=== PATIENT | male | born 1950 | race Caucasian/White ===

== ENCOUNTER 2018-11-25 11:53 | Inpatient (IN) | payer OTHER ==
--- NOTE | 2018-11-26 13:34 | R.PREADM ---
SCREENING DATE AND TIME 11/25/2018 12:03 (CDT) ANTICIPATED REHAB ADMISSION DATE 11/27/2018 REFERRING FACILITY [facility] REFERRAL DATE AND TIME 11/25/2018 12:23 (CDT) ACUTE ADMIT DATE 11/04/2018 Previous Rehabilitation(s): No. REFERRING PHYSICIAN Mark Farias REHAB FACILITY [facility] CLINICAL LIAISON Michael Sheehan PHYSICIAN REVIEWER Dr. Dash Hernandez M.D. MR# [id number] NAME YUMIKO NAVARRO ADDRESS [id number] [place] [address] [address]IP [address] DATE OF 1950 AGE 68 SSN# [id number] GENDER male MARITAL STATUS RACE white ADMIT FROM 02 - [facility] PRE-HOSPITAL LIVING SETTING 01 - Home (private home/apt. board/care, assisted living, long term, transitional living) HOME TYPE AND DETAILS Type of home: single family house # of levels in the residence: 1 # of steps to enter the residence: 3 # of steps within the residence: 0 PRE-HOSPITAL LIVING WITH Family/Relatives FAMILY SUPPORT Yes PRIMARY FAMILY CONTACT NAME Rosetta Amanda PRIMARY FAMILY CONTACT PHONE PHONE PRIMARY FAMILY CONTACT ON ADM.? no IS PRIMARY FAMILY CONTACT AUTH. REP.? no 1ST EMERGENCY CONTACT Rosetta Amanda 1ST CONTACT PHONE PHONE 1ST CONTACT ON ADM. no IS 1ST CONTACT AUTH. REP.? no PHONE 2ND CONTACT ON ADM.? no PATIENT EMPLOYMENT STATUS Retired (for age) PATIENT EMPLOYER No Employer PAYOR INFORMATION: 1ST PAYOR NAME MEDICARE 1ST PAYOR PHONE [phone] 1ST PAYOR INJURY/ILLNESS DUE TO ACCIDENT? No ANOTHER LIBERTARIAN RESPONSIBLE? No PRIMARY REHAB/ACUTE DIAGNOSIS: SEVERE PERIPHERAL ARTERY DISEASE ONSET DATE 11/04/2018 REHAB IMPAIRMENT CATEGORY (TESS): 11 Amputation, other (Amp/NLE) MEETS 60% rule AFFECTED EXTREMITIES: RLE PRIMARY DIAGNOSIS-RELATED SURGERIES: RIGHT TOE AMPUTATION on 11/06/2018 FOOT DEBRIDEMENT on 11/19/2018 FOOT DEBRIDEMENT on 11/13/2018 FEMORAL TIBIAL BYPASS GRAFT on 11/19/2018 ARTERIOGRAM on 11/13/2018 ARTERIOGRAM on 11/06/2018 FOOT DEBRIDEMENT on 11/23/2018 RIGHT TRANSMETATARSAL AMPUTATION on 11/23/2018 WOUND CLOSURE on 11/23/2018 COMORBID REHAB/ACUTE DIAGNOSES: - Non-Tiered Type 2 diabetes mellitus with other specified complication (E11.69) Tobacco abuse - N/A HLD HTN peripheral vascular disease (PVD) SUMMARY OF ACUTE HOSPITALIZATION: Pt. is a 68 yo Right-handed white male. On 11/04/2018 he was admitted to [facility] with diagnosis SEVERE PERIPHERAL ARTERY DISEASE. His impairment category is Amputation of Limb 05 - Other Amputation (05.9). Pre-morbidly, Pt. was independent/mod-I in Self-Care, Sphincter Control, Transfers Control, Locomotio n, Communication, and Social Cognition; and he had good Sphincter Control. Currently, he has deficits of Transfers Control, Locomotion, Endurance, Balance, Safety Awareness, an d Self-Care. Pt. is now referred to [facility] for acute in-patient rehabilitation in order to maximize patient's functional independence in activities of daily living, strength, ROM, and mobi lity. Patient has realistic goal of being discharged at assistance level 6-Rian to reside at Home with Fam jenn/Relatives. CONSULT: Consult Certified Prosthetic for prosthesis construction PAST MEDICAL HISTORY HLD HTN Tobacco abuse Type 2 diabetes mellitus with other specified complication (E11.69) peripheral vascular disease (PVD) MEDICATION ALLERGIES: No Known Drug Allergies (NKDA) ENVIRONMENTAL ALLERGIES: None Known - Substance Allergies None Known - Other Allergies None Known CODE STATUS: Full code WEIGHT/HEIGHT/BMI: WEIGHT 186 lbs HEIGHT 6' 0" BMI 25.2 DIET: - Diet Type ADA 1800 - Diet - Solid Texture Regular - Diet - Liquid Texture Regular - Tube Feed N/A SKIN DIAGRAM: Incision on Right foot; extent - average; stage - NS(Not Stageable). Treatment - Per Physician's Orde rs. REVIEW OF SYSTEMS: - Gen Alert and awake Lying in bed No apparent distress Oriented to: person, time, and place - Vital Signs Temperature: 98.6 F SBP/DBP: 149/57 Pulse: 98 Resp: 18 Vital signs stable, afebrile - CVS RRR VITAL SIGNS Temperature: 98.6 F SBP/DBP: 149/57 Pulse: 98 Resp: 18 Vital signs stable, afebrile CURRENT SPHINCTER CONTROL: Pre-hospital bladder status: continent # of bladder accidents in the last 7 days prior to screenin Pre-hospital bowel status: continent # of bowel accidents in the last 7 days prior to screenin Last Bowel Movement Date: DETAILED CURRENT FUNCTIONAL STATUS: - Bladder accident frequency: Ind - No accidents in the past 7 days - Bowel accident frequency: Ind - No accidents in the past 7 days - Walking score based on distance walked: 1(<=50ft) - Wheelchair score based on distance traveled: 0(N/A) FUNCTIONAL STATUS: - Self-Care A. Eating Ind Ind B. Grooming Ind sup C. Bathing Ind sup D. Dressing - Upper Ind sup E. Dressing - Lower Ind sup F. Toileting Ind sup - Sphincter Control G: Bladder control Ind Ind H: Bowel control Ind Ind - Transfers Control I. Bed/Chair/Wheelchair Ind Brigid J. Toilet Ind Brigid K. Tub/Shower Ind ADNO - Locomotion L. Walk/Wheelchair (C) Ind Brigid L. Walk/Wheelchair (W) Ind Brigid M. Stairs Ind ADNO - Communication N. Comprehension (B) Ind Ind O. Expression (B) Ind Ind - Social Cognition P. Social Interaction Ind Ind Q. Problem Solving Ind Ind R. Memory Ind Ind - Endurance Fair - Balance Fair - Safety Awareness Fair CURRENT FUNC. DEFICITS: Transfers Control, Locomotion, Endurance, Balance, Safety Awareness, and Self-Care THERAPY NOTES FROM ACUTE CARE: Attached. SPECIAL NEEDS: - Safety Concerns Skin breakdown precautions needed due to skin breakdown risk PRECAUTIONS: - Weight Bearing Precaution NWB right LE PATIENT NEEDS ACTIVE AND ONGOING THERAPEUTIC INTERVENTION OF MULTIPLE THERAPY DISCIPLINES, INCLUDING: - Orthotics/Prosthetics Prosthetic Evaluation. - Occupational Therapy Evaluate and Treat. - Physical Therapy Evaluate and Treat. PATIENT NEEDS CLOSE MEDICAL SUPERVISION BY A REHABILITATION PHYSICIAN FOR: Bowel and Bladder Management Coordination of Treatment Team Diabetes Management Medical and Co-Morbidity Management Wound Care Pain Management DVT Management PATIENT REQUIRES 24X7 REHAB NURSING FOR MEDICAL AND FUNCTIONAL MGT. OF THE FOLLOWING DEFICITS: ADL's Ambulation Bowel and Bladder Management Communication Disease Management Medication Management Patient/Family Education Providing Safe Environment Skin Integrity Transfers Pain Management PATIENT REQUIRES INTENSIVE, COORDINATED INTERDISCIPLINARY APPROACH TO REHAB: Arranging Home Equipment/Services Discharge Planning Family Intervention/Training Physics Department Chair/Case Management PATIENT REHAB POTENTIAL: Expected level of measurable improvement will be of a practical value to patient's functional capacit y or adaptations to impairments Has a viable Discharge Plan Medically appropriate; condition is sufficiently stable to participate in intensive rehab program Patient is able and expected to receive 3 hours of individualized therapy daily on at least 5 of ever y 7 days Patient's prognosis for significant practical improvement within a reasonable period of time appears Good DISCHARGE PLAN: - Estimated Length of Stay (days) 13. - Consensus on plan Discharge plan has been discussed with primary caregiver. Patient/Family is in agreement with the devika n. Primary caregiver is in agreement with the plan. - Patient/Family Goals Return home with assistance. - Planned Living Setting Upon Discharge Home, to live with Family/Relatives. RECOMMENDED CARE LEVEL: IRF RECOMMENDATION DETAILS: Recommended Admission to Comprehensive Rehabilitation Program to Increase Functional [place] SCREENER'S COMPLETENESS CONFIRMATION: - Screening Confirmation The patient data collection on this preadmission screening form is finished PHYSICIANS REVIEW AND ADMISSION DETERMINATION Admit - Based on my review of the Pre-Admission Screening results, in my medical judgment and experie nce, I concur with the findings and recommend admission to [facility], as this patient requires an IRF level of care. SIGNATURE PANEL: Clinical Liaison - [electronically] signed by Michael Sheehan on 11/25/2018 at 13:21 (CDT) Physician Reviewer - [electronically] signed by Dr. Dash Hernandez M.D. on 11/26/2018 at 13:33 (CDT )
--- OUTSIDE RECORDS SUMMARY | 2018-11-26 19:05 | XMS REPORT ---
:1950 [facility] Address [address] [place] [address] Dr. Zamora [address] [place] [id number] Care Team Providers Name Role Phone Unavailable Unavailable Unavailable Problems This patient has no known problems. Allergies, Adverse Reactions, Alerts This patient has no known allergies or adverse reactions. Medications This patient has no known medications.
[2018-11-26] MEDS ORDERED: D50W 25 GM/50 ML SYRINGE IV PRN (19:15)
[2018-11-26] MEDS ORDERED: GLUCAGON 1 MG/VIAL IM PRN (19:15)
[2018-11-26 20:18] LABS: Urine Appearance CLEAR; Urine Bilirubin NEGATIVE (NEG); Urine Blood NEGATIVE (NEG); Urine Color DK YELLOW; Urine Glucose NEGATIVE (NEG); Urine Protein TRACE (NEG)
[2018-11-26] MEDS: INSULIN -REGULAR HUMAN 50 UNIT/0.5 ML ML SQ SCH (20:25)
[2018-11-26 20:36] LABS: Urine Bacteria <20 /HPF (NONE SEEN); Urine RBC <5 /HPF (NONE SEEN)
[2018-11-26] MEDS: ATORVASTATIN 80 MG TAB PO SCH (20:36)
[2018-11-26 20:37] LABS: Urine Culture Reflex Order NOT NEEDED
[2018-11-27 06:42] LABS: Absolute Lymphocytes (CBC) 2.5 K/uL (0.7-4.9); Absolute Monocytes 0.9 K/uL (0.1-1.3); Absolute Neutrophil 6.1 K/uL (1.8-8.0); Basophils % 1.1 % (0-1.3); Lymphocytes % 24.6 % (15.3-44.8); MPV 6.7 fL (7.6-11.3); Monocytes % 9.3 % (3.3-12.3); RBC Red Blood Cell Count 2.89 M/uL (4.33-5.43)
[2018-11-27 07:01] LABS: BUN Blood Urea Nitrogen 16 mg/dL (7-18); Bicarbonate 29 mmol/L (21-32); Glucose Level 121 mg/dL (74-106); Magnesium 2.3 mg/dL (1.8-2.4); Potassium 4.3 mmol/L (3.5-5.1); Prealbumin 9.1 mg/dL (20-40); Sodium Level 139 mmol/L (136-145)
[2018-11-27] MEDS: CLOPIDOGREL 75 MG TABLET PO SCH (07:16)
[2018-11-27] MEDS: INSULIN -REGULAR HUMAN 50 UNIT/0.5 ML ML SQ SCH ×4 (07:30→21:39)
[2018-11-27] MEDS: METFORMIN HCL 500 MG TAB PO SCH (07:40)
[2018-11-27] MEDS: HYDROCODONE/APAP 5/325 MG TAB PO PRN ×2 (07:40→12:54)
[2018-11-27] MEDS: INSULIN GLARGINE 100 UNITS/ML SQ SCH (09:19)
[2018-11-27] MEDS: INSULIN LISPRO 100 UNIT/1 ML SQ SCH ×3 (09:20→17:38)
--- NOTE | 2018-11-27 10:04 | P.RH.PN ---
Estimated Length of Stay: 14 Expected Discharge Date: 12/09/18 Discharge Disposition Plan: Home Family Support: Yes Residential Goal: Mobility, Transfers, Self Care Vital Signs: Last Vital Signs Temp 97.8 F 11/27/18 07:10 Pulse 75 11/27/18 07:10 Resp 18 11/27/18 07:10 BP 100/52 L 11/27/18 07:10 Pulse Ox 91 11/27/18 07:10 Laboratory: Laboratory Last Values WBC 10.1 K/uL (4.3-10.9) 11/27/18 06:25 RBC 2.89 M/uL (4.33-5.43) L 11/27/18 06:25 Hgb 8.7 g/dL (13.6-17.9) L 11/27/18 06:25 Hct 25.0 % (39.6-49.0) L 11/27/18 06:25 MCV 86.5 fL (80-100) 11/27/18 06:25 MCH 29.9 pg (27.0-35.0) 11/27/18 06:25 MCHC 34.6 g/dL (32.0-36.0) 11/27/18 06:25 RDW 14.0 % (12.1-15.2) 11/27/18 06:25 Plt Count 490 K/uL (152-406) H 11/27/18 06:25 MPV 6.7 fL (7.6-11.3) L 11/27/18 06:25 Neutrophils % 61.0 % (41.7-73.7) 11/27/18 06:25 Lymphocytes % 24.6 % (15.3-44.8) 11/27/18 06:25 Monocytes % 9.3 % (3.3-12.3) 11/27/18 06:25 Eosinophils % 4.0 % (0-4.4) 11/27/18 06:25 Basophils % 1.1 % (0-1.3) 11/27/18 06:25 Absolute Neutrophils 6.1 K/uL (1.8-8.0) 11/27/18 06:25 Absolute Lymphocytes 2.5 K/uL (0.7-4.9) 11/27/18 06:25 Absolute Monocytes 0.9 K/uL (0.1-1.3) 11/27/18 06:25 Absolute Eosinophils 0.4 K/uL (0-0.5) 11/27/18 06:25 Absolute Basophils 0.1 K/uL (0-0.5) 11/27/18 06:25 Sodium 139 mmol/L (136-145) 11/27/18 06:25 Potassium 4.3 mmol/L (3.5-5.1) 11/27/18 06:25 Chloride 105 mmol/L (98-107) 11/27/18 06:25 Carbon Dioxide 29 mmol/L (21-32) 11/27/18 06:25 BUN 16 mg/dL (7-18) 11/27/18 06:25 Creatinine 0.61 mg/dL (0.55-1.3) 11/27/18 06:25 Estimated GFR > 90 mL/min (=/>90) 11/27/18 06:25 Glucose 121 mg/dL (74-106) H 11/27/18 06:25 POC Glucose 139 mg/dl (65-120) H 11/27/18 07:09 Calcium 8.4 mg/dL (8.5-10.1) L 11/27/18 06:25 Magnesium 2.3 mg/dL (1.8-2.4) 11/27/18 06:25 Albumin 2.0 g/dL (3.4-5.0) L 11/27/18 06:25 Prealbumin 9.1 mg/dL (20-40) L 11/27/18 06:25 Urine Color Dk yellow 11/26/18 19:30 Urine Appearance Clear 11/26/18 19:30 Urine pH 6.0 (5.0-7.0) 11/26/18 19:30 Ur Specific [place] 1.020 (1.005-1.030) 11/26/18 19:30 Urine Ketones Negative (NEG) 11/26/18 19:30 Urine Blood Negative (NEG) 11/26/18 19:30 Urine Nitrite Negative (NEG) 11/26/18 19:30 Urine Bilirubin Negative (NEG) 11/26/18 19:30 Urine Urobilinogen 4.0 mg/dL (0.2-1.0) H 11/26/18 19:30 Ur Leukocyte Esterase 1+ (NEG) H 11/26/18 19:30 Urine RBC <5 /HPF (NONE SEEN) 11/26/18 19:30 Urine WBC 10-20 /HPF (<5) H 11/26/18 19:30 Ur Squamous Epith Cells <5 /HPF (NONE SEEN) 11/26/18 19:30 Urine Bacteria <20 /HPF (NONE SEEN) 11/26/18 19:30 Urine Culture Reflexed Not needed 11/26/18 19:30 Urine Glucose Negative (NEG) 11/26/18 19:30 Urine Total Protein Trace (NEG) 11/26/18 19:30 Weight: 186 lb Wound Present: Yes Closed Surgical Incision Present: Yes Negative Pressure Wound Therapy Present: No Physician Update: Left foot diabetic foot ulcer and he refuses to stop smoking and use nicotine patch. He is being evaluated by physical and occupational therapy. Summary: Patient's care plan and correction goals have been reviewed and revised as necessary. Please see the Rehabilitation Signature page for all necessary signatures.
[2018-11-27] MEDS: FERROUS SULFATE 325 MG TAB PO SCH (11:52)
[2018-11-27] MEDS: FE SULF/FA/VIT B COMP & C TAB PO SCH (11:52)
[2018-11-27] MEDS ORDERED: LACTULOSE 20 GM/30 ML UCUP PO PRN (13:15)
[2018-11-27] MEDS ORDERED: MELATONIN 3 MG TABLET PO PRN (13:15)
--- NOTE | 2018-11-27 13:36 | R.HP ---
FACILITY: [facility] ENCOUNTER DATE AND TIME: 11/27/2018 13:28 (CDT) MR#: [id number] NAME YUMIKO NAVARRO ADDRESS: [address] [place] [address] [address] [facility] [place]IP [address] PHONE: DATE OF : 1950 AGE: 68 SSN# [id number] GENDER: Male DEXTERITY Right-handed MARITAL STATUS RACE White PRE-HOSPITAL LIVING SETTING 01 - Home (private home/apt. board/care, assisted living, snf, transitional living) PRE-HOSPITAL LIVING WITH Family/Relatives ENCOUNTER PHYSICIAN: Dr. Dash Hernandez M.D. REFERRING DOCTOR: joan Farias DATE OF ADMISSION: 11/27/2018 13:29 (Central Daylight Time) REFERRING FACILITY [facility] HOME TYPE AND DETAILS: Type of home: single family house # of levels in the residence: 1 # of steps to enter the residence: 3 # of steps within the residence: 0 ADMISSION DIAGNOSIS: SEVERE PERIPHERAL ARTERY DISEASE ONSET DATE: 11/04/2018 PRIMARY DIAGNOSIS-RELATED SURGERIES: RIGHT TOE AMPUTATION on 11/06/2018 FOOT DEBRIDEMENT on 11/19/2018 FOOT DEBRIDEMENT on 11/13/2018 FEMORAL TIBIAL BYPASS GRAFT on 11/19/2018 ARTERIOGRAM on 11/13/2018 ARTERIOGRAM on 11/06/2018 FOOT DEBRIDEMENT on 11/23/2018 RIGHT TRANSMETATARSAL AMPUTATION on 11/23/2018 WOUND CLOSURE on 11/23/2018 SECONDARY/COMORBID DIAGNOSES (TIERED): - Tier 3 Type 2 diabetes mellitus with other specified complication (E11.69) - Non-Tiered Tobacco abuse - N/A HLD HTN peripheral vascular disease (PVD) HISTORY OF PRESENT ILLNESS (HPI): Pt. is a 68 yo Right-handed white male. On 11/04/2018 he was admitted to [facility] with diagnosis SEVERE PERIPHERAL ARTERY DISEASE. His impairment category is Amputation of Limb 05 - Other Amputation (05.9). Pre-morbidly, Pt. was independent/mod-I in Self-Care, Sphincter Control, Transfers Control, Locomotio n, Communication, and Social Cognition; and he had good Sphincter Control. Currently, he has deficits of Transfers Control, Locomotion, Endurance, Balance, Safety Awareness, an d Self-Care. Pt. is now referred to [facility] for acute in-patient rehabilitation in order to maximize patient's functional independence in activities of daily living, strength, ROM, and mobi lity. Patient has realistic goal of being discharged at assistance level 6-Rian to reside at Home with Fam jenn/Relatives. MEDICATION ALLERGIES: No Known Drug Allergies (NKDA) ENVIRONMENTAL ALLERGIES: None Known - Substance Allergies None Known - Other Allergies None Known PAST MEDICAL HISTORY: HLD HTN Tobacco abuse Type 2 diabetes mellitus with other specified complication (E11.69) peripheral vascular disease (PVD) FAMILY HISTORY: Family history is not contributory. SOCIAL HISTORY: - Home Living Family/Relatives REVIEW OF SYSTEMS: - Gen No Chills Fatigue No Fever - Eyes No Double Vision No itchiness - ENMT No Difficulty Swallowing - CVS No Chest Discomfort No Chest Pain Fatigue No Weight Gain - Resp No Cough Shortness of Breath - GI Continent No Abdominal Pain No Constipation No Diarrhea - Continent No Kidney Pain No Painful Urination No Urinary Urgency - MSK No Joint Pain Muscle Cramps Stiffness - Skin No Itching No Rash No Suspicious Lesions - Neuro Coordination Difficulty No Difficulty with Concentration No Memory Loss No Seizures No Weakness - Psych No Anxiety No Depression No HIV Exposure No Persistent Infections No Seasonal Allergies - Endo No Cold/Heat Intolerance No Excessive Hunger No Excessive Thirst No Excessive Urination PHYSICAL EXAM - Gen Alert and awake Lying in bed No apparent distress Oriented to: person, time, and place - Skin Right foot bandage in place with good hemostasis. No abnormalities - Eyes No abnormalities - ENMT No abnormalities - Neck No abnormalities - CVS RRR - Chest No abnormalities - Abd + bowel sounds - GI nondistended Deferred - No abnormalities - Ext No significant edema - MSK 4+/5 weakness in both lower extremities. - Neuro No focal deficits - Psych No abnormalities VITAL SIGNS Temperature: 97.8 F SBP/DBP: 100/52 Pulse: 75 Resp: 16 NURSING: - Shower allowing shower - Lab Results blood Sugar Check ACHS PRECAUTIONS: - Weight Bearing Precaution NWB right LE ACTIVITIES OOB only with supervision FUNCTIONAL STATUS: - Self-Care A. Eating Ind Ind B. Grooming Ind sup C. Bathing Ind sup D. Dressing - Upper Ind sup E. Dressing - Lower Ind sup F. Toileting Ind sup - Sphincter Control G: Bladder control Ind Ind H: Bowel control Ind Ind - Transfers Control I. Bed/Chair/Wheelchair Ind Brigid J. Toilet Ind Brigid K. Tub/Shower Ind ADNO - Locomotion L. Walk/Wheelchair (C) Ind Brigid L. Walk/Wheelchair (W) Ind Brigid M. Stairs Ind ADNO - Communication N. Comprehension (B) Ind Ind O. Expression (B) Ind Ind - Social Cognition P. Social Interaction Ind Ind Q. Problem Solving Ind Ind R. Memory Ind Ind - Endurance Fair - Balance Fair - Safety Awareness Fair CURRENT FUNC. DEFICITS: Transfers Control, Locomotion, Endurance, Balance, Safety Awareness, and Self-Care ASSESSMENT: Pt. is a 68 yo Right-handed white male.On 11/04/2018 he was admitted to [facility] with diagnosis SEVERE PE RIPHERAL ARTERY DISEASE.His impairment category is Amputation of Limb 05 - Other Amputation (05.9).P re-morbidly, Pt. was independent/mod-I in Self-Care, Sphincter Control, Transfers Control, Locomotion , Communication, and Social Cognition; and he had good Sphincter Control.Currently, he has deficits o f Transfers Control, Locomotion, Endurance, Balance, Safety Awareness, and Self-Care.Pt. is now refer red to [facility] for acute in-patient rehabilitation in order to maximize pat ient's functional independence in activities of daily living, strength, ROM, and mobility.- Rehab Goa l Patient has realistic goal of being discharged at assistance level 6-Rian to reside at Home with Fam jenn/Relatives. REHAB PLAN: - Physical Therapy Gait dysfunction - to improve, our physical therapists will perform initial evaluation of pt's status upon admission and devise an individualized program for Gait Training, and Wheel Chair mobility Inability to transfer - to improve, our physical therapists will perform initial evaluation of pt's s tatus upon admission and devise an individualized program for Bed mobility Need for home safety evaluation - to improve, our physical therapists will perform initial evaluation of pt's status upon admission and devise an individualized program for Home Evaluation Need in caregiver upon discharge - to improve, our physical therapists will perform initial evaluatio n of pt's status upon admission and devise an individualized program for Caregiver Training New precaution - to improve, our physical therapists will perform initial evaluation of pt's status u landy admission and devise an individualized program for Patient precaution education Edema - to improve, our physical therapists will perform initial evaluation of pt's status upon admi ssion and devise an individualized program for Elevation Training, and Lymphedema Therapy Poor balance - to improve, our physical therapists will perform initial evaluation of pt's status upo n admission and devise an individualized program for Balance Training Poor endurance - to improve, our physical therapists will perform initial evaluation of pt's status u landy admission and devise an individualized program for Endurance Training Weakness - to improve, our physical therapists will perform initial evaluation of pt's status upon ad mission and devise an individualized program for Aquatic Therapy, Neuromuscular Reeducation, and Stre ngthening Achieving independence - to improve, our physical therapists will perform initial evaluation of pt's status upon admission and devise an individualized program for Community Reintegration Activities - Occupational Therapy ADL deficits - to improve, our occupation therapists will perform initial evaluation of pt's status u landy admission and devise an individualized program for Bathing, Bed mobility, Community Reintegration , Cooking, Dressing, Eating, Fine Motor Skills, Grooming, Homemaking, Kitchen Mobility, Laundry, Pretty ent Education, Safety Awareness, Splinting - Positioning, Transfers(Toilet, Tub, Shower), and Wheel C hair Management Need for health care recruiter - to improve, our occupation therapists will perform initial evaluation of pt's s tatus upon admission and devise an individualized program for Caregiver Training Weakness - to improve, our occupation therapists will perform initial evaluation of pt's status upon admission and devise an individualized program for Aquatic Therapy, Balance, Endurance, UE ROM, and U E strengthening MEDICAL PLAN: - Diet Type Start ADA 1800 - Diet - Liquid Texture Start Regular - Tube Feed Start N/A - Lab Results blood Sugar Check ACHS - Weight Bearing Precaution NWB right LE - N/A Perform Consult Certified Prosthetic for prosthesis construction - Diet - Solid Texture Regular - Shower shower DISCHARGE PLAN: - Estimated Length of Stay (days) 13. - Consensus on plan Discharge plan has been discussed with primary caregiver. Patient/Family is in agreement with the devika n. Primary caregiver is in agreement with the plan. - Patient/Family Goals Return home with assistance. - Planned Living Setting Upon Discharge Home, to live with Family/Relatives. SIGNATURE PANEL: (CDT)
--- NOTE | 2018-11-27 13:38 | PAPE ---
PATIENT: [facility] MR# [id number] REFERRING DOCTOR joan Farias EVALUATION DATE AND TIME 11/27/2018 13:36 (CDT) YUMIKO MULLINS DATE OF 1950 AGE 68 PHONE N# [id number] GENDER male EVALUATING PHYSICIAN Dr. Dash Hernandez M.D. ADMISSION DIAGNOSIS: SEVERE PERIPHERAL ARTERY DISEASE ONSET DATE 11/04/2018 SECONDARY/COMORBID DIAGNOSES TIERED: - Non-Tiered Type 2 diabetes mellitus with other specified complication (E11.69) Tobacco abuse - N/A HLD HTN peripheral vascular disease (PVD) POST-ADMISSION FUNCTIONAL/MEDICAL STATUS: - Bladder Same accident frequency: Ind - No accidents in the past 7 days - Bowel Same accident frequency: Ind - No accidents in the past 7 days - Walking Same score based on distance walked: 1(<=50ft) - Wheelchair Same score based on distance traveled: 0(N/A) STATUS CHANGE EVALUATION: No change in Functional or Medical Status is identified compared with Pre-Admission screening. PATIENT NEEDS CLOSE MEDICAL SUPERVISION BY A REHABILITATION PHYSICIAN FOR: Bowel and Bladder Management Coordination of Treatment Team Diabetes Management Medical and Co-Morbidity Management Wound Care Pain Management DVT Management PATIENT REQUIRES 24X7 REHAB NURSING FOR MEDICAL AND FUNCTIONAL MGT. OF THE FOLLOWING DEFICITS: ADL's Ambulation Bowel and Bladder Management Communication Disease Management Medication Management Patient/Family Education Providing Safe Environment Skin Integrity Transfers Pain Management PATIENT REQUIRES INTENSIVE, COORDINATED INTERDISCIPLINARY APPROACH TO REHAB: Arranging Home Equipment/Services Discharge Planning Family Intervention/Training Pizza Driver/Case Management LIST OF IDENTIFIED AND POTENTIAL PROBLEMS: Alteration in leisure activities Bladder, Incontinence Bowel, Incontinence Diabetes, Hyperglycemia/hypoglycemia Issues Infection, Actual or Potential Mobility Impaired Pain, Alteration in Comfort Self Care Deficit Skin Integrity, Actual or Potential Urinary Tract Infection (UTI), Actual or Potential PATIENT COULD BE AT RISK FOR COMPLICATIONS FROM ADVERSE MEDICAL CONDITIONS DUE TO HIS/HER COMORBIDITI ES AND THE RIGORS OF THE INTENSIVE REHABILLITATION PROGRAM. METHODS OR INTERVENTIONS TO AVOID COMPLIC ATIONS INCLUDE: - Deep Vein Thrombosis (DVT) Prophylaxis therapy for prevention . Sequential Compression Device (SCD). TE D Hose. - Bleeding Assess lab values and manage abnormalities. Nursing to teach precautions for anti-coagulation therapy . Wound to be assessed every shift. - Infection Clinical staff to assess and manage the signs and symptoms of infection including fever, redness, war mth, etc. - Urinary Tract Infection - Falls Patient will be evaluated for Fall Precautions and will be placed on Fall Precautions as indicated pe r protocol. - Skin Breakdown Nursing will assess skin daily using assessment tool and will place on Skin Breakdown Precautions as indicated per protocol. - Pain Clinical staff may employ non-medication methods such as massage, distraction, decrease stimulus, etc . as needed. Clinical staff will assess patient's pain level every shift per protocol to assess and e nsure pain management effectiveness. Medications will be given and the pain level re-assessed. PRELIMINARY PLAN OF CARE: - Physical Therapy Patient needs Physical Therapy for a daily minimum of 1.5 hours at least 5 out of 7 days, to improve: Mobility, Strengthening, Transfers, Stretching, ROM, Endurance, Ability to manage stairs, Gait, and Balance. - Speech Therapy Patient needs Speech Therapy for a daily minimum of 0.5 hours at least 5 out of 7 days, to improve: S wallowing, Cognition, Language Skills, and Compensatory Strategies. - Rehabilitation Nursing Patient requires 24x7 Rehabilitation Nursing for: Pain Issues, Identifying and preventing risk factor s, Monitoring and reporting current medical conditions, Assisting with ambulation and transfer, Star ting with all ADL-s, Teaching patients about disease process and medications, Family teaching, Provid ing safe environment, Bowel and Bladder Issues, Skin Integrity, and Medication Management. Patient needs Pizza Driver and/or Case Management for: Discharge Planning, Arranging Home Equipmen t or Services, and Family Interventions. - Dietary and Nutrition Services Patient needs Dietary and Nutrition Services for: Adequate Nutrition, Nutritional Supplements, and Nu tritional Education. - Occupational Therapy Patient needs Occupational Therapy for a daily minimum of 1.5 hours at least 5 out of 7 days, to impr ove Activities of Daily Living, including: Eating, Grooming, Bathing, Dressing, Toileting, Toilet Tra nsfers, Community Reintegration, Higher functional activities, Adaptive Equipment, Splinting, Househo ld Tasks, and Other activities as determined. POTENTIAL FUNCTIONAL GOALS FOR PATIENT TO ACHIEVE BY DISCHARGE: - Safety Precaution Patient will remain free from falls or injury at time of discharge. - Bed Mobility Patient will perform bed mobility at 4-Brigid level of assistance. - Transfers Patient will complete transfers from bed to chair at 4-Brigid level of assistance. - Mobility Patient will ambulate 150 ft with 4-Brigid level of assistance with RW. PATIENT REHAB POTENTIAL Expected level of measurable improvement will be of a practical value to patient's functional capacit y or adaptations to impairments Has a viable Discharge Plan Medically appropriate; condition is sufficiently stable to participate in intensive rehab program Patient is able and expected to receive 3 hours of individualized therapy daily on at least 5 of ever y 7 days Patient's prognosis for significant practical improvement within a reasonable period of time appears Good DISCHARGE PLAN: - Estimated Length of Stay (days) 13. - Consensus on plan Discharge plan has been discussed with primary caregiver. Patient/Family is in agreement with the devika n. Primary caregiver is in agreement with the plan. - Patient/Family Goals Return home with assistance. - Planned Living Setting Upon Discharge Home, to live with Family/Relatives. CONCLUSION ON REHABILITATION NECESSITY: I have evaluated patient's pre-admission functional status and, comparing it to the patient's post-ad mission functional status now, I conclude that the pre-admission assessment was accurate. Patient's c ondition on admission supports the medical necessity of admission to IRF. It is safe to proceed with patient's therapy program. SIGNATURE PANEL: (CDT)
--- NOTE | 2018-11-27 16:24 | FAST ---
ENCOUNTER DATE AND TIME: 11/27/2018 08:00 (CDT) NAME YUMIKO NAVARRO DATE OF : 1950 DATE OF ADMISSION: 11/27/2018 13:29 (CDT) PHONE: AGE: 68 N# [id number] GENDER: Male ENCOUNTER PHYSICIAN: Dr. Dash Hernandez M.D. 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 EATING: Activity did not occur on this shift EATING - SCORE: 0-UNK GROOMING: Activity did not occur on this shift GROOMING - SCORE: 0-UNK BATHING: Activity did not occur on this shift BATHING - SCORE: 0-UNK DRESSING - UPPER BODY: Activity did not occur on this shift Patient is not dressing in public clothing ARTICLES SCORE Total number of steps: 0 DRESSING - UPPER BODY - SCORE: 0-UNK DRESSING - LOWER BODY: Activity did not occur on this shift Patient is not dressing in public clothing ARTICLES SCORE Total number of steps: 0 DRESSING - LOWER BODY - SCORE: 0-UNK TOILETING: Activity did not occur on this shift TOILETING - SCORE: 0-UNK BLADDER MANAGEMENT: Activity did not occur on this shift BLADDER MANAGEMENT - SCORE: 7-IND BOWEL MANAGEMENT: Activity did not occur on this shift BOWEL MANAGEMENT - SCORE: 7-IND TRANSFERS: BED, CHAIR, WHEELCHAIR: TRANSFERS: BED, CHAIR, WHEELCHAIR - STEP 1: Does the patient require assistance of a person or device, or need extra time with bed, chair, or whe elchair transfers? Yes. TRANSFERS: BED, CHAIR, WHEELCHAIR - STEP 2: Does the patient require the assistance of a helper? Yes. TRANSFERS: BED, CHAIR, WHEELCHAIR - STEP 3: How much assistance does the patient require from the helper? Steadying/guiding assistance TRANSFERS: BED, CHAIR, WHEELCHAIR - SCORE: 4-MIN TRANSFERS: TOILET: TRANSFERS: TOILET - STEP 1: Does the patient require the assistance of a person or device, or need extra time with toilet transfe rs? Yes. TRANSFERS: TOILET - STEP 2: Does the patient require the assistance of a helper? Yes. TRANSFERS: TOILET - STEP 3: How much assistance does the patient require from the helper? Only supervision, cuing, coaxing, OR he lp to set out transfer equipment or to lock brakes and/or lift foot rests TRANSFERS: TOILET - SCORE: 5-SUP TRANSFERS: SHOWER: Activity did not occur on this shift TRANSFERS: SHOWER - SCORE: 0-UNK TRANSFERS: TUB: Activity did not occur on this shift TRANSFERS: TUB - SCORE: 0-UNK LOCOMOTION: WALK: Patient walks less than 50 feet LOCOMOTION: WALK - SCORE: 1-DEP LOCOMOTION: WHEELCHAIR: LOCOMOTION: WHEELCHAIR - STEP 1: Does the patient need help to go 150 feet in a wheelchair? No. LOCOMOTION: WHEELCHAIR - SCORE: 6-ANIYA LOCOMOTION: STAIRS: Activity did not occur on this shift LOCOMOTION: STAIRS - SCORE: 0-UNK COMPREHENSION: COMPREHENSION - SCORE: 0-UNK EXPRESSION EXPRESSION - SCORE: 0-UNK SOCIAL INTERACTION: SOCIAL INTERACTION - SCORE: 0-UNK PROBLEM SOLVING: PROBLEM SOLVING - SCORE: 0-UNK MEMORY: MEMORY - SCORE: 0-UNK SIGNATURE PANEL: The following modified sections: Transfers: Bed, Chair, Wheelchair - Score, Transfers: Toilet - Score , Locomotion: Walk - Score, Locomotion: Wheelchair - Score, Locomotion: Stairs - Score were [electron ically] signed by Ronal Malloy PT on FriNov 27 2018 16:23:45 T-0500 (Central Daylight Time)
--- NOTE | 2018-11-27 16:39 | FAST ---
SHIFT START DATE/TIME: 11/27/2018 07:00 (CDT) SHIFT END DATE/TIME: 11/27/2018 19:00 (CDT) NAME YUMIKO NAVARRO DATE OF : 1950 DATE OF ADMISSION: 11/27/2018 13:29 (CDT) PHONE: AGE: 68 N# [id number] GENDER: Male ENCOUNTER PHYSICIAN: Dr. Dash Hernandez M.D. 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 EATING: EATING - STEP 1: Does the patient require the assistance of a person or device, or need extra time when eating? No. EATING - SCORE: 7-IND GROOMING: Activity did not occur on this shift GROOMING - SCORE: 0-UNK BATHING: Activity did not occur on this shift BATHING - SCORE: 0-UNK DRESSING - UPPER BODY: Activity did not occur on this shift ARTICLES SCORE Total number of steps: 0 DRESSING - UPPER BODY - SCORE: 0-UNK DRESSING - LOWER BODY: Activity did not occur on this shift ARTICLES SCORE Total number of steps: 0 DRESSING - LOWER BODY - SCORE: 0-UNK TOILETING: TOILETING - STEP 1: Does the patient require the assistance of a person or device, or need extra time with toileting? No. TOILETING - SCORE: 7-IND BLADDER MANAGEMENT: BLADDER MANAGEMENT - STEP 1: Does the patient control the bladder completely and intentionally without equipment or devices or med ications, and is always continent? Yes. BLADDER MANAGEMENT - SCORE: 7-IND BLADDER MANAGEMENT - FREQUENCY OF ACCIDENTS: BLADDER MANAGEMENT(FA) - STEP 1: How many accidents has the patient had during the current shift? 0 BOWEL MANAGEMENT: BOWEL MANAGEMENT - STEP 1: Does the patient control bowels completely and intentionally without equipment devices or medications AND is always continent? Yes. BOWEL MANAGEMENT - SCORE: 7-IND BOWEL MANAGEMENT - FREQUENCY OF ACCIDENTS: BOWEL MANAGEMENT(FA) - STEP 1: How many accidents has the patient had during the current shift? 0 TRANSFERS: BED, CHAIR, WHEELCHAIR: TRANSFERS: BED, CHAIR, WHEELCHAIR - STEP 1: Does the patient require assistance of a person or device, or need extra time with bed, chair, or whe elchair transfers? Yes. TRANSFERS: BED, CHAIR, WHEELCHAIR - STEP 2: Does the patient require the assistance of a helper? Yes. TRANSFERS: BED, CHAIR, WHEELCHAIR - STEP 3: How much assistance does the patient require from the helper? Steadying/guiding assistance TRANSFERS: BED, CHAIR, WHEELCHAIR - SCORE: 4-MIN TRANSFERS: TOILET: TRANSFERS: TOILET - STEP 1: Does the patient require the assistance of a person or device, or need extra time with toilet transfe rs? Yes. TRANSFERS: TOILET - STEP 2: Does the patient require the assistance of a helper? Yes. TRANSFERS: TOILET - STEP 3: How much assistance does the patient require from the helper? Patient performs half or more of the tr ansferring tasks TRANSFERS: TOILET - STEP 4: Does the patient need only incidental help such as contact guard or steadying during toilet transfer? Yes. TRANSFERS: TOILET - SCORE: 4-MIN TRANSFERS: SHOWER: Activity did not occur on this shift TRANSFERS: SHOWER - SCORE: 0-UNK TRANSFERS: TUB: Activity did not occur on this shift TRANSFERS: TUB - SCORE: 0-UNK LOCOMOTION: WALK: Activity did not occur on this shift LOCOMOTION: WALK - SCORE: 0-UNK LOCOMOTION: WHEELCHAIR: Activity did not occur on this shift LOCOMOTION: WHEELCHAIR - SCORE: 0-UNK COMPREHENSION: COMPREHENSION - SCORE: 0-UNK EXPRESSION EXPRESSION - SCORE: 0-UNK SOCIAL INTERACTION: SOCIAL INTERACTION - SCORE: 0-UNK PROBLEM SOLVING: PROBLEM SOLVING - SCORE: 0-UNK MEMORY: MEMORY - SCORE: 0-UNK SIGNATURE PANEL: The following modified sections: Eating - Score, Grooming - Score, Bathing - Score, Dressing - Upper Body - Score, Dressing - Lower Body - Score, Toileting - Score, Bladder Management - Score, Bowel Man agement - Score, Transfers: Bed, Chair, Wheelchair - Score, Transfers: Toilet - Score, Transfers: Cammie wer - Score, Transfers: Tub - Score, Locomotion: Walk - Score, Locomotion: Wheelchair - Score, Compre hension - Score, Expression - Score, Social Interaction - Score, Problem Solving - Score, Memory - Sc ore were [electronically] signed by Cielo Falcon CNA on FriNov 27 2018 16:38:04 [facility]-0500 (Centra l Daylight Time)
[2018-11-27] MEDS: ATORVASTATIN 80 MG TAB PO SCH (21:34)
[2018-11-27] MEDS: APIXABAN 2.5 MG TABLET PO SCH (21:35)
[2018-11-27] MEDS: CRANBERRY FRUIT EXTRACT 200 MG CAP PO SCH (21:35)
[2018-11-27] MEDS: PROMOD 30 ML DOSE PO SCH (21:35)
[2018-11-28] MEDS: HYDROCODONE/APAP 5/325 MG TAB PO PRN ×2 (01:15→21:23)
--- NOTE | 2018-11-28 02:25 | FAST ---
SHIFT START DATE/TIME: 11/27/2018 19:00 (CDT) SHIFT END DATE/TIME: 11/28/2018 07:00 (CDT) NAME YUMIKO NAVARRO DATE OF : 1950 DATE OF ADMISSION: 11/27/2018 13:29 (CDT) PHONE: AGE: 68 N# [id number] GENDER: Male ENCOUNTER PHYSICIAN: Dr. Dash Hernandez M.D. 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 EATING: Activity did not occur on this shift EATING - SCORE: 0-UNK GROOMING: Activity did not occur on this shift GROOMING - SCORE: 0-UNK BATHING: Activity did not occur on this shift BATHING - SCORE: 0-UNK DRESSING - UPPER BODY: Patient is not dressing in public clothing ARTICLES SCORE Total number of steps: 0 DRESSING - UPPER BODY - SCORE: 0-UNK DRESSING - LOWER BODY: Patient is not dressing in public clothing ARTICLES SCORE Total number of steps: 0 DRESSING - LOWER BODY - SCORE: 0-UNK TOILETING: TOILETING - STEP 1: Does the patient require the assistance of a person or device, or need extra time with toileting? Yes . TOILETING - STEP 2: Does the patient require the assistance of a helper? Yes. TOILETING - STEP 3: How much assistance does the patient require from the helper? Hands-on assistance from the helper TOILETING - STEP 4: Of the 3 tasks: 1) Adjusting clothing prior to use, 2) Cleansing of perineal area, 3) Adjusting clot alla after use; How many tasks does the patient perform WITHOUT assistance of the helper? Three tasks with steadying assistance from the helper TOILETING - SCORE: 4-MIN BLADDER MANAGEMENT: BLADDER MANAGEMENT - STEP 1: Does the patient control the bladder completely and intentionally without equipment or devices or med ications, and is always continent? No. BLADDER MANAGEMENT - STEP 2: Does the patient require the assistance of a helper? Yes. BLADDER MANAGEMENT - STEP 3: How much assistance does the patient require from the helper? Only set-up of equipment - such as plac ing it within reach of the patient or emptying a device - to maintain either satisfactory voiding pat tern or managing an external device, such as an absorbent pad, ileal device, or catheter BLADDER MANAGEMENT - SCORE: 5-SUP BOWEL MANAGEMENT: Activity did not occur on this shift BOWEL MANAGEMENT - SCORE: 7-IND TRANSFERS: BED, CHAIR, WHEELCHAIR: TRANSFERS: BED, CHAIR, WHEELCHAIR - STEP 1: Does the patient require assistance of a person or device, or need extra time with bed, chair, or whe elchair transfers? Yes. TRANSFERS: BED, CHAIR, WHEELCHAIR - STEP 2: Does the patient require the assistance of a helper? Yes. TRANSFERS: BED, CHAIR, WHEELCHAIR - STEP 3: How much assistance does the patient require from the helper? Steadying/guiding assistance TRANSFERS: BED, CHAIR, WHEELCHAIR - SCORE: 4-MIN TRANSFERS: TOILET: TRANSFERS: TOILET - STEP 1: Does the patient require the assistance of a person or device, or need extra time with toilet transfe rs? Yes. TRANSFERS: TOILET - STEP 2: Does the patient require the assistance of a helper? Yes. TRANSFERS: TOILET - STEP 3: How much assistance does the patient require from the helper? Only supervision, cuing, coaxing, OR he lp to set out transfer equipment or to lock brakes and/or lift foot rests TRANSFERS: TOILET - SCORE: 5-SUP TRANSFERS: SHOWER: Activity did not occur on this shift TRANSFERS: SHOWER - SCORE: 0-UNK TRANSFERS: TUB: Activity did not occur on this shift TRANSFERS: TUB - SCORE: 0-UNK LOCOMOTION: WALK: Activity did not occur on this shift LOCOMOTION: WALK - SCORE: 0-UNK LOCOMOTION: WHEELCHAIR: Activity did not occur on this shift LOCOMOTION: WHEELCHAIR - SCORE: 0-UNK COMPREHENSION: COMPREHENSION: TYPE: Both COMPREHENSION - STEP 1: Does the patient require help from a person or device, or need extra time to understand complex and a bstract ideas (such as current events, finances, discharge planning, medical issues, relationships, e tc)? No. COMPREHENSION - STEP 2: Does the patient need extra time, require an assistive device (such as glasses for visual comprehensi on or a hearing aid for auditory comprehension) or does s/he have mild difficulty understanding compl ex and abstract information? Yes. COMPREHENSION - SCORE: 6-ANIYA EXPRESSION EXPRESSION: TYPE: Both EXPRESSION - STEP 1: Does the patient require help from a person or device, or need extra time expressing complex and abst ract ideas (such as current events, finances, discharge planning, medical issues, relationships, etc) ? No. EXPRESSION - STEP 2: Does the patient need extra time, require an assistive device (such as augmentive communication syste m or a communication board), OR does s/he have mild difficulty expressing complex and abstract ideas (including mild dysarthria or mild word-find problems)? Yes. EXPRESSION - SCORE: 6-ANIYA SOCIAL INTERACTION: SOCIAL INTERACTION - STEP 1: Does the patient require a helper to interact with others in social and therapeutic situations? No. SOCIAL INTERACTION - STEP 2: Does the patient need extra time in social situations, OR does s/he interact with staff, other patien ts, and family members ONLY in structured environments, OR does s/he require medication for social in teraction? Yes, patient needs extra time SOCIAL INTERACTION - SCORE: 6-ANIYA PROBLEM SOLVING: PROBLEM SOLVING - STEP 1: Does the patient need help from a person or device, or need extra time to solve complex problems such as managing a checking account or confronting interpersonal problems? No. PROBLEM SOLVING - STEP 2: Does the patient require extra time to make decisions or solve problems, OR does s/he have slight dif ficulty reading, initiating, or self-correcting in unfamiliar situations? Yes, patient needs extra ti me. PROBLEM SOLVING - SCORE: 6-ANIYA MEMORY: MEMORY - STEP 1: Does the patient need help from a person or device, or need extra time to remember frequently encount ered people, daily routines, and executing requests? No. MEMORY - STEP 2: Does the patient have slight difficulty recognizing frequently encountered people, daily routines, or executing requests without the need for repetition or using self-initiated or environmental cues to remember? Yes. MEMORY - SCORE: 6-ANIYA
[2018-11-28] MEDS: INSULIN -REGULAR HUMAN 50 UNIT/0.5 ML ML SQ SCH ×4 (07:30→21:00)
[2018-11-28] MEDS: CRANBERRY FRUIT EXTRACT 200 MG CAP PO SCH ×2 (08:30→21:13)
[2018-11-28] MEDS: FE SULF/FA/VIT B COMP & C TAB PO SCH (08:30)
[2018-11-28] MEDS: FERROUS SULFATE 325 MG TAB PO SCH (08:31)
[2018-11-28] MEDS: APIXABAN 2.5 MG TABLET PO SCH ×2 (08:31→21:13)
[2018-11-28] MEDS: METFORMIN HCL 500 MG TAB PO SCH (08:31)
[2018-11-28] MEDS: CLOPIDOGREL 75 MG TABLET PO SCH (08:31)
[2018-11-28] MEDS: INSULIN GLARGINE 100 UNITS/ML SQ SCH (08:32)
[2018-11-28] MEDS: PROMOD 30 ML DOSE PO SCH ×2 (08:34→21:14)
[2018-11-28] MEDS: INSULIN LISPRO 100 UNIT/1 ML SQ SCH ×3 (08:58→17:16)
--- NOTE | 2018-11-28 15:38 | FAST ---
SHIFT START DATE/TIME: 11/28/2018 07:00 (CDT) SHIFT END DATE/TIME: 11/28/2018 19:00 (CDT) NAME YUMIKO NAVARRO DATE OF : 1950 DATE OF ADMISSION: 11/27/2018 13:29 (CDT) PHONE: AGE: 68 N# [id number] GENDER: Male ENCOUNTER PHYSICIAN: Dr. Dash Hernandez M.D. 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 EATING: EATING - STEP 1: Does the patient require the assistance of a person or device, or need extra time when eating? Yes. EATING - STEP 2: Does the patient require the assistance of a helper? Yes. EATING - STEP 3: Does the patient perform half or more of the eating tasks? Yes. EATING - STEP 4: Does the patient need only supervision, cuing, coaxing OR help to apply an orthosis OR help to cut fo od, open containers, pour liquids, or butter bread? Yes. EATING - SCORE: 5-SUP GROOMING: Comb/brush hair Oral care Wash, rinse, and dry face Wash, rinse, and dry hands GROOMING - STEP 1: Does the patient require the assistance of a person or device, or need extra time when grooming? Yes. GROOMING - STEP 2: Does the patient require the assistance of a helper? Yes. GROOMING - STEP 3: How much assistance does the patient require from the helper? Only prior equipment preparation/set up from the helper GROOMING - SCORE: 5-SUP BATHING: Activity did not occur on this shift BATHING - SCORE: 0-UNK DRESSING - UPPER BODY: T-shirt/pullover shirt (four steps) ARTICLES SCORE Total number of steps: 4 DRESSING - UPPER BODY - STEP 1: Does the patient require help from a person or device, or need extra time when dressing above the tera st? Yes. DRESSING - UPPER BODY - STEP 2: Does the patient require the assistance of a helper? Yes. DRESSING - UPPER BODY - STEP 3: Does the helper touch the patient while dressing? Yes. DRESSING - UPPER BODY - STEP 4: How many of the total steps does the patient complete on his/her own? 3 DRESSING - UPPER BODY - SCORE: 4-MIN DRESSING - LOWER BODY: Slip-on shoe - Left foot (one step) Slip-on shoe - Right foot (one step) Sock - Left foot (one step) Sock - Right foot (one step) Zippered pants (four steps) ARTICLES SCORE Total number of steps: 8 DRESSING - LOWER BODY - STEP 1: Does the patient require help from a person or device, or need extra time when dressing below the tera st? Yes. DRESSING - LOWER BODY - STEP 2: Does the patient require the assistance of a helper? Yes. DRESSING - LOWER BODY - STEP 3: Does the helper touch the patient while dressing? Yes. DRESSING - LOWER BODY - STEP 4: How many of the total steps does the patient complete on his/her own? 0 DRESSING - LOWER BODY - STEP 5: Does patient require total assistance for dressing below the waist such as the helper holding clothin g and performing basically all the activities? No. DRESSING - LOWER BODY - SCORE: 2-MAX TOILETING: TOILETING - STEP 1: Does the patient require the assistance of a person or device, or need extra time with toileting? Yes . TOILETING - STEP 2: Does the patient require the assistance of a helper? Yes. TOILETING - STEP 3: How much assistance does the patient require from the helper? Hands-on assistance from the helper TOILETING - STEP 4: Of the 3 tasks: 1) Adjusting clothing prior to use, 2) Cleansing of perineal area, 3) Adjusting clot alla after use; How many tasks does the patient perform WITHOUT assistance of the helper? Two tasks TOILETING - SCORE: 3-MOD BLADDER MANAGEMENT: BLADDER MANAGEMENT - STEP 1: Does the patient control the bladder completely and intentionally without equipment or devices or med ications, and is always continent? Yes. BLADDER MANAGEMENT - SCORE: 7-IND BLADDER MANAGEMENT - FREQUENCY OF ACCIDENTS: BLADDER MANAGEMENT(FA) - STEP 1: How many accidents has the patient had during the current shift? 0 BOWEL MANAGEMENT: Activity did not occur on this shift BOWEL MANAGEMENT - SCORE: 7-IND BOWEL MANAGEMENT - FREQUENCY OF ACCIDENTS: BOWEL MANAGEMENT(FA) - STEP 1: How many accidents has the patient had during the current shift? 0 TRANSFERS: BED, CHAIR, WHEELCHAIR: TRANSFERS: BED, CHAIR, WHEELCHAIR - STEP 1: Does the patient require assistance of a person or device, or need extra time with bed, chair, or whe elchair transfers? Yes. TRANSFERS: BED, CHAIR, WHEELCHAIR - STEP 2: Does the patient require the assistance of a helper? Yes. TRANSFERS: BED, CHAIR, WHEELCHAIR - STEP 3: How much assistance does the patient require from the helper? Steadying/guiding assistance TRANSFERS: BED, CHAIR, WHEELCHAIR - SCORE: 4-MIN TRANSFERS: TOILET: TRANSFERS: TOILET - STEP 1: Does the patient require the assistance of a person or device, or need extra time with toilet transfe rs? Yes. TRANSFERS: TOILET - STEP 2: Does the patient require the assistance of a helper? Yes. TRANSFERS: TOILET - STEP 3: How much assistance does the patient require from the helper? Patient performs half or more of the tr ansferring tasks TRANSFERS: TOILET - STEP 4: Does the patient need only incidental help such as contact guard or steadying during toilet transfer? Yes. TRANSFERS: TOILET - SCORE: 4-MIN TRANSFERS: SHOWER: Activity did not occur on this shift TRANSFERS: SHOWER - SCORE: 0-UNK TRANSFERS: TUB: Activity did not occur on this shift TRANSFERS: TUB - SCORE: 0-UNK LOCOMOTION: WALK: Activity did not occur on this shift LOCOMOTION: WALK - SCORE: 0-UNK LOCOMOTION: WHEELCHAIR: LOCOMOTION: WHEELCHAIR - STEP 1: Does the patient need help to go 150 feet in a wheelchair? Yes. LOCOMOTION: WHEELCHAIR - STEP 2: How much assistance does the patient need from the helper? More than incidental help LOCOMOTION: WHEELCHAIR - SCORE: 3-MOD COMPREHENSION: COMPREHENSION: TYPE: Both COMPREHENSION - STEP 1: Does the patient require help from a person or device, or need extra time to understand complex and a bstract ideas (such as current events, finances, discharge planning, medical issues, relationships, e tc)? Yes. COMPREHENSION - STEP 2: Does the patient require help to understand questions or statements about basic needs or ideas (such as hunger, thirst, sleep, safety, daily schedule, room location, or discomfort) half or more of the t krishan? No. COMPREHENSION - STEP 3: How often does the patient need help to understand directions and conversation about basic needs? 10% - 24% of the time COMPREHENSION - SCORE: 4-MIN EXPRESSION EXPRESSION: TYPE: Both EXPRESSION - STEP 1: Does the patient require help from a person or device, or need extra time expressing complex and abst ract ideas (such as current events, finances, discharge planning, medical issues, relationships, etc) ? Yes. EXPRESSION - STEP 2: Does the patient require help to express basic necessities or ideas (such as hunger, thirst, sleep, s afety, daily schedule, room location, or discomfort) half or more of the time? No. EXPRESSION - STEP 3: How often does the patient need help to express directions and conversation about basic needs? Less t salazar 10% of the time EXPRESSION - SCORE: 5-SUP SOCIAL INTERACTION: SOCIAL INTERACTION - STEP 1: Does the patient require a helper to interact with others in social and therapeutic situations? Yes. SOCIAL INTERACTION - STEP 2: Does the patient interact appropriately half or more of the time? Yes. SOCIAL INTERACTION - STEP 3: How often does the patient need help to interact appropriately? Less than 10% of the time SOCIAL INTERACTION - SCORE: 5-SUP PROBLEM SOLVING: PROBLEM SOLVING - STEP 1: Does the patient need help from a person or device, or need extra time to solve complex problems such as managing a checking account or confronting interpersonal problems? Yes. PROBLEM SOLVING - STEP 2: Does the patient solve basic routine problems half or more of the time? Yes. PROBLEM SOLVING - STEP 3: How often does the patient need help to solve basic routine problems? Less than 10% of the time PROBLEM SOLVING - SCORE: 5-SUP MEMORY: MEMORY - STEP 1: Does the patient need help from a person or device, or need extra time to remember frequently encount ered people, daily routines, and executing requests? Yes. MEMORY - STEP 2: How often does the patient need help to remember frequently encountered people, daily routines, and e xecuting requests? Less than 10% of the time MEMORY - SCORE: 5-SUP SIGNATURE PANEL: The following modified sections: Eating - Score, Grooming - Score, Bathing - Score, Dressing - Upper Body - Score, Dressing - Lower Body - Score, Toileting - Score, Bladder Management - Score, Bowel Man agement - Score, Transfers: Bed, Chair, Wheelchair - Score, Transfers: Toilet - Score, Transfers: Cammie wer - Score, Transfers: Tub - Score, Locomotion: Walk - Score, Locomotion: Wheelchair - Score, Compre hension - Score, Expression - Score, Social Interaction - Score, Problem Solving - Score, Memory - Sc ore were [electronically] signed by Cecilia Hernandez RN on Sat Nov 28 2018 15:37:34 GMT-0500 ([facility] Day[facility] Time)
[2018-11-28] MEDS: ATORVASTATIN 80 MG TAB PO SCH (21:13)
--- NOTE | 2018-11-29 01:18 | FAST ---
SHIFT START DATE/TIME: 11/28/2018 19:00 (CDT) SHIFT END DATE/TIME: 11/29/2018 07:00 (CDT) NAME YUMIKO NAVARRO DATE OF : 1950 DATE OF ADMISSION: 11/27/2018 13:29 (CDT) PHONE: AGE: 68 N# [id number] GENDER: Male ENCOUNTER PHYSICIAN: Dr. Dash Hernandez M.D. 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 EATING: Activity did not occur on this shift EATING - SCORE: 0-UNK GROOMING: Activity did not occur on this shift GROOMING - SCORE: 0-UNK BATHING: Activity did not occur on this shift BATHING - SCORE: 0-UNK DRESSING - UPPER BODY: Patient is not dressing in public clothing ARTICLES SCORE Total number of steps: 0 DRESSING - UPPER BODY - SCORE: 0-UNK DRESSING - LOWER BODY: Patient is not dressing in public clothing ARTICLES SCORE Total number of steps: 0 DRESSING - LOWER BODY - SCORE: 0-UNK TOILETING: TOILETING - STEP 1: Does the patient require the assistance of a person or device, or need extra time with toileting? Yes . TOILETING - STEP 2: Does the patient require the assistance of a helper? Yes. TOILETING - STEP 3: How much assistance does the patient require from the helper? Only supervision TOILETING - SCORE: 5-SUP BLADDER MANAGEMENT: BLADDER MANAGEMENT - STEP 1: Does the patient control the bladder completely and intentionally without equipment or devices or med ications, and is always continent? No. BLADDER MANAGEMENT - STEP 2: Does the patient require the assistance of a helper? No, patient requires and independently uses an a ssistive device, such as a urinal, bedpan, bedside commode, catheter, absorbent pad, or collecting de vice BLADDER MANAGEMENT - SCORE: 6-ANIYA BOWEL MANAGEMENT: Activity did not occur on this shift BOWEL MANAGEMENT - SCORE: 7-IND TRANSFERS: BED, CHAIR, WHEELCHAIR: TRANSFERS: BED, CHAIR, WHEELCHAIR - STEP 1: Does the patient require assistance of a person or device, or need extra time with bed, chair, or whe elchair transfers? Yes. TRANSFERS: BED, CHAIR, WHEELCHAIR - STEP 2: Does the patient require the assistance of a helper? Yes. TRANSFERS: BED, CHAIR, WHEELCHAIR - STEP 3: How much assistance does the patient require from the helper? Steadying/guiding assistance TRANSFERS: BED, CHAIR, WHEELCHAIR - SCORE: 4-MIN TRANSFERS: TOILET: Activity did not occur on this shift TRANSFERS: TOILET - SCORE: 0-UNK TRANSFERS: SHOWER: Activity did not occur on this shift TRANSFERS: SHOWER - SCORE: 0-UNK TRANSFERS: TUB: Activity did not occur on this shift TRANSFERS: TUB - SCORE: 0-UNK LOCOMOTION: WALK: Activity did not occur on this shift LOCOMOTION: WALK - SCORE: 0-UNK LOCOMOTION: WHEELCHAIR: Activity did not occur on this shift LOCOMOTION: WHEELCHAIR - SCORE: 0-UNK COMPREHENSION: COMPREHENSION: TYPE: Both COMPREHENSION - STEP 1: Does the patient require help from a person or device, or need extra time to understand complex and a bstract ideas (such as current events, finances, discharge planning, medical issues, relationships, e tc)? No. COMPREHENSION - STEP 2: Does the patient need extra time, require an assistive device (such as glasses for visual comprehensi on or a hearing aid for auditory comprehension) or does s/he have mild difficulty understanding compl ex and abstract information? Yes. COMPREHENSION - SCORE: 6-ANIYA EXPRESSION EXPRESSION: TYPE: Both EXPRESSION - STEP 1: Does the patient require help from a person or device, or need extra time expressing complex and abst ract ideas (such as current events, finances, discharge planning, medical issues, relationships, etc) ? No. EXPRESSION - STEP 2: Does the patient need extra time, require an assistive device (such as augmentive communication syste m or a communication board), OR does s/he have mild difficulty expressing complex and abstract ideas (including mild dysarthria or mild word-find problems)? No. EXPRESSION - SCORE: 7-IND SOCIAL INTERACTION: SOCIAL INTERACTION - STEP 1: Does the patient require a helper to interact with others in social and therapeutic situations? No. SOCIAL INTERACTION - STEP 2: Does the patient need extra time in social situations, OR does s/he interact with staff, other patien ts, and family members ONLY in structured environments, OR does s/he require medication for social in teraction? Yes, patient needs extra time SOCIAL INTERACTION - SCORE: 6-ANIYA PROBLEM SOLVING: PROBLEM SOLVING - STEP 1: Does the patient need help from a person or device, or need extra time to solve complex problems such as managing a checking account or confronting interpersonal problems? Yes. PROBLEM SOLVING - STEP 2: Does the patient solve basic routine problems half or more of the time? Yes. PROBLEM SOLVING - STEP 3: How often does the patient need help to solve basic routine problems? Less than 10% of the time PROBLEM SOLVING - SCORE: 5-SUP MEMORY: MEMORY - STEP 1: Does the patient need help from a person or device, or need extra time to remember frequently encount ered people, daily routines, and executing requests? No. MEMORY - STEP 2: Does the patient have slight difficulty recognizing frequently encountered people, daily routines, or executing requests without the need for repetition or using self-initiated or environmental cues to remember? Yes. MEMORY - SCORE: 6-ANIYA SIGNATURE PANEL: The following modified sections: Eating - Score, Grooming - Score, Dressing - Upper Body - Score, Florentin ssing - Lower Body - Score, Toileting - Score, Bladder Management - Score, Bowel Management - Score, Transfers: Bed, Chair, Wheelchair - Score, Transfers: Toilet - Score, Transfers: Shower - Score, Gamble sfers: Tub - Score, Locomotion: Walk - Score, Locomotion: Wheelchair - Score, Comprehension - Score, Expression - Score, Social Interaction - Score, Problem Solving - Score, Memory - Score were [electro nically] signed by Edilma Shah CNA on FriNov 29 2018 01:16:53 T-0500 ([facility] Day[facility] Time)
[2018-11-29] MEDS: INSULIN -REGULAR HUMAN 50 UNIT/0.5 ML ML SQ SCH ×4 (07:03→21:00)
[2018-11-29] MEDS: FE SULF/FA/VIT B COMP & C TAB PO SCH (08:19)
[2018-11-29] MEDS: METFORMIN HCL 500 MG TAB PO SCH (08:19)
[2018-11-29] MEDS: CLOPIDOGREL 75 MG TABLET PO SCH (08:19)
[2018-11-29] MEDS: INSULIN LISPRO 100 UNIT/1 ML SQ SCH ×3 (08:20→17:03)
[2018-11-29] MEDS: APIXABAN 2.5 MG TABLET PO SCH ×2 (08:20→21:07)
[2018-11-29] MEDS: FERROUS SULFATE 325 MG TAB PO SCH (08:20)
[2018-11-29] MEDS: INSULIN GLARGINE 100 UNITS/ML SQ SCH (08:20)
[2018-11-29] MEDS: PROMOD 30 ML DOSE PO SCH ×2 (08:21→21:07)
[2018-11-29] MEDS: CRANBERRY FRUIT EXTRACT 200 MG CAP PO SCH ×2 (12:20→21:07)
--- NOTE | 2018-11-29 15:37 | FAST ---
SHIFT START DATE/TIME: 11/29/2018 07:00 (CDT) SHIFT END DATE/TIME: 11/29/2018 19:00 (CDT) NAME YUMIKO NAVARRO DATE OF : 1950 DATE OF ADMISSION: 11/27/2018 13:29 (CDT) PHONE: AGE: 68 N# [id number] GENDER: Male ENCOUNTER PHYSICIAN: Dr. Dash Hernandez M.D. 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 EATING: EATING - STEP 1: Does the patient require the assistance of a person or device, or need extra time when eating? Yes. EATING - STEP 2: Does the patient require the assistance of a helper? Yes. EATING - STEP 3: Does the patient perform half or more of the eating tasks? Yes. EATING - STEP 4: Does the patient need only supervision, cuing, coaxing OR help to apply an orthosis OR help to cut fo od, open containers, pour liquids, or butter bread? Yes. EATING - SCORE: 5-SUP GROOMING: Oral care Wash, rinse, and dry face GROOMING - STEP 1: Does the patient require the assistance of a person or device, or need extra time when grooming? Yes. GROOMING - STEP 2: Does the patient require the assistance of a helper? Yes. GROOMING - STEP 3: How much assistance does the patient require from the helper? Only prior equipment preparation/set up from the helper GROOMING - SCORE: 5-SUP BATHING: Activity did not occur on this shift BATHING - SCORE: 0-UNK DRESSING - UPPER BODY: Activity did not occur on this shift ARTICLES SCORE Total number of steps: 0 DRESSING - UPPER BODY - SCORE: 0-UNK DRESSING - LOWER BODY: Activity did not occur on this shift ARTICLES SCORE Total number of steps: 0 DRESSING - LOWER BODY - SCORE: 0-UNK TOILETING: TOILETING - STEP 1: Does the patient require the assistance of a person or device, or need extra time with toileting? Yes . TOILETING - STEP 2: Does the patient require the assistance of a helper? Yes. TOILETING - STEP 3: How much assistance does the patient require from the helper? Hands-on assistance from the helper TOILETING - STEP 4: Of the 3 tasks: 1) Adjusting clothing prior to use, 2) Cleansing of perineal area, 3) Adjusting clot alla after use; How many tasks does the patient perform WITHOUT assistance of the helper? Three tasks with steadying assistance from the helper TOILETING - SCORE: 4-MIN BLADDER MANAGEMENT: BLADDER MANAGEMENT - STEP 1: Does the patient control the bladder completely and intentionally without equipment or devices or med ications, and is always continent? No. BLADDER MANAGEMENT - STEP 2: Does the patient require the assistance of a helper? No, patient requires and independently uses an a ssistive device, such as a urinal, bedpan, bedside commode, catheter, absorbent pad, or collecting de vice BLADDER MANAGEMENT - SCORE: 6-ANIYA BLADDER MANAGEMENT - FREQUENCY OF ACCIDENTS: BLADDER MANAGEMENT(FA) - STEP 1: How many accidents has the patient had during the current shift? 0 BOWEL MANAGEMENT: BOWEL MANAGEMENT - STEP 1: Does the patient control bowels completely and intentionally without equipment devices or medications AND is always continent? No. BOWEL MANAGEMENT - STEP 2: Does the patient require the assistance of a helper? No, patient requires medication for control such as stool softeners, suppositories, laxatives, enemas, or OTC medications BOWEL MANAGEMENT - SCORE: 6-ANIYA BOWEL MANAGEMENT - FREQUENCY OF ACCIDENTS: BOWEL MANAGEMENT(FA) - STEP 1: How many accidents has the patient had during the current shift? 0 TRANSFERS: BED, CHAIR, WHEELCHAIR: TRANSFERS: BED, CHAIR, WHEELCHAIR - STEP 1: Does the patient require assistance of a person or device, or need extra time with bed, chair, or whe elchair transfers? Yes. TRANSFERS: BED, CHAIR, WHEELCHAIR - STEP 2: Does the patient require the assistance of a helper? No. Patient only requires an assistive device fo r bed, chair, wheelchair transfers such as a sliding board, grab bar, or brace, OR s/he takes more th an reasonable time, OR there is a safety concern when s/he performs the transfers TRANSFERS: BED, CHAIR, WHEELCHAIR - SCORE: 6-ANIYA TRANSFERS: TOILET: TRANSFERS: TOILET - STEP 1: Does the patient require the assistance of a person or device, or need extra time with toilet transfe rs? Yes. TRANSFERS: TOILET - STEP 2: Does the patient require the assistance of a helper? No. Patient only requires an assistive device winslow ch as a grab bar or special seat, OR s/he takes more than reasonable time to perform toilet transfers , OR there is a safety concern when s/he performs toilet transfers. TRANSFERS: TOILET - SCORE: 6-ANIYA TRANSFERS: SHOWER: Activity did not occur on this shift TRANSFERS: SHOWER - SCORE: 0-UNK TRANSFERS: TUB: Activity did not occur on this shift TRANSFERS: TUB - SCORE: 0-UNK LOCOMOTION: WALK: Activity did not occur on this shift LOCOMOTION: WALK - SCORE: 0-UNK LOCOMOTION: WHEELCHAIR: LOCOMOTION: WHEELCHAIR - STEP 1: Does the patient need help to go 150 feet in a wheelchair? Yes. LOCOMOTION: WHEELCHAIR - STEP 2: How much assistance does the patient need from the helper? Only supervision, cuing, or coaxing LOCOMOTION: WHEELCHAIR - SCORE: 5-SUP COMPREHENSION: COMPREHENSION: TYPE: Both COMPREHENSION - STEP 1: Does the patient require help from a person or device, or need extra time to understand complex and a bstract ideas (such as current events, finances, discharge planning, medical issues, relationships, e tc)? No. COMPREHENSION - STEP 2: Does the patient need extra time, require an assistive device (such as glasses for visual comprehensi on or a hearing aid for auditory comprehension) or does s/he have mild difficulty understanding compl ex and abstract information? No. COMPREHENSION - SCORE: 7-IND EXPRESSION EXPRESSION: TYPE: Both EXPRESSION - STEP 1: Does the patient require help from a person or device, or need extra time expressing complex and abst ract ideas (such as current events, finances, discharge planning, medical issues, relationships, etc) ? No. EXPRESSION - STEP 2: Does the patient need extra time, require an assistive device (such as augmentive communication syste m or a communication board), OR does s/he have mild difficulty expressing complex and abstract ideas (including mild dysarthria or mild word-find problems)? No. EXPRESSION - SCORE: 7-IND SOCIAL INTERACTION: SOCIAL INTERACTION - STEP 1: Does the patient require a helper to interact with others in social and therapeutic situations? No. SOCIAL INTERACTION - STEP 2: Does the patient need extra time in social situations, OR does s/he interact with staff, other patien ts, and family members ONLY in structured environments, OR does s/he require medication for social in teraction? No. SOCIAL INTERACTION - SCORE: 7-IND PROBLEM SOLVING: PROBLEM SOLVING - STEP 1: Does the patient need help from a person or device, or need extra time to solve complex problems such as managing a checking account or confronting interpersonal problems? No. PROBLEM SOLVING - STEP 2: Does the patient require extra time to make decisions or solve problems, OR does s/he have slight dif ficulty reading, initiating, or self-correcting in unfamiliar situations? No. PROBLEM SOLVING - SCORE: 7-IND MEMORY: MEMORY - STEP 1: Does the patient need help from a person or device, or need extra time to remember frequently encount ered people, daily routines, and executing requests? No. MEMORY - STEP 2: Does the patient have slight difficulty recognizing frequently encountered people, daily routines, or executing requests without the need for repetition or using self-initiated or environmental cues to remember? No. MEMORY - SCORE: 7-IND SIGNATURE PANEL: The following modified sections: Eating - Score, Grooming - Score, Bathing - Score, Dressing - Upper Body - Score, Dressing - Lower Body - Score, Toileting - Score, Bladder Management - Score, Bowel Man agement - Score, Transfers: Bed, Chair, Wheelchair - Score, Transfers: Toilet - Score, Transfers: Cammie wer - Score, Transfers: Tub - Score, Locomotion: Walk - Score, Locomotion: Wheelchair - Score, Compre hension - Score, Expression - Score, Social Interaction - Score, Problem Solving - Score, Memory - Sc ore were [electronically] signed by Cecilia Hernandez RN on FriNov 29 2018 15:36:34 T[facility]0500 [facility]
[2018-11-29] MEDS: HYDROCODONE/APAP 5/325 MG TAB PO PRN (21:06)
[2018-11-29] MEDS: ATORVASTATIN 80 MG TAB PO SCH (21:06)
[2018-11-29] MEDS: DOCUSATE NA/SENNA CONC 1 TAB PO PRN (21:07)
[2018-11-30] MEDS: INSULIN -REGULAR HUMAN 50 UNIT/0.5 ML ML SQ SCH ×4 (07:30→20:09)
[2018-11-30] MEDS: PROMOD 30 ML DOSE PO SCH ×2 (08:00→19:54)
[2018-11-30] MEDS: INSULIN LISPRO 100 UNIT/1 ML SQ SCH ×3 (08:03→17:00)
[2018-11-30] MEDS: FE SULF/FA/VIT B COMP & C TAB PO SCH (08:04)
[2018-11-30] MEDS: METFORMIN HCL 500 MG TAB PO SCH (08:04)
[2018-11-30] MEDS: CRANBERRY FRUIT EXTRACT 200 MG CAP PO SCH ×2 (08:04→19:55)
[2018-11-30] MEDS: CLOPIDOGREL 75 MG TABLET PO SCH (08:04)
[2018-11-30] MEDS: FERROUS SULFATE 325 MG TAB PO SCH (08:04)
[2018-11-30] MEDS: INSULIN GLARGINE 100 UNITS/ML SQ SCH (08:04)
[2018-11-30] MEDS: HYDROCODONE/APAP 5/325 MG TAB PO PRN (08:05)
[2018-11-30] MEDS: APIXABAN 2.5 MG TABLET PO SCH ×2 (08:05→19:55)
--- NOTE | 2018-11-30 11:19 | FAST ---
SHIFT START DATE/TIME: 11/30/2018 07:00 (CDT) SHIFT END DATE/TIME: 11/30/2018 19:00 (CDT) NAME YUMIKO NAVARRO DATE OF : 1950 DATE OF ADMISSION: 11/27/2018 13:29 (CDT) PHONE: AGE: 68 N# [id number] GENDER: Male ENCOUNTER PHYSICIAN: Dr. Dash Hernandez M.D. 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 EATING: EATING - STEP 1: Does the patient require the assistance of a person or device, or need extra time when eating? Yes. EATING - STEP 2: Does the patient require the assistance of a helper? Yes. EATING - STEP 3: Does the patient perform half or more of the eating tasks? Yes. EATING - STEP 4: Does the patient need only supervision, cuing, coaxing OR help to apply an orthosis OR help to cut fo od, open containers, pour liquids, or butter bread? Yes. EATING - SCORE: 5-SUP GROOMING: Comb/brush hair Oral care Wash, rinse, and dry face Wash, rinse, and dry hands GROOMING - STEP 1: Does the patient require the assistance of a person or device, or need extra time when grooming? Yes. GROOMING - STEP 2: Does the patient require the assistance of a helper? Yes. GROOMING - STEP 3: How much assistance does the patient require from the helper? Only prior equipment preparation/set up from the helper GROOMING - SCORE: 5-SUP BATHING: Activity did not occur on this shift BATHING - SCORE: 0-UNK DRESSING - UPPER BODY: Activity did not occur on this shift ARTICLES SCORE Total number of steps: 0 DRESSING - UPPER BODY - SCORE: 0-UNK DRESSING - LOWER BODY: Activity did not occur on this shift ARTICLES SCORE Total number of steps: 0 DRESSING - LOWER BODY - SCORE: 0-UNK TOILETING: TOILETING - STEP 1: Does the patient require the assistance of a person or device, or need extra time with toileting? Yes . TOILETING - STEP 2: Does the patient require the assistance of a helper? Yes. TOILETING - STEP 3: How much assistance does the patient require from the helper? Hands-on assistance from the helper TOILETING - STEP 4: Of the 3 tasks: 1) Adjusting clothing prior to use, 2) Cleansing of perineal area, 3) Adjusting clot alla after use; How many tasks does the patient perform WITHOUT assistance of the helper? Three tasks with steadying assistance from the helper TOILETING - SCORE: 4-MIN BLADDER MANAGEMENT: BLADDER MANAGEMENT - STEP 1: Does the patient control the bladder completely and intentionally without equipment or devices or med ications, and is always continent? No. BLADDER MANAGEMENT - STEP 2: Does the patient require the assistance of a helper? No, patient requires and independently uses an a ssistive device, such as a urinal, bedpan, bedside commode, catheter, absorbent pad, or collecting de vice BLADDER MANAGEMENT - SCORE: 6-ANIYA BOWEL MANAGEMENT: BOWEL MANAGEMENT - STEP 1: Does the patient control bowels completely and intentionally without equipment devices or medications AND is always continent? Yes. BOWEL MANAGEMENT - SCORE: 7-IND TRANSFERS: BED, CHAIR, WHEELCHAIR: TRANSFERS: BED, CHAIR, WHEELCHAIR - STEP 1: Does the patient require assistance of a person or device, or need extra time with bed, chair, or whe elchair transfers? Yes. TRANSFERS: BED, CHAIR, WHEELCHAIR - STEP 2: Does the patient require the assistance of a helper? Yes. TRANSFERS: BED, CHAIR, WHEELCHAIR - STEP 3: How much assistance does the patient require from the helper? Steadying/guiding assistance TRANSFERS: BED, CHAIR, WHEELCHAIR - SCORE: 4-MIN TRANSFERS: TOILET: TRANSFERS: TOILET - STEP 1: Does the patient require the assistance of a person or device, or need extra time with toilet transfe rs? Yes. TRANSFERS: TOILET - STEP 2: Does the patient require the assistance of a helper? Yes. TRANSFERS: TOILET - STEP 3: How much assistance does the patient require from the helper? Patient performs half or more of the tr ansferring tasks TRANSFERS: TOILET - STEP 4: Does the patient need only incidental help such as contact guard or steadying during toilet transfer? Yes. TRANSFERS: TOILET - SCORE: 4-MIN TRANSFERS: SHOWER: Activity did not occur on this shift TRANSFERS: SHOWER - SCORE: 0-UNK TRANSFERS: TUB: Activity did not occur on this shift TRANSFERS: TUB - SCORE: 0-UNK LOCOMOTION: WALK: Activity did not occur on this shift LOCOMOTION: WALK - SCORE: 0-UNK LOCOMOTION: WHEELCHAIR: Activity did not occur on this shift LOCOMOTION: WHEELCHAIR - SCORE: 0-UNK COMPREHENSION: COMPREHENSION: TYPE: Both COMPREHENSION - STEP 1: Does the patient require help from a person or device, or need extra time to understand complex and a bstract ideas (such as current events, finances, discharge planning, medical issues, relationships, e tc)? No. COMPREHENSION - STEP 2: Does the patient need extra time, require an assistive device (such as glasses for visual comprehensi on or a hearing aid for auditory comprehension) or does s/he have mild difficulty understanding compl ex and abstract information? No. COMPREHENSION - SCORE: 7-IND EXPRESSION EXPRESSION: TYPE: Both EXPRESSION - STEP 1: Does the patient require help from a person or device, or need extra time expressing complex and abst ract ideas (such as current events, finances, discharge planning, medical issues, relationships, etc) ? No. EXPRESSION - STEP 2: Does the patient need extra time, require an assistive device (such as augmentive communication syste m or a communication board), OR does s/he have mild difficulty expressing complex and abstract ideas (including mild dysarthria or mild word-find problems)? Yes. EXPRESSION - SCORE: 6-ANIYA SOCIAL INTERACTION: SOCIAL INTERACTION - STEP 1: Does the patient require a helper to interact with others in social and therapeutic situations? No. SOCIAL INTERACTION - STEP 2: Does the patient need extra time in social situations, OR does s/he interact with staff, other patien ts, and family members ONLY in structured environments, OR does s/he require medication for social in teraction? Yes, patient needs extra time SOCIAL INTERACTION - SCORE: 6-ANIYA PROBLEM SOLVING: PROBLEM SOLVING - STEP 1: Does the patient need help from a person or device, or need extra time to solve complex problems such as managing a checking account or confronting interpersonal problems? No. PROBLEM SOLVING - STEP 2: Does the patient require extra time to make decisions or solve problems, OR does s/he have slight dif ficulty reading, initiating, or self-correcting in unfamiliar situations? Yes, patient needs extra ti me. PROBLEM SOLVING - SCORE: 6-ANIYA MEMORY: MEMORY - STEP 1: Does the patient need help from a person or device, or need extra time to remember frequently encount ered people, daily routines, and executing requests? No. MEMORY - STEP 2: Does the patient have slight difficulty recognizing frequently encountered people, daily routines, or executing requests without the need for repetition or using self-initiated or environmental cues to remember? Yes. MEMORY - SCORE: 6-ANIYA SIGNATURE PANEL: The following modified sections: Eating - Score, Grooming - Score, Bathing - Score, Dressing - Upper Body - Score, Dressing - Lower Body - Score, Toileting - Score, Bladder Management - Score, Bowel Man agement - Score, Transfers: Bed, Chair, Wheelchair - Score, Transfers: Toilet - Score, Transfers: Cammie wer - Score, Transfers: Tub - Score, Locomotion: Walk - Score, Locomotion: Wheelchair - Score, Compre hension - Score, Expression - Score, Social Interaction - Score, Problem Solving - Score, Memory - Sc ore were [electronically] signed by Vance Pacheco on FriNov 30 2018 11:18:30 GMT-0500 (Central Daylight Time)
--- NOTE | 2018-11-30 17:43 | P.HP ---
Certification for Inpatient Patient admitted to: Inpatient With expected LOS: >2 Midnights Practitioner: I am a practitioner with admitting privileges, knowledge of patient current condition, hospital course, and medical plan of care. Services: Services provided to patient in accordance with Admission requirements found in Title 42 Section 412.3 of the Code of Federal Regulations Patient History Date of Service: 11/30/18 Reason for admission: RIGHT FOOT AMPUTATION. History of Present Illness: MR. NAVARRO HAS DIABETES AND IS A HEAVY SMOKER ALSO. HE HAD UNHEALED R FOOT ULCER AND HAS BEEN TO [facility] WHERE DISTAL FOOT AMPUTATION IS DONE. HE ALSO HAD VASCULAR SURGERY FOR R LEG THERE. HE IS NOW HERE FOR REHAB. Allergies No Known Allergies Allergy (Unverified 11/26/18 19:12) Home Medications: Atorvastatin Calcium [Lipitor] 80 mg PO BEDTIME 11/26/18 Clopidogrel Bisulfate [Plavix] 75 mg PO DAILY 11/26/18 Insulin Aspart [Novolog] 4 unit SQ TIDWM 11/26/18 Insulin Glargine,Hum.rec.anlog [Lantus] 20 unit SQ DAILY 11/26/18 Metformin HCl 500 mg PO BIDWM 11/26/18 - Past Medical/Surgical History Has patient received pneumonia vaccine in the past: No Diabetic: Yes -: DM -: HTN -: Hyperlipidemia -: COPD -: aortic stenosis -: Smoker -: bypass -: foot amputation -: L hand carpal tunnel surgery - Family History Father -: Heart disease, Hypertension Mother -: Hypertension, Diabetes Brother -: Hypertension, Diabetes Sister -: Hypertension, Diabetes - Social History Smoking Status: Current every day smoker Alcohol use: No CD- Drugs: No Caffeine use: Yes Place of Residence: Home Review of Systems 10-point ROS is otherwise unremarkable Physical Examination - Vital Signs Temperature: 97.7 F Blood Pressure: 131/54 Pulse: 61 Respirations: 16 Pulse Ox (%): 98 - Physical Exam General: Alert, In no apparent distress HEENT: Atraumatic, PERRLA, Mucous membr. moist/pink, EOMI, Sclerae nonicteric Neck: Supple, 2+ carotid pulse no bruit, No LAD, Without JVD or thyroid abnormality Respiratory: Clear to auscultation bilaterally, Normal air movement Cardiovascular: Regular rate/rhythm, Normal S1 S2 Gastrointestinal: Normal bowel sounds, No tenderness Musculoskeletal: No tenderness, Other (R FOOT DISTAL AMPUTATION.) Integumentary: No rashes Neurological: Normal gait, Normal speech, Normal strength at 5/5 x4 extr, Normal tone, Normal affect Lymphatics: No axilla or inguinal lymphadenopathy Assessment and Plan - Problems (Diagnosis) (1) PVD (peripheral vascular disease) Current Visit: Yes Status: Acute Plan: SP FOREFOOT AMPUTATION. STABLE. PT NOW. (2) Nontraumatic amputation of right foot Current Visit: Yes Status: Acute Plan: ABOVE. HP. (3) Diabetes Current Visit: Yes Status: Chronic Plan: DIABETES- STABLE BUT WITH SMOKING HE WILL GET COMPLICATIONS. HE WAS AWARE OF RISKS BEFORE. RESUME MEDS CHECK A1C AND LDL. Qualifiers: Diabetes mellitus type: type 2 Diabetes mellitus complication status: with circulatory complication Diabetes mellitus complication detail: with peripheral angiopathy with gangrene - Advance Directives Does patient have a Living Will: No Does patient have a Durable POA for Healthcare: No
[2018-11-30] MEDS: ATORVASTATIN 80 MG TAB PO SCH (19:59)
[2018-11-30 21:35] LABS: UR MICROALBUMIN 2.1 mg/dL (< 1.9)
--- NOTE | 2018-12-01 02:11 | FAST ---
SHIFT START DATE/TIME: 11/30/2018 19:00 (CDT) SHIFT END DATE/TIME: 12/01/2018 07:00 (CDT) NAME YUMIKO NAVARRO DATE OF : 1950 DATE OF ADMISSION: 11/27/2018 13:29 (CDT) PHONE: AGE: 68 N# [id number] GENDER: Male ENCOUNTER PHYSICIAN: Dr. Dash Hernandez M.D. 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 EATING: Activity did not occur on this shift EATING - SCORE: 0-UNK GROOMING: Activity did not occur on this shift GROOMING - SCORE: 0-UNK BATHING: Activity did not occur on this shift BATHING - SCORE: 0-UNK DRESSING - UPPER BODY: Activity did not occur on this shift ARTICLES SCORE Total number of steps: 0 DRESSING - UPPER BODY - SCORE: 0-UNK DRESSING - LOWER BODY: Activity did not occur on this shift ARTICLES SCORE Total number of steps: 0 DRESSING - LOWER BODY - SCORE: 0-UNK TOILETING: TOILETING - STEP 1: Does the patient require the assistance of a person or device, or need extra time with toileting? Yes . TOILETING - STEP 2: Does the patient require the assistance of a helper? Yes. TOILETING - STEP 3: How much assistance does the patient require from the helper? Hands-on assistance from the helper TOILETING - STEP 4: Of the 3 tasks: 1) Adjusting clothing prior to use, 2) Cleansing of perineal area, 3) Adjusting clot alla after use; How many tasks does the patient perform WITHOUT assistance of the helper? Three tasks with steadying assistance from the helper TOILETING - SCORE: 4-MIN BLADDER MANAGEMENT: BLADDER MANAGEMENT - STEP 1: Does the patient control the bladder completely and intentionally without equipment or devices or med ications, and is always continent? Yes. BLADDER MANAGEMENT - SCORE: 7-IND BOWEL MANAGEMENT: Activity did not occur on this shift BOWEL MANAGEMENT - SCORE: 7-IND TRANSFERS: BED, CHAIR, WHEELCHAIR: TRANSFERS: BED, CHAIR, WHEELCHAIR - STEP 1: Does the patient require assistance of a person or device, or need extra time with bed, chair, or whe elchair transfers? Yes. TRANSFERS: BED, CHAIR, WHEELCHAIR - STEP 2: Does the patient require the assistance of a helper? Yes. TRANSFERS: BED, CHAIR, WHEELCHAIR - STEP 3: How much assistance does the patient require from the helper? Steadying/guiding assistance TRANSFERS: BED, CHAIR, WHEELCHAIR - SCORE: 4-MIN TRANSFERS: TOILET: TRANSFERS: TOILET - STEP 1: Does the patient require the assistance of a person or device, or need extra time with toilet transfe rs? Yes. TRANSFERS: TOILET - STEP 2: Does the patient require the assistance of a helper? Yes. TRANSFERS: TOILET - STEP 3: How much assistance does the patient require from the helper? Only supervision, cuing, coaxing, OR he lp to set out transfer equipment or to lock brakes and/or lift foot rests TRANSFERS: TOILET - SCORE: 5-SUP TRANSFERS: SHOWER: Activity did not occur on this shift TRANSFERS: SHOWER - SCORE: 0-UNK TRANSFERS: TUB: Activity did not occur on this shift TRANSFERS: TUB - SCORE: 0-UNK LOCOMOTION: WALK: Activity did not occur on this shift LOCOMOTION: WALK - SCORE: 0-UNK LOCOMOTION: WHEELCHAIR: Activity did not occur on this shift LOCOMOTION: WHEELCHAIR - SCORE: 0-UNK COMPREHENSION: COMPREHENSION: TYPE: Both COMPREHENSION - STEP 1: Does the patient require help from a person or device, or need extra time to understand complex and a bstract ideas (such as current events, finances, discharge planning, medical issues, relationships, e tc)? No. COMPREHENSION - STEP 2: Does the patient need extra time, require an assistive device (such as glasses for visual comprehensi on or a hearing aid for auditory comprehension) or does s/he have mild difficulty understanding compl ex and abstract information? Yes. COMPREHENSION - SCORE: 6-ANIYA EXPRESSION EXPRESSION: TYPE: Both EXPRESSION - STEP 1: Does the patient require help from a person or device, or need extra time expressing complex and abst ract ideas (such as current events, finances, discharge planning, medical issues, relationships, etc) ? No. EXPRESSION - STEP 2: Does the patient need extra time, require an assistive device (such as augmentive communication syste m or a communication board), OR does s/he have mild difficulty expressing complex and abstract ideas (including mild dysarthria or mild word-find problems)? No. EXPRESSION - SCORE: 7-IND SOCIAL INTERACTION: SOCIAL INTERACTION - STEP 1: Does the patient require a helper to interact with others in social and therapeutic situations? No. SOCIAL INTERACTION - STEP 2: Does the patient need extra time in social situations, OR does s/he interact with staff, other patien ts, and family members ONLY in structured environments, OR does s/he require medication for social in teraction? No. SOCIAL INTERACTION - SCORE: 7-IND PROBLEM SOLVING: PROBLEM SOLVING - STEP 1: Does the patient need help from a person or device, or need extra time to solve complex problems such as managing a checking account or confronting interpersonal problems? No. PROBLEM SOLVING - STEP 2: Does the patient require extra time to make decisions or solve problems, OR does s/he have slight dif ficulty reading, initiating, or self-correcting in unfamiliar situations? No. PROBLEM SOLVING - SCORE: 7-IND MEMORY: MEMORY - STEP 1: Does the patient need help from a person or device, or need extra time to remember frequently encount ered people, daily routines, and executing requests? No. MEMORY - STEP 2: Does the patient have slight difficulty recognizing frequently encountered people, daily routines, or executing requests without the need for repetition or using self-initiated or environmental cues to remember? No. MEMORY - SCORE: 7-IND SIGNATURE PANEL: The following modified sections: Eating - Score, Grooming - Score, Bathing - Score, Dressing - Upper Body - Score, Dressing - Lower Body - Score, Toileting - Score, Bladder Management - Score, Bowel Man agement - Score, Transfers: Bed, Chair, Wheelchair - Score, Transfers: Toilet - Score, Transfers: Cammie wer - Score, Transfers: Tub - Score, Locomotion: Walk - Score, Locomotion: Wheelchair - Score, Compre hension - Score, Expression - Score, Social Interaction - Score, Problem Solving - Score, Memory - Sc ore were [electronically] signed by Susan Valdez CNA on FriDec 01 2018 02:09:19 T-0500 ([place] Da ylight Time)
[2018-12-01 06:06] LABS: Absolute Lymphocytes (CBC) 2.7 K/uL (0.7-4.9); Absolute Monocytes 0.9 K/uL (0.1-1.3); Absolute Neutrophil 6.8 K/uL (1.8-8.0); Basophils % 1.2 % (0-1.3); Eosinophils % 4.1 % (0-4.4); Hematocrit 26.4 % (39.6-49.0); Lymphocytes % 24.8 % (15.3-44.8); MPV 6.8 fL (7.6-11.3); Monocytes % 8.4 % (3.3-12.3); RBC Red Blood Cell Count 3.08 M/uL (4.33-5.43)
[2018-12-01 06:11] LABS: BUN Blood Urea Nitrogen 13 mg/dL (7-18); Bicarbonate 30 mmol/L (21-32); Glucose Level 118 mg/dL (74-106); Potassium 4.1 mmol/L (3.5-5.1); Sodium Level 138 mmol/L (136-145)
[2018-12-01] MEDS: INSULIN -REGULAR HUMAN 50 UNIT/0.5 ML ML SQ SCH ×4 (07:25→20:10)
[2018-12-01] MEDS: INSULIN GLARGINE 100 UNITS/ML SQ SCH (07:40)
[2018-12-01] MEDS: INSULIN LISPRO 100 UNIT/1 ML SQ SCH ×3 (07:40→17:01)
[2018-12-01] MEDS ORDERED: MEDIHONEY 44 ML TOPICAL TUBE TOP SCH (08:00)
[2018-12-01] MEDS: HYDROCODONE/APAP 5/325 MG TAB PO PRN ×2 (08:01→12:15)
[2018-12-01] MEDS: CRANBERRY FRUIT EXTRACT 200 MG CAP PO SCH ×2 (08:01→19:57)
[2018-12-01] MEDS: PROMOD 30 ML DOSE PO SCH ×2 (08:02→19:57)
[2018-12-01] MEDS: FE SULF/FA/VIT B COMP & C TAB PO SCH (08:02)
[2018-12-01] MEDS: APIXABAN 2.5 MG TABLET PO SCH ×2 (08:02→19:57)
[2018-12-01] MEDS: FERROUS SULFATE 325 MG TAB PO SCH (08:02)
[2018-12-01] MEDS: CLOPIDOGREL 75 MG TABLET PO SCH (08:02)
[2018-12-01] MEDS: METFORMIN HCL 500 MG TAB PO SCH (08:02)
--- NOTE | 2018-12-01 15:42 | FAST ---
ENCOUNTER DATE AND TIME: 11/30/2018 08:00 (CDT) NAME YUMIKO NAVARRO DATE OF : 1950 DATE OF ADMISSION: 11/26/2018 19:02 (CDT) PHONE: AGE: 68 N# [id number] GENDER: Male ENCOUNTER PHYSICIAN: Dr. Dash Hernandez M.D. 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 EATING: Activity did not occur on this shift EATING - SCORE: 0-UNK GROOMING: Activity did not occur on this shift GROOMING - SCORE: 0-UNK BATHING: Activity did not occur on this shift BATHING - SCORE: 0-UNK DRESSING - UPPER BODY: Activity did not occur on this shift Patient is not dressing in public clothing ARTICLES SCORE Total number of steps: 0 DRESSING - UPPER BODY - SCORE: 0-UNK DRESSING - LOWER BODY: Activity did not occur on this shift Patient is not dressing in public clothing ARTICLES SCORE Total number of steps: 0 DRESSING - LOWER BODY - SCORE: 0-UNK TOILETING: Activity did not occur on this shift TOILETING - SCORE: 0-UNK BLADDER MANAGEMENT: Activity did not occur on this shift BLADDER MANAGEMENT - SCORE: 7-IND BOWEL MANAGEMENT: Activity did not occur on this shift BOWEL MANAGEMENT - SCORE: 7-IND TRANSFERS: BED, CHAIR, WHEELCHAIR: TRANSFERS: BED, CHAIR, WHEELCHAIR - STEP 1: Does the patient require assistance of a person or device, or need extra time with bed, chair, or whe elchair transfers? Yes. TRANSFERS: BED, CHAIR, WHEELCHAIR - STEP 2: Does the patient require the assistance of a helper? Yes. TRANSFERS: BED, CHAIR, WHEELCHAIR - STEP 3: How much assistance does the patient require from the helper? Only supervision TRANSFERS: BED, CHAIR, WHEELCHAIR - SCORE: 5-SUP TRANSFERS: TOILET: Activity did not occur on this shift TRANSFERS: TOILET - SCORE: 0-UNK TRANSFERS: SHOWER: Activity did not occur on this shift TRANSFERS: SHOWER - SCORE: 0-UNK TRANSFERS: TUB: Activity did not occur on this shift TRANSFERS: TUB - SCORE: 0-UNK LOCOMOTION: WALK: LOCOMOTION: WALK - STEP 1: Does the patient need help from a person or device, or need extra time to walk 150 feet? Yes. LOCOMOTION: WALK - STEP 2: How much assistance does the patient require to walk a minimum of 150 feet? Patient walks less than 1 50 feet - but more than 50 feet - with the assistance of only one helper LOCOMOTION: WALK - SCORE: 2-MAX LOCOMOTION: WHEELCHAIR: LOCOMOTION: WHEELCHAIR - STEP 1: Does the patient need help to go 150 feet in a wheelchair? Yes. LOCOMOTION: WHEELCHAIR - STEP 2: How much assistance does the patient need from the helper? Only supervision, cuing, or coaxing LOCOMOTION: WHEELCHAIR - SCORE: 5-SUP LOCOMOTION: STAIRS: Activity did not occur on this shift LOCOMOTION: STAIRS - SCORE: 0-UNK COMPREHENSION: COMPREHENSION - SCORE: 0-UNK EXPRESSION EXPRESSION - SCORE: 0-UNK SOCIAL INTERACTION: SOCIAL INTERACTION - SCORE: 0-UNK PROBLEM SOLVING: PROBLEM SOLVING - SCORE: 0-UNK MEMORY: MEMORY - SCORE: 0-UNK SIGNATURE PANEL: The following modified sections: Transfers: Bed, Chair, Wheelchair - Score, Transfers: Toilet - Score , Locomotion: Walk - Score, Locomotion: Wheelchair - Score, Locomotion: Stairs - Score were [electron adalberto] signed by Jesús Cabrera PTA on FriDec 01 2018 15:41:38 GMT-0500 (Central Daylight Time)
--- NOTE | 2018-12-01 15:51 | FAST ---
ENCOUNTER DATE AND TIME: 12/01/2018 08:00 (CDT) NAME YUMIKO NAVARRO DATE OF : 1950 DATE OF ADMISSION: 11/26/2018 19:02 (CDT) PHONE: AGE: 68 N# [id number] GENDER: Male ENCOUNTER PHYSICIAN: Dr. Dash Hernandez M.D. 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 EATING: Activity did not occur on this shift EATING - SCORE: 0-UNK GROOMING: Activity did not occur on this shift GROOMING - SCORE: 0-UNK BATHING: Activity did not occur on this shift BATHING - SCORE: 0-UNK DRESSING - UPPER BODY: Activity did not occur on this shift Patient is not dressing in public clothing ARTICLES SCORE Total number of steps: 0 DRESSING - UPPER BODY - SCORE: 0-UNK DRESSING - LOWER BODY: Activity did not occur on this shift Patient is not dressing in public clothing ARTICLES SCORE Total number of steps: 0 DRESSING - LOWER BODY - SCORE: 0-UNK TOILETING: Activity did not occur on this shift TOILETING - SCORE: 0-UNK BLADDER MANAGEMENT: Activity did not occur on this shift BLADDER MANAGEMENT - SCORE: 7-IND BOWEL MANAGEMENT: Activity did not occur on this shift BOWEL MANAGEMENT - SCORE: 7-IND TRANSFERS: BED, CHAIR, WHEELCHAIR: TRANSFERS: BED, CHAIR, WHEELCHAIR - STEP 1: Does the patient require assistance of a person or device, or need extra time with bed, chair, or whe elchair transfers? Yes. TRANSFERS: BED, CHAIR, WHEELCHAIR - STEP 2: Does the patient require the assistance of a helper? No. Patient only requires an assistive device fo r bed, chair, wheelchair transfers such as a sliding board, grab bar, or brace, OR s/he takes more th an reasonable time, OR there is a safety concern when s/he performs the transfers TRANSFERS: BED, CHAIR, WHEELCHAIR - SCORE: 6-ANIYA TRANSFERS: TOILET: Activity did not occur on this shift TRANSFERS: TOILET - SCORE: 0-UNK TRANSFERS: SHOWER: Activity did not occur on this shift TRANSFERS: SHOWER - SCORE: 0-UNK TRANSFERS: TUB: Activity did not occur on this shift TRANSFERS: TUB - SCORE: 0-UNK LOCOMOTION: WALK: LOCOMOTION: WALK - STEP 1: Does the patient need help from a person or device, or need extra time to walk 150 feet? Yes. LOCOMOTION: WALK - STEP 2: How much assistance does the patient require to walk a minimum of 150 feet? Only supervision, cuing, or coaxing LOCOMOTION: WALK - SCORE: 5-SUP LOCOMOTION: WHEELCHAIR: LOCOMOTION: WHEELCHAIR - STEP 1: Does the patient need help to go 150 feet in a wheelchair? Yes. LOCOMOTION: WHEELCHAIR - STEP 2: How much assistance does the patient need from the helper? Only supervision, cuing, or coaxing LOCOMOTION: WHEELCHAIR - SCORE: 5-SUP LOCOMOTION: STAIRS: LOCOMOTION: STAIRS - STEP 1: Does the patient need help to go up and down 12 to 14 stairs? Yes. LOCOMOTION: STAIRS - STEP 2: How much assistance does the patient need from the helper to go a minimum of 12 to 14 stairs? The pat ient goes less than 12 stairs, but at least 4 stairs LOCOMOTION: STAIRS - SCORE: 2-MAX COMPREHENSION: COMPREHENSION - SCORE: 0-UNK EXPRESSION EXPRESSION - SCORE: 0-UNK SOCIAL INTERACTION: SOCIAL INTERACTION - SCORE: 0-UNK PROBLEM SOLVING: PROBLEM SOLVING - SCORE: 0-UNK MEMORY: MEMORY - SCORE: 0-UNK SIGNATURE PANEL: The following modified sections: Transfers: Bed, Chair, Wheelchair - Score, Transfers: Toilet - Score , Locomotion: Walk - Score, Locomotion: Wheelchair - Score, Locomotion: Stairs - Score were [chris glover] signed by Jesús Cabrera PTA on FriDec 01 2018 15:46:23 T-0500 (Central Daylight Time)
--- NOTE | 2018-12-01 17:17 | P.PN ---
Subjective Date of Service: 12/01/18 Chief Complaint: RIGHT FOOT AMPUTATION. Subjective: No C/O voiced HE FEELS WELL, HE HAS NO PAIN, NO FEVER OR CHILLS. Review of Systems 10-point ROS is otherwise unremarkable Musculoskeletal: As per HPI Physical Examination - Vital Signs Temperature: 97.2 F Blood Pressure: 118/60 Pulse: 80 Respirations: 16 Pulse Ox (%): 98 - Physical Exam General: Alert, In no apparent distress HEENT: Atraumatic, PERRLA, EOMI Neck: Supple, JVD not distended Respiratory: Clear to auscultation bilaterally, Normal air movement Cardiovascular: Regular rate/rhythm, Normal S1 S2 Gastrointestinal: Normal bowel sounds, No tenderness Musculoskeletal: Other (RIGHT FOOT AMPUTATION SITE- NECROTIC, SOFT FOUL SMELLING WOUND. I USED STERILE Q TUIP TO SEE HOW SOFT AND DEEP IT IS. Q TIP WENT IN EASILY ABOUT HALF CM IN THE MEDIAL SIDE OF THE WOUND WHERE THERE IS INFECTION NOTED. I CULTURED THE WOUND FROM INSIDE AERIOBIC AND ANEROBIC. ) Integumentary: No rashes Neurological: Normal speech, Normal tone, Normal affect Lymphatics: No axilla or inguinal lymphadenopathy - Studies Laboratory Data (last 24 hrs) 12/01/18 05:32: Sodium 138, Potassium 4.1, BUN 13, Creatinine 0.70, Glucose 118 H 12/01/18 05:32: WBC 11.0 H, Hgb 9.2 L, Hct 26.4 L, Plt Count 518 H 11/30/18 18:08: Triglycerides 98, Cholesterol 65, HDL Cholesterol 24 L, Cholesterol/HDL Ratio 2.71 Medications List Reviewed: Yes Assessment And Plan - Current Problems (Diagnosis) (1) PVD (peripheral vascular disease) Current Visit: Yes Status: Acute Plan: SP FOREFOOT AMPUTATION. STABLE. PT NOW. (2) Nontraumatic amputation of right foot Current Visit: Yes Status: Acute Plan: ABOVE. HP. (3) Diabetes Current Visit: Yes Status: Chronic Plan: DIABETES- STABLE BUT WITH SMOKING HE WILL GET COMPLICATIONS. HE WAS AWARE OF RISKS BEFORE. RESUME MEDS CHECK A1C AND LDL. Qualifiers: Diabetes mellitus type: type 2 Diabetes mellitus complication status: with circulatory complication Diabetes mellitus complication detail: with peripheral angiopathy with gangrene (4) Amputation stump infection Current Visit: Yes Status: Acute Plan: IT SEEMS LIKE WOUND IS NOT HEALING AND HAS INFECTION WITH NECROTIC NON HEALING WOUND. HE MAY NEED HIGHER AMPUTATION AT A THIS ULCER MAY NOT HEAL WITH YEARS OF SMOKING AND RELATED PVD. CULTURES HAVE BEEN SENT. GRUPON STARTED. IV. DR. CHRISTA CALDERÓN HAS BEEN CALLED AND LEFT MESSAGE TO CALL BACK. [phone] HE NEEDS TO BE SENT BACK TO [facility].
[2018-12-01] MEDS: PIPER/TAZO/NS 3.375gm 3.375 GM/100 ML BAG IV SCH (18:27)
--- NOTE | 2018-12-01 18:41 | R.PN ---
ENCOUNTER DATE AND TIME: 12/01/2018 18:30 (CDT) NAME YUMIKO NAVARRO DATE OF : 1950 DATE OF ADMISSION: 11/26/2018 19:02 (CDT) SEVERE PERIPHERAL ARTERY DISEASECHIEF COMPLAINT: Severe peripheral arterial disease with osteomyelitis SUBJECTIVE: Pt denied any depression. Pt denied any Shortness of Breath. Ambulated 210' with standby assistance using a rolling walker. Self-propelled wheelchair 250' with st andby assistance. Up and down 5 steps with contact guard assistance. Hgb 9.2, glucose 118 to 237, HA1c 6.8, calcium 8.4. VITAL SIGNS Temperature: 97.2 F SBP/DBP: 118/60 Pulse: 80 Resp: 16 MEDICATION ALLERGIES: No Known Drug Allergies (NKDA) ENVIRONMENTAL ALLERGIES: None Known - Substance Allergies None Known - Other Allergies None Known CONSULT: Perform Consult Certified Prosthetic for prosthesis construction NURSING: - Shower allowing shower - Lab Results blood Sugar Check ACHS PRECAUTIONS: - Weight Bearing Precaution NWB right LE ACTIVITIES OOB only with supervision THERAPIES: - Orthotics/Prosthetics Prosthetic Evaluation. - Occupational Therapy Evaluate and Treat. - Physical Therapy Evaluate and Treat. PHYSICAL EXAM - Gen Alert and awake Lying in bed No apparent distress Oriented to: person, time, and place - Skin Right foot bandage in place with good hemostasis. No abnormalities - Eyes No abnormalities - ENMT No abnormalities - Neck No abnormalities - CVS RRR - Chest No abnormalities - Abd + bowel sounds - GI nondistended Deferred - No abnormalities - Ext No significant edema - MSK 4+/5 weakness in both lower extremities. - Neuro No focal deficits - Psych No abnormalities ASSESSMENT: Pt. is a 68 yo Right-handed white male.On 11/04/2018 he was admitted to [facility] with diagnosis SEVERE PE RIPHERAL ARTERY DISEASE.His impairment category is Amputation of Limb 05 - Other Amputation (05.9).P re-morbidly, Pt. was independent/mod-I in Self-Care, Sphincter Control, Transfers Control, Locomotion , Communication, and Social Cognition; and he had good Sphincter Control.Currently, he has deficits o f Transfers Control, Locomotion, Endurance, Balance, Safety Awareness, and Self-Care.Pt. is now refer red to [facility] for acute in-patient rehabilitation in order to maximize pat ient's functional independence in activities of daily living, strength, ROM, and mobility.- Rehab Goa l Patient has realistic goal of being discharged at assistance level 6-Rian to reside at Home with Fam jenn/Relatives. MDM/PLAN: - Physical Therapy Gait dysfunction - to improve, our physical therapists will perform initial evaluation of pt's statu s upon admission and devise an individualized program for Gait Training, and Wheel Chair mobility Inability to transfer - to improve, our physical therapists will perform initial evaluation of pt's status upon admission and devise an individualized program for Bed mobility Need for home safety evaluation - to improve, our physical therapists will perform initial evaluatio n of pt's status upon admission and devise an individualized program for Home Evaluation Need in caregiver upon discharge - to improve, our physical therapists will perform initial evaluati on of pt's status upon admission and devise an individualized program for Caregiver Training Edema - to improve, our physical therapists will perform initial evaluation of pt's status upon admis kierra and devise an individualized program for Elevation Training, and Lymphedema Therapy New precaution - to improve, our physical therapists will perform initial evaluation of pt's status upon admission and devise an individualized program for Patient precaution education Poor balance - to improve, our physical therapists will perform initial evaluation of pt's status up on admission and devise an individualized program for Balance Training Poor endurance - to improve, our physical therapists will perform initial evaluation of pt's status upon admission and devise an individualized program for Endurance Training Weakness - to improve, our physical therapists will perform initial evaluation of pt's status upon a dmission and devise an individualized program for Aquatic Therapy, Neuromuscular Reeducation, and Str engthening Achieving independence - to improve, our physical therapists will perform initial evaluation of pt's status upon admission and devise an individualized program for Community Reintegration Activities - Occupational Therapy ADL deficits - to improve, our occupation therapists will perform initial evaluation of pt's status upon admission and devise an individualized program for Bathing, Bed mobility, Community Reintegratio n, Cooking, Dressing, Eating, Fine Motor Skills, Grooming, Homemaking, Kitchen Mobility, Laundry, Pat ient Education, Safety Awareness, Splinting - Positioning, Transfers(Toilet, Tub, Shower), and Wheel Chair Management Need for home child care provider - to improve, our occupation therapists will perform initial evaluation of pt's status upon admission and devise an individualized program for Caregiver Training Weakness - to improve, our occupation therapists will perform initial evaluation of pt's status upon admission and devise an individualized program for Aquatic Therapy, Balance, Endurance, UE ROM, and UE strengthening - Diet Type Continue ADA 1800 - Diet - Liquid Texture Continue Regular - Tube Feed Continue N/A - Lab Results blood Sugar Check ACHS - Weight Bearing Precaution NWB right LE - N/A Perform Consult Certified Prosthetic for prosthesis construction - Diet - Solid Texture Continue Regular - Shower allowing shower FUNCTIONAL STATUS: UPDATED AT WEEKLY TEAM CONFERENCE - Bladder Same accident frequency: 7-Ind - No accidents in the past 7 days - Bowel Same accident frequency: 7-Ind - No accidents in the past 7 days - Walking Same score based on distance walked: 1(<=50ft) - Wheelchair Same score based on distance traveled: 0(N/A) FUNCTIONAL STATUS: - Self-Care A. Eating Ind B. Grooming sup C. Bathing sup D. Dressing - Upper sup E. Dressing - Lower sup F. Toileting sup - Sphincter Control G: Bladder control Ind H: Bowel control Ind - Transfers Control I. Bed/Chair/Wheelchair Brigid J. Toilet Brigid K. Tub/Shower ADNO - Locomotion L. Walk/Wheelchair (C) Brigid L. Walk/Wheelchair (W) Brigid M. Stairs ADNO - Communication N. Comprehension (B) Ind O. Expression (B) Ind - Social Cognition P. Social Interaction Ind Q. Problem Solving Ind R. Memory Ind - Endurance Fair - Balance Fair - Safety Awareness Fair [facility]RENT [facility]. DEFICITS: Transfers Control, Locomotion, Endurance, Balance, Safety Awareness, and Self-Care SIGNATURE PANEL: (CDT)
[2018-12-01] MEDS: ATORVASTATIN 80 MG TAB PO SCH (20:00)
[2018-12-02] MEDS: PIPER/TAZO/NS 3.375gm 3.375 GM/100 ML BAG IV SCH ×3 (00:59→16:37)
--- NOTE | 2018-12-02 01:04 | FAST ---
SHIFT START DATE/TIME: 12/01/2018 19:00 (CDT) SHIFT END DATE/TIME: 12/02/2018 07:00 (CDT) NAME YUMIKO NAVARRO DATE OF : 1950 DATE OF ADMISSION: 11/26/2018 19:02 (CDT) PHONE: AGE: 68 N# [id number] GENDER: Male ENCOUNTER PHYSICIAN: Dr. Dash Hernandez M.D. 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 EATING: Activity did not occur on this shift EATING - SCORE: 0-UNK GROOMING: Activity did not occur on this shift GROOMING - SCORE: 0-UNK BATHING: Activity did not occur on this shift BATHING - SCORE: 0-UNK DRESSING - UPPER BODY: Activity did not occur on this shift ARTICLES SCORE Total number of steps: 0 DRESSING - UPPER BODY - SCORE: 0-UNK DRESSING - LOWER BODY: Activity did not occur on this shift ARTICLES SCORE Total number of steps: 0 DRESSING - LOWER BODY - SCORE: 0-UNK TOILETING: TOILETING - STEP 1: Does the patient require the assistance of a person or device, or need extra time with toileting? Yes . TOILETING - STEP 2: Does the patient require the assistance of a helper? Yes. TOILETING - STEP 3: How much assistance does the patient require from the helper? Only supervision TOILETING - SCORE: 5-SUP BLADDER MANAGEMENT: BLADDER MANAGEMENT - STEP 1: Does the patient control the bladder completely and intentionally without equipment or devices or med ications, and is always continent? Yes. BLADDER MANAGEMENT - SCORE: 7-IND BOWEL MANAGEMENT: BOWEL MANAGEMENT - STEP 1: Does the patient control bowels completely and intentionally without equipment devices or medications AND is always continent? Yes. BOWEL MANAGEMENT - SCORE: 7-IND TRANSFERS: BED, CHAIR, WHEELCHAIR: TRANSFERS: BED, CHAIR, WHEELCHAIR - STEP 1: Does the patient require assistance of a person or device, or need extra time with bed, chair, or whe elchair transfers? Yes. TRANSFERS: BED, CHAIR, WHEELCHAIR - STEP 2: Does the patient require the assistance of a helper? Yes. TRANSFERS: BED, CHAIR, WHEELCHAIR - STEP 3: How much assistance does the patient require from the helper? Only supervision TRANSFERS: BED, CHAIR, WHEELCHAIR - SCORE: 5-SUP TRANSFERS: TOILET: TRANSFERS: TOILET - STEP 1: Does the patient require the assistance of a person or device, or need extra time with toilet transfe rs? Yes. TRANSFERS: TOILET - STEP 2: Does the patient require the assistance of a helper? Yes. TRANSFERS: TOILET - STEP 3: How much assistance does the patient require from the helper? Only supervision, cuing, coaxing, OR he lp to set out transfer equipment or to lock brakes and/or lift foot rests TRANSFERS: TOILET - SCORE: 5-SUP TRANSFERS: SHOWER: Activity did not occur on this shift TRANSFERS: SHOWER - SCORE: 0-UNK TRANSFERS: TUB: Activity did not occur on this shift TRANSFERS: TUB - SCORE: 0-UNK LOCOMOTION: WALK: Activity did not occur on this shift LOCOMOTION: WALK - SCORE: 0-UNK LOCOMOTION: WHEELCHAIR: Activity did not occur on this shift LOCOMOTION: WHEELCHAIR - SCORE: 0-UNK COMPREHENSION: COMPREHENSION: TYPE: Both COMPREHENSION - STEP 1: Does the patient require help from a person or device, or need extra time to understand complex and a bstract ideas (such as current events, finances, discharge planning, medical issues, relationships, e tc)? No. COMPREHENSION - STEP 2: Does the patient need extra time, require an assistive device (such as glasses for visual comprehensi on or a hearing aid for auditory comprehension) or does s/he have mild difficulty understanding compl ex and abstract information? Yes. COMPREHENSION - SCORE: 6-ANIYA EXPRESSION EXPRESSION: TYPE: Both EXPRESSION - STEP 1: Does the patient require help from a person or device, or need extra time expressing complex and abst ract ideas (such as current events, finances, discharge planning, medical issues, relationships, etc) ? No. EXPRESSION - STEP 2: Does the patient need extra time, require an assistive device (such as augmentive communication syste m or a communication board), OR does s/he have mild difficulty expressing complex and abstract ideas (including mild dysarthria or mild word-find problems)? No. EXPRESSION - SCORE: 7-IND SOCIAL INTERACTION: SOCIAL INTERACTION - STEP 1: Does the patient require a helper to interact with others in social and therapeutic situations? No. SOCIAL INTERACTION - STEP 2: Does the patient need extra time in social situations, OR does s/he interact with staff, other patien ts, and family members ONLY in structured environments, OR does s/he require medication for social in teraction? No. SOCIAL INTERACTION - SCORE: 7-IND PROBLEM SOLVING: PROBLEM SOLVING - STEP 1: Does the patient need help from a person or device, or need extra time to solve complex problems such as managing a checking account or confronting interpersonal problems? No. PROBLEM SOLVING - STEP 2: Does the patient require extra time to make decisions or solve problems, OR does s/he have slight dif ficulty reading, initiating, or self-correcting in unfamiliar situations? No. PROBLEM SOLVING - SCORE: 7-IND MEMORY: MEMORY - STEP 1: Does the patient need help from a person or device, or need extra time to remember frequently encount ered people, daily routines, and executing requests? No. MEMORY - STEP 2: Does the patient have slight difficulty recognizing frequently encountered people, daily routines, or executing requests without the need for repetition or using self-initiated or environmental cues to remember? No. MEMORY - SCORE: 7-IND SIGNATURE PANEL: The following modified sections: Eating - Score, Grooming - Score, Bathing - Score, Dressing - Upper Body - Score, Dressing - Lower Body - Score, Toileting - Score, Bladder Management - Score, Bowel Man agement - Score, Transfers: Bed, Chair, Wheelchair - Score, Transfers: Toilet - Score, Transfers: Cammie wer - Score, Transfers: Tub - Score, Locomotion: Walk - Score, Locomotion: Wheelchair - Score, Compre hension - Score, Expression - Score, Social Interaction - Score, Problem Solving - Score, Memory - Sc ore were [electronically] signed by Susan Valdez CNA on FriDec 02 2018 01:02:53 GMT-0500 ([place])
[2018-12-02] MEDS: INSULIN -REGULAR HUMAN 50 UNIT/0.5 ML ML SQ SCH ×4 (06:51→20:50)
[2018-12-02] MEDS: FERROUS SULFATE 325 MG TAB PO SCH (07:51)
[2018-12-02] MEDS: FE SULF/FA/VIT B COMP & C TAB PO SCH (07:51)
[2018-12-02] MEDS: CRANBERRY FRUIT EXTRACT 200 MG CAP PO SCH ×2 (07:51→20:29)
[2018-12-02] MEDS: APIXABAN 2.5 MG TABLET PO SCH ×2 (07:51→20:29)
[2018-12-02] MEDS: METFORMIN HCL 500 MG TAB PO SCH (07:51)
[2018-12-02] MEDS: HYDROCODONE/APAP 5/325 MG TAB PO PRN ×3 (07:51→20:32)
[2018-12-02] MEDS: CLOPIDOGREL 75 MG TABLET PO SCH (07:51)
[2018-12-02] MEDS: PROMOD 30 ML DOSE PO SCH ×2 (08:00→20:30)
[2018-12-02] MEDS: COLLAGENASE 30 GM OINTMENT TOP SCH (08:00)
[2018-12-02] MEDS: INSULIN GLARGINE 100 UNITS/ML SQ SCH (08:01)
[2018-12-02] MEDS: INSULIN LISPRO 100 UNIT/1 ML SQ SCH ×3 (08:02→16:37)
--- NOTE | 2018-12-02 12:48 | FAST ---
ENCOUNTER DATE AND TIME: 12/02/2018 08:00 (CDT) NAME YUMIKO NAVARRO DATE OF : 1950 DATE OF ADMISSION: 11/26/2018 19:02 (CDT) PHONE: AGE: 68 N# [id number] GENDER: Male ENCOUNTER PHYSICIAN: Dr. Dash Hernandez M.D. 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 EATING: EATING - STEP 1: Does the patient require the assistance of a person or device, or need extra time when eating? No. EATING - SCORE: 7-IND GROOMING: Oral care Wash, rinse, and dry face Wash, rinse, and dry hands GROOMING - STEP 1: Does the patient require the assistance of a person or device, or need extra time when grooming? No. GROOMING - SCORE: 7-IND BATHING: Abdomen Buttocks Chest Left arm Left lower leg and foot Left upper leg Perineal area Right arm Right lower leg and foot Right upper leg BATHING - STEP 1: Does the patient require the assistance of a person or device, or need extra time when bathing? Yes. BATHING - STEP 2: Does the patient require the assistance of a helper? Yes. BATHING - STEP 3: How much assistance does the patient require from the helper? Only supervision, cuing, coaxing, instr uctions, encouragement BATHING - SCORE: 5-SUP DRESSING - UPPER BODY: T-shirt/pullover shirt (four steps) ARTICLES SCORE Total number of steps: 4 DRESSING - UPPER BODY - STEP 1: Does the patient require help from a person or device, or need extra time when dressing above the tera st? No. DRESSING - UPPER BODY - SCORE: 7-IND DRESSING - LOWER BODY: Elastic waist pants (three steps) Tied or buckled shoe - Left foot (two steps) Underwear (three steps) ARTICLES SCORE Total number of steps: 8 DRESSING - LOWER BODY - STEP 1: Does the patient require help from a person or device, or need extra time when dressing below the tera st? Yes. DRESSING - LOWER BODY - STEP 2: Does the patient require the assistance of a helper? Yes. DRESSING - LOWER BODY - STEP 3: Does the helper touch the patient while dressing? No. DRESSING - LOWER BODY - SCORE: 5-SUP TOILETING: Activity did not occur on this shift TOILETING - SCORE: 0-UNK BLADDER MANAGEMENT: Activity did not occur on this shift BLADDER MANAGEMENT - SCORE: 7-IND BOWEL MANAGEMENT: Activity did not occur on this shift BOWEL MANAGEMENT - SCORE: 7-IND TRANSFERS: BED, CHAIR, WHEELCHAIR: Activity did not occur on this shift TRANSFERS: BED, CHAIR, WHEELCHAIR - SCORE: 0-UNK TRANSFERS: TOILET: Activity did not occur on this shift TRANSFERS: TOILET - SCORE: 0-UNK TRANSFERS: SHOWER: Activity did not occur on this shift TRANSFERS: SHOWER - SCORE: 0-UNK TRANSFERS: TUB: TRANSFERS: TUB - STEP 1: Does the patient require the assistance of a person or device, or need extra time with tub transfers? Yes. TRANSFERS: TUB - STEP 2: Does the patient require the assistance of a helper? Yes. TRANSFERS: TUB - STEP 3: How much assistance does the patient require from the helper? Only supervision, cuing, coaxing, or he lp to set out transfer equipment or to lock brakes and/or lift foot rests TRANSFERS: TUB - SCORE: 5-SUP LOCOMOTION: WALK: Activity did not occur on this shift LOCOMOTION: WALK - SCORE: 0-UNK LOCOMOTION: WHEELCHAIR: Activity did not occur on this shift LOCOMOTION: WHEELCHAIR - SCORE: 0-UNK LOCOMOTION: STAIRS: Activity did not occur on this shift LOCOMOTION: STAIRS - SCORE: 0-UNK COMPREHENSION: COMPREHENSION: TYPE: Both COMPREHENSION - STEP 1: Does the patient require help from a person or device, or need extra time to understand complex and a bstract ideas (such as current events, finances, discharge planning, medical issues, relationships, e tc)? No. COMPREHENSION - STEP 2: Does the patient need extra time, require an assistive device (such as glasses for visual comprehensi on or a hearing aid for auditory comprehension) or does s/he have mild difficulty understanding compl ex and abstract information? No. COMPREHENSION - SCORE: 7-IND EXPRESSION EXPRESSION: TYPE: Both EXPRESSION - STEP 1: Does the patient require help from a person or device, or need extra time expressing complex and abst ract ideas (such as current events, finances, discharge planning, medical issues, relationships, etc) ? No. EXPRESSION - STEP 2: Does the patient need extra time, require an assistive device (such as augmentive communication syste m or a communication board), OR does s/he have mild difficulty expressing complex and abstract ideas (including mild dysarthria or mild word-find problems)? No. EXPRESSION - SCORE: 7-IND SOCIAL INTERACTION: SOCIAL INTERACTION - STEP 1: Does the patient require a helper to interact with others in social and therapeutic situations? No. SOCIAL INTERACTION - STEP 2: Does the patient need extra time in social situations, OR does s/he interact with staff, other patien ts, and family members ONLY in structured environments, OR does s/he require medication for social in teraction? Yes, patient needs extra time SOCIAL INTERACTION - SCORE: 6-ANIYA PROBLEM SOLVING: PROBLEM SOLVING - STEP 1: Does the patient need help from a person or device, or need extra time to solve complex problems such as managing a checking account or confronting interpersonal problems? No. PROBLEM SOLVING - STEP 2: Does the patient require extra time to make decisions or solve problems, OR does s/he have slight dif ficulty reading, initiating, or self-correcting in unfamiliar situations? No. PROBLEM SOLVING - SCORE: 7-IND MEMORY: MEMORY - STEP 1: Does the patient need help from a person or device, or need extra time to remember frequently encount ered people, daily routines, and executing requests? No. MEMORY - STEP 2: Does the patient have slight difficulty recognizing frequently encountered people, daily routines, or executing requests without the need for repetition or using self-initiated or environmental cues to remember? No. MEMORY - SCORE: 7-IND SIGNATURE PANEL: The following modified sections: Eating - Score, Grooming - Score, Bathing - Score, Dressing - Upper Body - Score, Dressing - Lower Body - Score, Toileting - Score, Transfers: Bed, Chair, Wheelchair - S core, Transfers: Toilet - Score, Transfers: Shower - Score, Transfers: Tub - Score, Comprehension - S core, Expression - Score, Social Interaction - Score, Problem Solving - Score, Memory - Score were [e lectronically] signed by Laura Layne OT on FriDec 02 2018 12:47:54 GMT-0500 ([facility] krishan)
--- NOTE | 2018-12-02 16:06 | FAST ---
ENCOUNTER DATE AND TIME: 12/02/2018 08:00 (CDT) NAME YUMIKO NAVARRO DATE OF : 1950 DATE OF ADMISSION: 11/26/2018 19:02 (CDT) PHONE: AGE: 68 N# [id number] GENDER: Male ENCOUNTER PHYSICIAN: Dr. Dash Hernandez M.D. 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 EATING: Activity did not occur on this shift EATING - SCORE: 0-UNK GROOMING: Activity did not occur on this shift GROOMING - SCORE: 0-UNK BATHING: Activity did not occur on this shift BATHING - SCORE: 0-UNK DRESSING - UPPER BODY: Activity did not occur on this shift Patient is not dressing in public clothing ARTICLES SCORE Total number of steps: 0 DRESSING - UPPER BODY - SCORE: 0-UNK DRESSING - LOWER BODY: Activity did not occur on this shift Patient is not dressing in public clothing ARTICLES SCORE Total number of steps: 0 DRESSING - LOWER BODY - SCORE: 0-UNK TOILETING: Activity did not occur on this shift TOILETING - SCORE: 0-UNK BLADDER MANAGEMENT: Activity did not occur on this shift BLADDER MANAGEMENT - SCORE: 7-IND BOWEL MANAGEMENT: Activity did not occur on this shift BOWEL MANAGEMENT - SCORE: 7-IND TRANSFERS: BED, CHAIR, WHEELCHAIR: TRANSFERS: BED, CHAIR, WHEELCHAIR - STEP 1: Does the patient require assistance of a person or device, or need extra time with bed, chair, or whe elchair transfers? Yes. TRANSFERS: BED, CHAIR, WHEELCHAIR - STEP 2: Does the patient require the assistance of a helper? No. Patient only requires an assistive device fo r bed, chair, wheelchair transfers such as a sliding board, grab bar, or brace, OR s/he takes more th an reasonable time, OR there is a safety concern when s/he performs the transfers TRANSFERS: BED, CHAIR, WHEELCHAIR - SCORE: 6-ANIYA TRANSFERS: TOILET: Activity did not occur on this shift TRANSFERS: TOILET - SCORE: 0-UNK TRANSFERS: SHOWER: Activity did not occur on this shift TRANSFERS: SHOWER - SCORE: 0-UNK TRANSFERS: TUB: Activity did not occur on this shift TRANSFERS: TUB - SCORE: 0-UNK LOCOMOTION: WALK: LOCOMOTION: WALK - STEP 1: Does the patient need help from a person or device, or need extra time to walk 150 feet? Yes. LOCOMOTION: WALK - STEP 2: How much assistance does the patient require to walk a minimum of 150 feet? Only supervision, cuing, or coaxing LOCOMOTION: WALK - SCORE: 5-SUP LOCOMOTION: WHEELCHAIR: LOCOMOTION: WHEELCHAIR - STEP 1: Does the patient need help to go 150 feet in a wheelchair? No. LOCOMOTION: WHEELCHAIR - SCORE: 6-ANIYA LOCOMOTION: STAIRS: LOCOMOTION: STAIRS - STEP 1: Does the patient need help to go up and down 12 to 14 stairs? Yes. LOCOMOTION: STAIRS - STEP 2: How much assistance does the patient need from the helper to go a minimum of 12 to 14 stairs? The pat ient goes less than 12 stairs, but at least 4 stairs LOCOMOTION: STAIRS - SCORE: 2-MAX COMPREHENSION: COMPREHENSION - SCORE: 0-UNK EXPRESSION EXPRESSION - SCORE: 0-UNK SOCIAL INTERACTION: SOCIAL INTERACTION - SCORE: 0-UNK PROBLEM SOLVING: PROBLEM SOLVING - SCORE: 0-UNK MEMORY: MEMORY - SCORE: 0-UNK SIGNATURE PANEL: The following modified sections: Transfers: Bed, Chair, Wheelchair - Score, Transfers: Toilet - Score , Locomotion: Walk - Score, Locomotion: Wheelchair - Score, Locomotion: Stairs - Score were [chris glover] signed by Jesús Cabrera PTA on FriDec 02 2018 16:04:57 GMT-0500 (Central Daylight Time)
--- NOTE | 2018-12-02 17:39 | P.PN ---
Subjective Date of Service: 12/02/18 Chief Complaint: RIGHT FOOT AMPUTATION. Subjective: No new changes HE FEELS WELL, HE HAS NO PAIN, NO FEVER OR CHILLS. NO NEW ISSUES. DOCTOR FROM [place] CALLED AND WILL SEE HIM IN AM FOR EVAL. Review of Systems 10-point ROS is otherwise unremarkable Physical Examination - Vital Signs Temperature: 97.8 F Blood Pressure: 128/69 Pulse: 96 Respirations: 18 Pulse Ox (%): 96 - Physical Exam General: Alert, Mild distress HEENT: Atraumatic, PERRLA, EOMI Neck: Supple, JVD not distended Respiratory: Clear to auscultation bilaterally, Normal air movement Cardiovascular: Regular rate/rhythm, Normal S1 S2 Gastrointestinal: Normal bowel sounds, No tenderness Musculoskeletal: No tenderness Integumentary: No rashes, Diabetic ulcer (NON HEALING STUMP R FOREFOOT AMPUTATION. SLOUGH AND NECROTIC TISSUE FROM THE INCISION.) Neurological: Normal speech, Normal tone, Normal affect Lymphatics: No axilla or inguinal lymphadenopathy - Studies Microbiology Data (last 24 hrs): 12/01/18 12:57 Wound - Right Foot Gram Stain - Final 12/01/18 12:57 Wound - Right Foot Gram Stain - Final Medications List Reviewed: Yes Assessment And Plan - Current Problems (Diagnosis) (1) PVD (peripheral vascular disease) Current Visit: Yes Status: Acute Plan: SP FOREFOOT AMPUTATION. STABLE. PT NOW. (2) Nontraumatic amputation of right foot Current Visit: Yes Status: Acute Plan: ABOVE. HP. (3) Diabetes Current Visit: Yes Status: Chronic Plan: DIABETES- STABLE BUT WITH SMOKING HE WILL GET COMPLICATIONS. HE WAS AWARE OF RISKS BEFORE. RESUME MEDS CHECK A1C AND LDL. Qualifiers: Diabetes mellitus type: type 2 Diabetes mellitus complication status: with circulatory complication Diabetes mellitus complication detail: with peripheral angiopathy with gangrene (4) Amputation stump infection Current Visit: Yes Status: Acute Plan: IT SEEMS LIKE WOUND IS NOT HEALING AND HAS INFECTION WITH NECROTIC NON HEALING WOUND. HE MAY NEED HIGHER AMPUTATION AT A THIS ULCER MAY NOT HEAL WITH YEARS OF SMOKING AND RELATED PVD. CULTURES HAVE BEEN SENT. ZOSYN STARTED. IV. DR. CHRISTA CALDERÓN HAS BEEN CALLED AND LEFT MESSAGE TO CALL BACK. [phone] HE NEEDS TO BE SENT BACK TO [facility]. DR. CALDERÓN CALLED. HE WILL SEE HIM IN AM. IV ABX CONTINUE. I LEAVE MRI FOR [facility]. HE WILL NEED DEBRIDEMENT BY THEM.
[2018-12-02] MEDS: ATORVASTATIN 80 MG TAB PO SCH (20:29)
[2018-12-02] MEDS: DOCUSATE NA/SENNA CONC 1 TAB PO PRN (20:30)
[2018-12-03] MEDS: PIPER/TAZO/NS 3.375gm 3.375 GM/100 ML BAG IV SCH ×3 (00:39→16:42)
--- NOTE | 2018-12-03 01:45 | FAST ---
SHIFT START DATE/TIME: 12/02/2018 19:00 (CDT) SHIFT END DATE/TIME: 12/03/2018 07:00 (CDT) NAME YUMIKO NAVARRO DATE OF : 1950 DATE OF ADMISSION: 11/26/2018 19:02 (CDT) PHONE: AGE: 68 N# [id number] GENDER: Male ENCOUNTER PHYSICIAN: Dr. Dash Hernandez M.D. 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 EATING: Activity did not occur on this shift EATING - SCORE: 0-UNK GROOMING: Activity did not occur on this shift GROOMING - SCORE: 0-UNK BATHING: Activity did not occur on this shift BATHING - SCORE: 0-UNK DRESSING - UPPER BODY: Patient is not dressing in public clothing ARTICLES SCORE Total number of steps: 0 DRESSING - UPPER BODY - SCORE: 0-UNK DRESSING - LOWER BODY: Patient is not dressing in public clothing ARTICLES SCORE Total number of steps: 0 DRESSING - LOWER BODY - SCORE: 0-UNK TOILETING: TOILETING - STEP 1: Does the patient require the assistance of a person or device, or need extra time with toileting? Yes . TOILETING - STEP 2: Does the patient require the assistance of a helper? Yes. TOILETING - STEP 3: How much assistance does the patient require from the helper? Only supervision TOILETING - SCORE: 5-SUP BLADDER MANAGEMENT: BLADDER MANAGEMENT - STEP 1: Does the patient control the bladder completely and intentionally without equipment or devices or med ications, and is always continent? No. BLADDER MANAGEMENT - STEP 2: Does the patient require the assistance of a helper? No, patient requires and independently uses an a ssistive device, such as a urinal, bedpan, bedside commode, catheter, absorbent pad, or collecting de vice BLADDER MANAGEMENT - SCORE: 6-ANIYA BOWEL MANAGEMENT: Activity did not occur on this shift BOWEL MANAGEMENT - SCORE: 7-IND TRANSFERS: BED, CHAIR, WHEELCHAIR: TRANSFERS: BED, CHAIR, WHEELCHAIR - STEP 1: Does the patient require assistance of a person or device, or need extra time with bed, chair, or whe elchair transfers? Yes. TRANSFERS: BED, CHAIR, WHEELCHAIR - STEP 2: Does the patient require the assistance of a helper? Yes. TRANSFERS: BED, CHAIR, WHEELCHAIR - STEP 3: How much assistance does the patient require from the helper? Steadying/guiding assistance TRANSFERS: BED, CHAIR, WHEELCHAIR - SCORE: 4-MIN TRANSFERS: TOILET: TRANSFERS: TOILET - STEP 1: Does the patient require the assistance of a person or device, or need extra time with toilet transfe rs? Yes. TRANSFERS: TOILET - STEP 2: Does the patient require the assistance of a helper? Yes. TRANSFERS: TOILET - STEP 3: How much assistance does the patient require from the helper? Only supervision, cuing, coaxing, OR he lp to set out transfer equipment or to lock brakes and/or lift foot rests TRANSFERS: TOILET - SCORE: 5-SUP TRANSFERS: SHOWER: Activity did not occur on this shift TRANSFERS: SHOWER - SCORE: 0-UNK TRANSFERS: TUB: Activity did not occur on this shift TRANSFERS: TUB - SCORE: 0-UNK LOCOMOTION: WALK: Activity did not occur on this shift LOCOMOTION: WALK - SCORE: 0-UNK LOCOMOTION: WHEELCHAIR: Activity did not occur on this shift LOCOMOTION: WHEELCHAIR - SCORE: 0-UNK COMPREHENSION: COMPREHENSION: TYPE: Both COMPREHENSION - STEP 1: Does the patient require help from a person or device, or need extra time to understand complex and a bstract ideas (such as current events, finances, discharge planning, medical issues, relationships, e tc)? No. COMPREHENSION - STEP 2: Does the patient need extra time, require an assistive device (such as glasses for visual comprehensi on or a hearing aid for auditory comprehension) or does s/he have mild difficulty understanding compl ex and abstract information? Yes. COMPREHENSION - SCORE: 6-ANIYA EXPRESSION EXPRESSION: TYPE: Both EXPRESSION - STEP 1: Does the patient require help from a person or device, or need extra time expressing complex and abst ract ideas (such as current events, finances, discharge planning, medical issues, relationships, etc) ? No. EXPRESSION - STEP 2: Does the patient need extra time, require an assistive device (such as augmentive communication syste m or a communication board), OR does s/he have mild difficulty expressing complex and abstract ideas (including mild dysarthria or mild word-find problems)? No. EXPRESSION - SCORE: 7-IND SOCIAL INTERACTION: SOCIAL INTERACTION - STEP 1: Does the patient require a helper to interact with others in social and therapeutic situations? No. SOCIAL INTERACTION - STEP 2: Does the patient need extra time in social situations, OR does s/he interact with staff, other patien ts, and family members ONLY in structured environments, OR does s/he require medication for social in teraction? Yes, patient needs extra time SOCIAL INTERACTION - SCORE: 6-ANIYA PROBLEM SOLVING: PROBLEM SOLVING - STEP 1: Does the patient need help from a person or device, or need extra time to solve complex problems such as managing a checking account or confronting interpersonal problems? No. PROBLEM SOLVING - STEP 2: Does the patient require extra time to make decisions or solve problems, OR does s/he have slight dif ficulty reading, initiating, or self-correcting in unfamiliar situations? Yes, patient needs extra ti me. PROBLEM SOLVING - SCORE: 6-ANIYA MEMORY: MEMORY - STEP 1: Does the patient need help from a person or device, or need extra time to remember frequently encount ered people, daily routines, and executing requests? No. MEMORY - STEP 2: Does the patient have slight difficulty recognizing frequently encountered people, daily routines, or executing requests without the need for repetition or using self-initiated or environmental cues to remember? Yes. MEMORY - SCORE: 6-ANIYA SIGNATURE PANEL: The following modified sections: Eating - Score, Grooming - Score, Dressing - Upper Body - Score, Florentin ssing - Lower Body - Score, Toileting - Score, Bladder Management - Score, Bowel Management - Score, Transfers: Bed, Chair, Wheelchair - Score, Transfers: Toilet - Score, Transfers: Shower - Score, Gamble sfers: Tub - Score, Locomotion: Walk - Score, Locomotion: Wheelchair - Score, Comprehension - Score, Expression - Score, Social Interaction - Score, Problem Solving - Score, Memory - Score were [electro nically] signed by Edilma Shah CNA on FriDec 03 2018 01:44:45 GMT-0500 (Central Daylight Time)
[2018-12-03 06:00] LABS: Absolute Lymphocytes (CBC) 2.6 K/uL (0.7-4.9); Absolute Monocytes 0.9 K/uL (0.1-1.3); Absolute Neutrophil 5.7 K/uL (1.8-8.0); Eosinophils % 4.7 % (0-4.4); Hematocrit 27.2 % (39.6-49.0); Lymphocytes % 26.3 % (15.3-44.8); MPV 6.5 fL (7.6-11.3); Monocytes % 9.4 % (3.3-12.3); RBC Red Blood Cell Count 3.17 M/uL (4.33-5.43)
[2018-12-03 06:14] LABS: BUN Blood Urea Nitrogen 17 mg/dL (7-18); Bicarbonate 31 mmol/L (21-32); Glucose Level 107 mg/dL (74-106); Potassium 4.2 mmol/L (3.5-5.1); Sodium Level 139 mmol/L (136-145)
[2018-12-03 06:22] LABS: Albumin 2.4 g/dL (3.4-5.0); Prealbumin 17.9 mg/dL (20-40)
[2018-12-03] MEDS: CLOPIDOGREL 75 MG TABLET PO SCH (06:48)
[2018-12-03] MEDS: APIXABAN 2.5 MG TABLET PO SCH ×2 (06:48→20:32)
[2018-12-03] MEDS: FERROUS SULFATE 325 MG TAB PO SCH (06:48)
[2018-12-03] MEDS: CRANBERRY FRUIT EXTRACT 200 MG CAP PO SCH ×2 (06:48→20:32)
[2018-12-03] MEDS: INSULIN LISPRO 100 UNIT/1 ML SQ SCH ×3 (06:49→16:41)
[2018-12-03] MEDS: FE SULF/FA/VIT B COMP & C TAB PO SCH (06:49)
[2018-12-03] MEDS: METFORMIN HCL 500 MG TAB PO SCH (06:49)
[2018-12-03] MEDS: INSULIN GLARGINE 100 UNITS/ML SQ SCH (06:50)
[2018-12-03] MEDS: INSULIN -REGULAR HUMAN 50 UNIT/0.5 ML ML SQ SCH ×4 (07:30→20:32)
[2018-12-03] MEDS: PROMOD 30 ML DOSE PO SCH ×2 (08:00→20:32)
[2018-12-03] MEDS: COLLAGENASE 30 GM OINTMENT TOP SCH (08:00)
--- NOTE | 2018-12-03 09:30 | P.RH.PN ---
Estimated Length of Stay: 13 Expected Discharge Date: 12/08/18 Discharge Disposition Plan: Home Family Support: Yes Halfway Goal: Mobility, Transfers, Self Care Vital Signs: Last Vital Signs Temp 97.6 F 12/03/18 07:41 Pulse 66 12/03/18 07:41 Resp 18 12/03/18 07:41 BP 124/56 L 12/03/18 07:41 Pulse Ox 97 12/03/18 07:41 Laboratory: Laboratory Last Values WBC 9.7 K/uL (4.3-10.9) 12/03/18 05:45 RBC 3.17 M/uL (4.33-5.43) L 12/03/18 05:45 Hgb 9.5 g/dL (13.6-17.9) L 12/03/18 05:45 Hct 27.2 % (39.6-49.0) L 12/03/18 05:45 MCV 85.8 fL (80-100) 12/03/18 05:45 MCH 29.8 pg (27.0-35.0) 12/03/18 05:45 MCHC 34.8 g/dL (32.0-36.0) 12/03/18 05:45 RDW 14.3 % (12.1-15.2) 12/03/18 05:45 Plt Count 488 K/uL (152-406) H 12/03/18 05:45 MPV 6.5 fL (7.6-11.3) L 12/03/18 05:45 Neutrophils % 58.6 % (41.7-73.7) 12/03/18 05:45 Lymphocytes % 26.3 % (15.3-44.8) 12/03/18 05:45 Monocytes % 9.4 % (3.3-12.3) 12/03/18 05:45 Eosinophils % 4.7 % (0-4.4) H 12/03/18 05:45 Basophils % 1.0 % (0-1.3) 12/03/18 05:45 Absolute Neutrophils 5.7 K/uL (1.8-8.0) 12/03/18 05:45 Absolute Lymphocytes 2.6 K/uL (0.7-4.9) 12/03/18 05:45 Absolute Monocytes 0.9 K/uL (0.1-1.3) 12/03/18 05:45 Absolute Eosinophils 0.5 K/uL (0-0.5) 12/03/18 05:45 Absolute Basophils 0.1 K/uL (0-0.5) 12/03/18 05:45 Sodium 139 mmol/L (136-145) 12/03/18 05:45 Potassium 4.2 mmol/L (3.5-5.1) 12/03/18 05:45 Chloride 103 mmol/L (98-107) 12/03/18 05:45 Carbon Dioxide 31 mmol/L (21-32) 12/03/18 05:45 BUN 17 mg/dL (7-18) 12/03/18 05:45 Creatinine 0.70 mg/dL (0.55-1.3) 12/03/18 05:45 Estimated GFR > 90 mL/min (=/>90) 12/03/18 05:45 Glucose 107 mg/dL (74-106) H 12/03/18 05:45 POC Glucose 107 mg/dl (65-120) 12/03/18 06:29 Hemoglobin A1c 6.8 % (4.2-6.3) H 11/30/18 18:08 Calcium 8.6 mg/dL (8.5-10.1) 12/03/18 05:45 Magnesium 2.3 mg/dL (1.8-2.4) 11/27/18 06:25 Albumin 2.4 g/dL (3.4-5.0) L 12/03/18 05:45 Prealbumin 17.9 mg/dL (20-40) L 12/03/18 05:45 Triglycerides 98 mg/dL (<150) 11/30/18 18:08 Cholesterol 65 mg/dL (<200) 11/30/18 18:08 LDL Cholesterol, Calc 21 (<130) 11/30/18 18:08 HDL Cholesterol 24 mg/dL (40-60) L 11/30/18 18:08 Cholesterol/HDL Ratio 2.71 11/30/18 18:08 Urine Color Dk yellow 11/26/18 19:30 Urine Appearance Clear 11/26/18 19:30 Urine pH 6.0 (5.0-7.0) 11/26/18 19:30 Ur Specific Central 1.020 (1.005-1.030) 11/26/18 19:30 Urine Ketones Negative (NEG) 11/26/18 19:30 Urine Blood Negative (NEG) 11/26/18 19:30 Urine Nitrite Negative (NEG) 11/26/18 19:30 Urine Bilirubin Negative (NEG) 11/26/18 19:30 Urine Urobilinogen 4.0 mg/dL (0.2-1.0) H 11/26/18 19:30 Ur Leukocyte Esterase 1+ (NEG) H 11/26/18 19:30 Urine RBC <5 /HPF (NONE SEEN) 11/26/18 19:30 Urine WBC 10-20 /HPF (<5) H 11/26/18 19:30 Ur Squamous Epith Cells <5 /HPF (NONE SEEN) 11/26/18 19:30 Urine Bacteria <20 /HPF (NONE SEEN) 11/26/18 19:30 Urine Culture Reflexed Not needed 11/26/18 19:30 Ur Random Microalbumin 2.1 mg/dL (< 1.9) H 11/30/18 20:35 Urine Creatinine 71.0 mg/dL (20-370) 11/30/18 20:35 Microalb/Creat Ratio 29.6 (< 30.0) 11/30/18 20:35 Urine Glucose Negative (NEG) 11/26/18 19:30 Urine Total Protein Trace (NEG) 11/26/18 19:30 Weight: 165 lb 6.4 oz Wound Present: Yes Closed Surgical Incision Present: Yes Negative Pressure Wound Therapy Present: No Physician Update: He has proteus growing from his right stump. He is following up with the surgeon today. He is doing very well with physical and occupational therapy with modified independent status on most activities. Medical Issues: Osteomyelitis - Zosyn 3.325mg Q8H IVPB Pain Issues: Mobile 5/325mg Q4H PRN Functional Improvement: Patient has met all short-term and long-term goals at this time, w/ the exception of Mod I WC mobility on all surfaces and a car transfer. Patient has done well w/ therapy and presents w/ good overall work ethic. 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 Please see the Rehabilitation Signature page for all necessary signatures.
--- NOTE | 2018-12-03 12:18 | FAST ---
SHIFT START DATE/TIME: 12/03/2018 07:00 (CDT) SHIFT END DATE/TIME: 12/03/2018 19:00 (CDT) NAME YUMIKO NAVARRO DATE OF : 1950 DATE OF ADMISSION: 11/26/2018 19:02 (CDT) PHONE: AGE: 68 N# [id number] GENDER: Male ENCOUNTER PHYSICIAN: Dr. Dash Hernandez M.D. 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 EATING: EATING - STEP 1: Does the patient require the assistance of a person or device, or need extra time when eating? Yes. EATING - STEP 2: Does the patient require the assistance of a helper? Yes. EATING - STEP 3: Does the patient perform half or more of the eating tasks? Yes. EATING - STEP 4: Does the patient need only supervision, cuing, coaxing OR help to apply an orthosis OR help to cut fo od, open containers, pour liquids, or butter bread? Yes. EATING - SCORE: 5-SUP GROOMING: Comb/brush hair Oral care Wash, rinse, and dry face Wash, rinse, and dry hands GROOMING - STEP 1: Does the patient require the assistance of a person or device, or need extra time when grooming? Yes. GROOMING - STEP 2: Does the patient require the assistance of a helper? Yes. GROOMING - STEP 3: How much assistance does the patient require from the helper? Only prior equipment preparation/set up from the helper GROOMING - SCORE: 5-SUP BATHING: Activity did not occur on this shift BATHING - SCORE: 0-UNK DRESSING - UPPER BODY: Activity did not occur on this shift ARTICLES SCORE Total number of steps: 0 DRESSING - UPPER BODY - SCORE: 0-UNK DRESSING - LOWER BODY: Activity did not occur on this shift ARTICLES SCORE Total number of steps: 0 DRESSING - LOWER BODY - SCORE: 0-UNK TOILETING: TOILETING - STEP 1: Does the patient require the assistance of a person or device, or need extra time with toileting? Yes . TOILETING - STEP 2: Does the patient require the assistance of a helper? Yes. TOILETING - STEP 3: How much assistance does the patient require from the helper? Only supervision TOILETING - SCORE: 5-SUP BLADDER MANAGEMENT: BLADDER MANAGEMENT - STEP 1: Does the patient control the bladder completely and intentionally without equipment or devices or med ications, and is always continent? No. BLADDER MANAGEMENT - STEP 2: Does the patient require the assistance of a helper? No, patient requires and independently uses an a ssistive device, such as a urinal, bedpan, bedside commode, catheter, absorbent pad, or collecting de vice BLADDER MANAGEMENT - SCORE: 6-ANIYA BLADDER MANAGEMENT - FREQUENCY OF ACCIDENTS: BLADDER MANAGEMENT(FA) - STEP 1: How many accidents has the patient had during the current shift? 0 BOWEL MANAGEMENT: Activity did not occur on this shift BOWEL MANAGEMENT - SCORE: 7-IND BOWEL MANAGEMENT - FREQUENCY OF ACCIDENTS: BOWEL MANAGEMENT(FA) - STEP 1: How many accidents has the patient had during the current shift? 0 TRANSFERS: BED, CHAIR, WHEELCHAIR: TRANSFERS: BED, CHAIR, WHEELCHAIR - STEP 1: Does the patient require assistance of a person or device, or need extra time with bed, chair, or whe elchair transfers? Yes. TRANSFERS: BED, CHAIR, WHEELCHAIR - STEP 2: Does the patient require the assistance of a helper? Yes. TRANSFERS: BED, CHAIR, WHEELCHAIR - STEP 3: How much assistance does the patient require from the helper? Only supervision TRANSFERS: BED, CHAIR, WHEELCHAIR - SCORE: 5-SUP TRANSFERS: TOILET: TRANSFERS: TOILET - STEP 1: Does the patient require the assistance of a person or device, or need extra time with toilet transfe rs? Yes. TRANSFERS: TOILET - STEP 2: Does the patient require the assistance of a helper? Yes. TRANSFERS: TOILET - STEP 3: How much assistance does the patient require from the helper? Only supervision, cuing, coaxing, OR he lp to set out transfer equipment or to lock brakes and/or lift foot rests TRANSFERS: TOILET - SCORE: 5-SUP TRANSFERS: SHOWER: Activity did not occur on this shift TRANSFERS: SHOWER - SCORE: 0-UNK TRANSFERS: TUB: Activity did not occur on this shift TRANSFERS: TUB - SCORE: 0-UNK LOCOMOTION: WALK: Activity did not occur on this shift LOCOMOTION: WALK - SCORE: 0-UNK LOCOMOTION: WHEELCHAIR: LOCOMOTION: WHEELCHAIR - STEP 1: Does the patient need help to go 150 feet in a wheelchair? Yes. LOCOMOTION: WHEELCHAIR - STEP 2: How much assistance does the patient need from the helper? Only supervision, cuing, or coaxing LOCOMOTION: WHEELCHAIR - SCORE: 5-SUP COMPREHENSION: COMPREHENSION: TYPE: Both COMPREHENSION - STEP 1: Does the patient require help from a person or device, or need extra time to understand complex and a bstract ideas (such as current events, finances, discharge planning, medical issues, relationships, e tc)? No. COMPREHENSION - STEP 2: Does the patient need extra time, require an assistive device (such as glasses for visual comprehensi on or a hearing aid for auditory comprehension) or does s/he have mild difficulty understanding compl ex and abstract information? No. COMPREHENSION - SCORE: 7-IND EXPRESSION EXPRESSION: TYPE: Both EXPRESSION - STEP 1: Does the patient require help from a person or device, or need extra time expressing complex and abst ract ideas (such as current events, finances, discharge planning, medical issues, relationships, etc) ? No. EXPRESSION - STEP 2: Does the patient need extra time, require an assistive device (such as augmentive communication syste m or a communication board), OR does s/he have mild difficulty expressing complex and abstract ideas (including mild dysarthria or mild word-find problems)? No. EXPRESSION - SCORE: 7-IND SOCIAL INTERACTION: SOCIAL INTERACTION - STEP 1: Does the patient require a helper to interact with others in social and therapeutic situations? No. SOCIAL INTERACTION - STEP 2: Does the patient need extra time in social situations, OR does s/he interact with staff, other patien ts, and family members ONLY in structured environments, OR does s/he require medication for social in teraction? No. SOCIAL INTERACTION - SCORE: 7-IND PROBLEM SOLVING: PROBLEM SOLVING - STEP 1: Does the patient need help from a person or device, or need extra time to solve complex problems such as managing a checking account or confronting interpersonal problems? No. PROBLEM SOLVING - STEP 2: Does the patient require extra time to make decisions or solve problems, OR does s/he have slight dif ficulty reading, initiating, or self-correcting in unfamiliar situations? Yes, patient needs extra ti me. PROBLEM SOLVING - SCORE: 6-ANIYA MEMORY: MEMORY - STEP 1: Does the patient need help from a person or device, or need extra time to remember frequently encount ered people, daily routines, and executing requests? No. MEMORY - STEP 2: Does the patient have slight difficulty recognizing frequently encountered people, daily routines, or executing requests without the need for repetition or using self-initiated or environmental cues to remember? No. MEMORY - SCORE: 7-IND SIGNATURE PANEL: The following modified sections: Eating - Score, Grooming - Score, Bathing - Score, Dressing - Upper Body - Score, Dressing - Lower Body - Score, Toileting - Score, Bladder Management - Score, Bowel Man agement - Score, Transfers: Bed, Chair, Wheelchair - Score, Transfers: Toilet - Score, Transfers: Cammie wer - Score, Transfers: Tub - Score, Locomotion: Walk - Score, Locomotion: Wheelchair - Score, Compre hension - Score, Expression - Score, Social Interaction - Score, Problem Solving - Score, Memory - Sc ore were [electronically] signed by Cecilia Hernandez RN on FriDec 03 2018 12:17:34 T-0500 ([facility])
--- NOTE | 2018-12-03 13:19 | FAST ---
ENCOUNTER DATE AND TIME: 12/03/2018 08:00 (CDT) NAME YUMIKO NAVARRO DATE OF : 1950 DATE OF ADMISSION: 11/26/2018 19:02 (CDT) PHONE: AGE: 68 N# [id number] GENDER: Male ENCOUNTER PHYSICIAN: Dr. Dash Hernandez M.D. 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 EATING: Activity did not occur on this shift EATING - SCORE: 0-UNK GROOMING: Activity did not occur on this shift GROOMING - SCORE: 0-UNK BATHING: Activity did not occur on this shift BATHING - SCORE: 0-UNK DRESSING - UPPER BODY: Activity did not occur on this shift Patient is not dressing in public clothing ARTICLES SCORE Total number of steps: 0 DRESSING - UPPER BODY - SCORE: 0-UNK DRESSING - LOWER BODY: Activity did not occur on this shift Patient is not dressing in public clothing ARTICLES SCORE Total number of steps: 0 DRESSING - LOWER BODY - SCORE: 0-UNK TOILETING: Activity did not occur on this shift TOILETING - SCORE: 0-UNK BLADDER MANAGEMENT: Activity did not occur on this shift BLADDER MANAGEMENT - SCORE: 7-IND BOWEL MANAGEMENT: Activity did not occur on this shift BOWEL MANAGEMENT - SCORE: 7-IND TRANSFERS: BED, CHAIR, WHEELCHAIR: TRANSFERS: BED, CHAIR, WHEELCHAIR - STEP 1: Does the patient require assistance of a person or device, or need extra time with bed, chair, or whe elchair transfers? Yes. TRANSFERS: BED, CHAIR, WHEELCHAIR - STEP 2: Does the patient require the assistance of a helper? No. Patient only requires an assistive device fo r bed, chair, wheelchair transfers such as a sliding board, grab bar, or brace, OR s/he takes more th an reasonable time, OR there is a safety concern when s/he performs the transfers TRANSFERS: BED, CHAIR, WHEELCHAIR - SCORE: 6-ANIYA TRANSFERS: TOILET: TRANSFERS: TOILET - STEP 1: Does the patient require the assistance of a person or device, or need extra time with toilet transfe rs? Yes. TRANSFERS: TOILET - STEP 2: Does the patient require the assistance of a helper? No. Patient only requires an assistive device winslow ch as a grab bar or special seat, OR s/he takes more than reasonable time to perform toilet transfers , OR there is a safety concern when s/he performs toilet transfers. TRANSFERS: TOILET - SCORE: 6-ANIYA TRANSFERS: SHOWER: Activity did not occur on this shift TRANSFERS: SHOWER - SCORE: 0-UNK TRANSFERS: TUB: Activity did not occur on this shift TRANSFERS: TUB - SCORE: 0-UNK LOCOMOTION: WALK: LOCOMOTION: WALK - STEP 1: Does the patient need help from a person or device, or need extra time to walk 150 feet? Yes. LOCOMOTION: WALK - STEP 2: How much assistance does the patient require to walk a minimum of 150 feet? Only supervision, cuing, or coaxing LOCOMOTION: WALK - SCORE: 5-SUP LOCOMOTION: WHEELCHAIR: LOCOMOTION: WHEELCHAIR - STEP 1: Does the patient need help to go 150 feet in a wheelchair? No. LOCOMOTION: WHEELCHAIR - SCORE: 6-ANIYA LOCOMOTION: STAIRS: Activity did not occur on this shift LOCOMOTION: STAIRS - SCORE: 0-UNK COMPREHENSION: COMPREHENSION - SCORE: 0-UNK EXPRESSION EXPRESSION - SCORE: 0-UNK SOCIAL INTERACTION: SOCIAL INTERACTION - SCORE: 0-UNK PROBLEM SOLVING: PROBLEM SOLVING - SCORE: 0-UNK MEMORY: MEMORY - SCORE: 0-UNK SIGNATURE PANEL: The following modified sections: Transfers: Bed, Chair, Wheelchair - Score, Transfers: Toilet - Score , Locomotion: Walk - Score, Locomotion: Wheelchair - Score, Locomotion: Stairs - Score were [chris glover] signed by Melyssa Knapp PTA on FriDec 03 2018 13:18:01 T-0500 (Central Daylight Time)
--- NOTE | 2018-12-03 18:30 | P.PN ---
Subjective Date of Service: 12/03/18 Chief Complaint: RIGHT FOOT AMPUTATION. HE FEELS WELL, HE HAS NO PAIN, NO FEVER OR CHILLS. NO NEW ISSUES. DOCTOR FROM [place] CALLED AND WILL SEE HIM IN AM FOR EVAL. SUGGESTED IV ABX, BID DRESSING. NO DERBIDEMENT DONE. Review of Systems 10-point ROS is otherwise unremarkable Physical Examination - Vital Signs Temperature: 97.6 F Blood Pressure: 124/56 Pulse: 66 Respirations: 18 Pulse Ox (%): 97 - Studies Laboratory Data (last 24 hrs) 12/03/18 05:45: Sodium 139, Potassium 4.2, BUN 17, Creatinine 0.70, Glucose 107 H 12/03/18 05:45: WBC 9.7, Hgb 9.5 L, Hct 27.2 L, Plt Count 488 H Microbiology Data (last 24 hrs): 12/01/18 12:57 Wound - Right Foot Gram Stain - Final 12/01/18 12:57 Wound - Right Foot Culture & Sensitivity - Final Proteus Vulgaris Medications List Reviewed: Yes Assessment And Plan - Current Problems (Diagnosis) (1) PVD (peripheral vascular disease) Current Visit: Yes Status: Acute Plan: SP FOREFOOT AMPUTATION. STABLE. PT NOW. (2) Nontraumatic amputation of right foot Current Visit: Yes Status: Acute Plan: ABOVE. HP. SED RATE CRP MRI IN AM. TALKED TO VIK. (3) Diabetes Current Visit: Yes Status: Chronic Plan: DIABETES- STABLE BUT WITH SMOKING HE WILL GET COMPLICATIONS. HE WAS AWARE OF RISKS BEFORE. RESUME MEDS CHECK A1C AND LDL. Qualifiers: Diabetes mellitus type: type 2 Diabetes mellitus complication status: with circulatory complication Diabetes mellitus complication detail: with peripheral angiopathy with gangrene (4) Amputation stump infection Current Visit: Yes Status: Acute Plan: IT SEEMS LIKE WOUND IS NOT HEALING AND HAS INFECTION WITH NECROTIC NON HEALING WOUND. HE MAY NEED HIGHER AMPUTATION AT [facility] THIS ULCER MAY NOT HEAL WITH YEARS OF SMOKING AND RELATED PVD. CULTURES HAVE BEEN SENT. ZOSYN STARTED. IV. DR. CHRISTA CALDERÓN HAS BEEN CALLED AND LEFT MESSAGE TO CALL BACK. [phone] HE NEEDS TO BE SENT BACK TO [facility]. DR. CALDERÓN CALLED. HE WILL SEE HIM IN AM. IV ABX CONTINUE. I LEAVE MRI FOR [facility]. HE WILL NEED DEBRIDEMENT BY THEM.
[2018-12-03] MEDS: ATORVASTATIN 80 MG TAB PO SCH (20:32)
[2018-12-03] MEDS: HYDROCODONE/APAP 5/325 MG TAB PO PRN (20:35)
[2018-12-03] MEDS: DOCUSATE NA/SENNA CONC 1 TAB PO SCH (20:36)
[2018-12-04] MEDS: PIPER/TAZO/NS 3.375gm 3.375 GM/100 ML BAG IV SCH ×3 (00:31→16:43)
[2018-12-04 06:40] LABS: Absolute Lymphocytes (CBC) 2.3 K/uL (0.7-4.9); Absolute Monocytes 0.8 K/uL (0.1-1.3); Basophils % 1.4 % (0-1.3); Eosinophils % 4.8 % (0-4.4); Hematocrit 27.5 % (39.6-49.0); Lymphocytes % 26.9 % (15.3-44.8); MPV 6.7 fL (7.6-11.3); Monocytes % 8.7 % (3.3-12.3); RBC Red Blood Cell Count 3.17 M/uL (4.33-5.43)
[2018-12-04 06:47] LABS: BUN Blood Urea Nitrogen 15 mg/dL (7-18); Bicarbonate 31 mmol/L (21-32); Glucose Level 121 mg/dL (74-106); Potassium 4.2 mmol/L (3.5-5.1); Sodium Level 140 mmol/L (136-145)
[2018-12-04] MEDS: INSULIN -REGULAR HUMAN 50 UNIT/0.5 ML ML SQ SCH ×4 (07:06→21:00)
[2018-12-04] MEDS: INSULIN GLARGINE 100 UNITS/ML SQ SCH (08:12)
[2018-12-04] MEDS: INSULIN LISPRO 100 UNIT/1 ML SQ SCH ×3 (08:13→16:46)
[2018-12-04] MEDS: HYDROCODONE/APAP 5/325 MG TAB PO PRN ×2 (08:15→20:23)
[2018-12-04] MEDS: FERROUS SULFATE 325 MG TAB PO SCH (08:15)
[2018-12-04] MEDS: APIXABAN 2.5 MG TABLET PO SCH ×2 (08:15→20:22)
[2018-12-04] MEDS: METFORMIN HCL 500 MG TAB PO SCH (08:15)
[2018-12-04] MEDS: FE SULF/FA/VIT B COMP & C TAB PO SCH (08:15)
[2018-12-04] MEDS: CRANBERRY FRUIT EXTRACT 200 MG CAP PO SCH ×2 (08:15→20:23)
[2018-12-04] MEDS: CLOPIDOGREL 75 MG TABLET PO SCH (08:15)
[2018-12-04] MEDS: PROMOD 30 ML DOSE PO SCH ×2 (08:16→20:24)
[2018-12-04] MEDS: COLLAGENASE 30 GM OINTMENT TOP SCH (09:13)
--- NOTE | 2018-12-04 10:26 | RAD REPORT ---
EXAM DESCRIPTION: MRIFoot Right Wo Cont12/04/2018 8:55 am CLINICAL HISTORY: Right foot pain and swelling COMPARISON: none TECHNIQUE: Axial, sagittal and coronal magnetic resonance imaging of the right foot was obtained. FINDINGS: Amputation involves the right midfoot No significant abnormal signal within the bones is displayed. A 4 x 1 centimeter ill-defined fluid collection is present within the soft tissues anterior to the na vicular and the cuboid. IMPRESSION: Amputation involving the right midfoot No evidence of osteomyelitis. 4 x 1 centimeter ill-defined fluid collection within the soft tissues anterior to the navicular and c uboid could indicate infection or simply a postsurgical change
--- NOTE | 2018-12-04 16:15 | FAST ---
ENCOUNTER DATE AND TIME: 12/04/2018 08:00 (CDT) NAME UYMIKO NAVARRO DATE OF : 1950 DATE OF ADMISSION: 11/26/2018 19:02 (CDT) PHONE: AGE: 68 N# [id number] GENDER: Male ENCOUNTER PHYSICIAN: Dr. Dash Hernandez M.D. 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 EATING: Activity did not occur on this shift EATING - SCORE: 0-UNK GROOMING: Activity did not occur on this shift GROOMING - SCORE: 0-UNK BATHING: Activity did not occur on this shift BATHING - SCORE: 0-UNK DRESSING - UPPER BODY: Activity did not occur on this shift Patient is not dressing in public clothing ARTICLES SCORE Total number of steps: 0 DRESSING - UPPER BODY - SCORE: 0-UNK DRESSING - LOWER BODY: Activity did not occur on this shift Patient is not dressing in public clothing ARTICLES SCORE Total number of steps: 0 DRESSING - LOWER BODY - SCORE: 0-UNK TOILETING: Activity did not occur on this shift TOILETING - SCORE: 0-UNK BLADDER MANAGEMENT: Activity did not occur on this shift BLADDER MANAGEMENT - SCORE: 7-IND BOWEL MANAGEMENT: Activity did not occur on this shift BOWEL MANAGEMENT - SCORE: 7-IND TRANSFERS: BED, CHAIR, WHEELCHAIR: TRANSFERS: BED, CHAIR, WHEELCHAIR - STEP 1: Does the patient require assistance of a person or device, or need extra time with bed, chair, or whe elchair transfers? Yes. TRANSFERS: BED, CHAIR, WHEELCHAIR - STEP 2: Does the patient require the assistance of a helper? No. Patient only requires an assistive device fo r bed, chair, wheelchair transfers such as a sliding board, grab bar, or brace, OR s/he takes more th an reasonable time, OR there is a safety concern when s/he performs the transfers TRANSFERS: BED, CHAIR, WHEELCHAIR - SCORE: 6-ANIYA TRANSFERS: TOILET: TRANSFERS: TOILET - STEP 1: Does the patient require the assistance of a person or device, or need extra time with toilet transfe rs? Yes. TRANSFERS: TOILET - STEP 2: Does the patient require the assistance of a helper? No. Patient only requires an assistive device winslow ch as a grab bar or special seat, OR s/he takes more than reasonable time to perform toilet transfers , OR there is a safety concern when s/he performs toilet transfers. TRANSFERS: TOILET - SCORE: 6-ANIYA TRANSFERS: SHOWER: Activity did not occur on this shift TRANSFERS: SHOWER - SCORE: 0-UNK TRANSFERS: TUB: Activity did not occur on this shift TRANSFERS: TUB - SCORE: 0-UNK LOCOMOTION: WALK: HOUSEHOLD EXCEPTION: Patient walks at least 50 feet independently (with or without a device) LOCOMOTION: WALK - SCORE: 5-SUP LOCOMOTION: WHEELCHAIR: LOCOMOTION: WHEELCHAIR - STEP 1: Does the patient need help to go 150 feet in a wheelchair? No. LOCOMOTION: WHEELCHAIR - SCORE: 6-ANIYA LOCOMOTION: STAIRS: Activity did not occur on this shift LOCOMOTION: STAIRS - SCORE: 0-UNK COMPREHENSION: COMPREHENSION - SCORE: 0-UNK EXPRESSION EXPRESSION - SCORE: 0-UNK SOCIAL INTERACTION: SOCIAL INTERACTION - SCORE: 0-UNK PROBLEM SOLVING: PROBLEM SOLVING - SCORE: 0-UNK MEMORY: MEMORY - SCORE: 0-UNK SIGNATURE PANEL: The following modified sections: Transfers: Bed, Chair, Wheelchair - Score, Transfers: Toilet - Score , Locomotion: Walk - Score, Locomotion: Wheelchair - Score, Locomotion: Stairs - Score were [chris glover] signed by Melyssa Knapp PTA on FriDec 04 2018 16:14:21 GMT-0500 (Central Daylight Time)
[2018-12-04] MEDS: DOCUSATE NA/SENNA CONC 1 TAB PO SCH (20:23)
[2018-12-04] MEDS: ATORVASTATIN 80 MG TAB PO SCH (20:23)
--- NOTE | 2018-12-04 21:53 | P.PN ---
Subjective Date of Service: 12/04/18 Chief Complaint: RIGHT FOOT AMPUTATION. Subjective: No C/O voiced HE FEELS WELL, HE HAS NO PAIN, NO FEVER OR CHILLS. NO NEW ISSUES. DOCTOR FROM [facility] CALLED AND WILL SEE HIM IN AM FOR EVAL. SUGGESTED IV ABX, BID DRESSING. NO DERBIDEMENT DONE. MR NAVARRO WENT TO [facility] AND WILL GO BACK AGAIN IN ONE WEEK. HE FEELS WELL. Review of Systems 10-point ROS is otherwise unremarkable Physical Examination - Vital Signs Temperature: 97.1 F Blood Pressure: 142/65 Pulse: 87 Respirations: 16 Pulse Ox (%): 93 - Physical Exam General: Alert, Mild distress HEENT: Atraumatic, PERRLA, EOMI Neck: Supple, JVD not distended Respiratory: Clear to auscultation bilaterally, Normal air movement Cardiovascular: Regular rate/rhythm, Normal S1 S2 Gastrointestinal: Normal bowel sounds, No tenderness Musculoskeletal: No tenderness Integumentary: No rashes Neurological: Normal speech, Normal tone, Normal affect Lymphatics: No axilla or inguinal lymphadenopathy - Studies Laboratory Data (last 24 hrs) 12/04/18 06:12: Sodium 140, Potassium 4.2, BUN 15, Creatinine 0.63, Glucose 121 H 12/04/18 06:12: WBC 8.6, Hgb 9.7 L, Hct 27.5 L, Plt Count 485 H Medications List Reviewed: Yes Assessment And Plan - Current Problems (Diagnosis) (1) PVD (peripheral vascular disease) Current Visit: Yes Status: Acute Plan: SP FOREFOOT AMPUTATION. STABLE. PT NOW. (2) Nontraumatic amputation of right foot Current Visit: Yes Status: Acute Plan: ABOVE. HP. SED RATE CRP MRI IN AM. TALKED TO VIK. (3) Diabetes Current Visit: Yes Status: Chronic Plan: DIABETES- STABLE BUT WITH SMOKING HE WILL GET COMPLICATIONS. HE WAS AWARE OF RISKS BEFORE. RESUME MEDS CHECK A1C AND LDL. Qualifiers: Diabetes mellitus type: type 2 Diabetes mellitus complication status: with circulatory complication Diabetes mellitus complication detail: with peripheral angiopathy with gangrene (4) Amputation stump infection Current Visit: Yes Status: Acute Plan: IT SEEMS LIKE WOUND IS NOT HEALING AND HAS INFECTION WITH NECROTIC NON HEALING WOUND. HE MAY NEED HIGHER AMPUTATION AT [facility] THIS ULCER MAY NOT HEAL WITH YEARS OF SMOKING AND RELATED PVD. CULTURES HAVE BEEN SENT. ZOSYN STARTED. IV. DR. CHRISTA CALDERÓN HAS BEEN CALLED AND LEFT MESSAGE TO CALL BACK. [phone] HE NEEDS TO BE SENT BACK TO [facility]. DR. CALDERÓN CALLED. HE WILL SEE HIM IN AM. IV ABX CONTINUE. I LEAVE MRI FOR [facility]. HE WILL NEED DEBRIDEMENT BY THEM. DR. CALDERÓN IS MANAGING THIS. I AM AFRAID OF INFECTION BUT HE IS NOT SURE. HE ADVISED CONTINUATION OF ABX IV.
[2018-12-05] MEDS: PIPER/TAZO/NS 3.375gm 3.375 GM/100 ML BAG IV SCH ×3 (01:50→16:54)
--- NOTE | 2018-12-05 02:54 | FAST ---
SHIFT START DATE/TIME: 12/04/2018 19:00 (CDT) SHIFT END DATE/TIME: 12/05/2018 07:00 (CDT) NAME YUMIKO NAVARRO DATE OF : 1950 DATE OF ADMISSION: 11/26/2018 19:02 (CDT) PHONE: AGE: 68 N# [id number] GENDER: Male ENCOUNTER PHYSICIAN: Dr. Dash Hernandez M.D. 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 EATING: Activity did not occur on this shift EATING - SCORE: 0-UNK GROOMING: Activity did not occur on this shift GROOMING - SCORE: 0-UNK BATHING: Activity did not occur on this shift BATHING - SCORE: 0-UNK DRESSING - UPPER BODY: Patient is not dressing in public clothing ARTICLES SCORE Total number of steps: 0 DRESSING - UPPER BODY - SCORE: 0-UNK DRESSING - LOWER BODY: Patient is not dressing in public clothing ARTICLES SCORE Total number of steps: 0 DRESSING - LOWER BODY - SCORE: 0-UNK TOILETING: TOILETING - STEP 1: Does the patient require the assistance of a person or device, or need extra time with toileting? Yes . TOILETING - STEP 2: Does the patient require the assistance of a helper? Yes. TOILETING - STEP 3: How much assistance does the patient require from the helper? Hands-on assistance from the helper TOILETING - STEP 4: Of the 3 tasks: 1) Adjusting clothing prior to use, 2) Cleansing of perineal area, 3) Adjusting clot alla after use; How many tasks does the patient perform WITHOUT assistance of the helper? Three tasks with steadying assistance from the helper TOILETING - SCORE: 4-MIN BLADDER MANAGEMENT: BLADDER MANAGEMENT - STEP 1: Does the patient control the bladder completely and intentionally without equipment or devices or med ications, and is always continent? No. BLADDER MANAGEMENT - STEP 2: Does the patient require the assistance of a helper? Yes. BLADDER MANAGEMENT - STEP 3: How much assistance does the patient require from the helper? Only set-up of equipment - such as plac ing it within reach of the patient or emptying a device - to maintain either satisfactory voiding pat tern or managing an external device, such as an absorbent pad, ileal device, or catheter BLADDER MANAGEMENT - SCORE: 5-SUP BOWEL MANAGEMENT: Activity did not occur on this shift BOWEL MANAGEMENT - SCORE: 7-IND TRANSFERS: BED, CHAIR, WHEELCHAIR: TRANSFERS: BED, CHAIR, WHEELCHAIR - STEP 1: Does the patient require assistance of a person or device, or need extra time with bed, chair, or whe elchair transfers? Yes. TRANSFERS: BED, CHAIR, WHEELCHAIR - STEP 2: Does the patient require the assistance of a helper? Yes. TRANSFERS: BED, CHAIR, WHEELCHAIR - STEP 3: How much assistance does the patient require from the helper? Steadying/guiding assistance TRANSFERS: BED, CHAIR, WHEELCHAIR - SCORE: 4-MIN TRANSFERS: TOILET: TRANSFERS: TOILET - STEP 1: Does the patient require the assistance of a person or device, or need extra time with toilet transfe rs? Yes. TRANSFERS: TOILET - STEP 2: Does the patient require the assistance of a helper? Yes. TRANSFERS: TOILET - STEP 3: How much assistance does the patient require from the helper? Patient performs half or more of the tr ansferring tasks TRANSFERS: TOILET - STEP 4: Does the patient need only incidental help such as contact guard or steadying during toilet transfer? No. Patient needs more than incidental help TRANSFERS: TOILET - SCORE: 3-MOD TRANSFERS: SHOWER: Activity did not occur on this shift TRANSFERS: SHOWER - SCORE: 0-UNK TRANSFERS: TUB: Activity did not occur on this shift TRANSFERS: TUB - SCORE: 0-UNK LOCOMOTION: WALK: Activity did not occur on this shift LOCOMOTION: WALK - SCORE: 0-UNK LOCOMOTION: WHEELCHAIR: Activity did not occur on this shift LOCOMOTION: WHEELCHAIR - SCORE: 0-UNK COMPREHENSION: COMPREHENSION: TYPE: Both COMPREHENSION - STEP 1: Does the patient require help from a person or device, or need extra time to understand complex and a bstract ideas (such as current events, finances, discharge planning, medical issues, relationships, e tc)? No. COMPREHENSION - STEP 2: Does the patient need extra time, require an assistive device (such as glasses for visual comprehensi on or a hearing aid for auditory comprehension) or does s/he have mild difficulty understanding compl ex and abstract information? Yes. COMPREHENSION - SCORE: 6-ANIYA EXPRESSION EXPRESSION: TYPE: Both EXPRESSION - STEP 1: Does the patient require help from a person or device, or need extra time expressing complex and abst ract ideas (such as current events, finances, discharge planning, medical issues, relationships, etc) ? No. EXPRESSION - STEP 2: Does the patient need extra time, require an assistive device (such as augmentive communication syste m or a communication board), OR does s/he have mild difficulty expressing complex and abstract ideas (including mild dysarthria or mild word-find problems)? Yes. EXPRESSION - SCORE: 6-ANIYA SOCIAL INTERACTION: SOCIAL INTERACTION - STEP 1: Does the patient require a helper to interact with others in social and therapeutic situations? No. SOCIAL INTERACTION - STEP 2: Does the patient need extra time in social situations, OR does s/he interact with staff, other patien ts, and family members ONLY in structured environments, OR does s/he require medication for social in teraction? Yes, patient needs extra time SOCIAL INTERACTION - SCORE: 6-ANIYA PROBLEM SOLVING: PROBLEM SOLVING - STEP 1: Does the patient need help from a person or device, or need extra time to solve complex problems such as managing a checking account or confronting interpersonal problems? No. PROBLEM SOLVING - STEP 2: Does the patient require extra time to make decisions or solve problems, OR does s/he have slight dif ficulty reading, initiating, or self-correcting in unfamiliar situations? Yes, patient needs extra ti me. PROBLEM SOLVING - SCORE: 6-ANIYA MEMORY: MEMORY - STEP 1: Does the patient need help from a person or device, or need extra time to remember frequently encount ered people, daily routines, and executing requests? No. MEMORY - STEP 2: Does the patient have slight difficulty recognizing frequently encountered people, daily routines, or executing requests without the need for repetition or using self-initiated or environmental cues to remember? Yes. MEMORY - SCORE: 6-ANIYA
[2018-12-05] MEDS: INSULIN -REGULAR HUMAN 50 UNIT/0.5 ML ML SQ SCH ×4 (07:10→21:00)
[2018-12-05] MEDS: INSULIN LISPRO 100 UNIT/1 ML SQ SCH ×3 (07:37→16:58)
[2018-12-05] MEDS: INSULIN GLARGINE 100 UNITS/ML SQ SCH (07:37)
[2018-12-05] MEDS: CRANBERRY FRUIT EXTRACT 200 MG CAP PO SCH ×2 (07:38→21:06)
[2018-12-05] MEDS: APIXABAN 2.5 MG TABLET PO SCH ×2 (07:39→21:06)
[2018-12-05] MEDS: CLOPIDOGREL 75 MG TABLET PO SCH (07:39)
[2018-12-05] MEDS: FERROUS SULFATE 325 MG TAB PO SCH (07:39)
[2018-12-05] MEDS: PROMOD 30 ML DOSE PO SCH ×2 (07:39→21:05)
[2018-12-05] MEDS: METFORMIN HCL 500 MG TAB PO SCH (07:39)
[2018-12-05] MEDS: FE SULF/FA/VIT B COMP & C TAB PO SCH (07:39)
[2018-12-05] MEDS: COLLAGENASE 30 GM OINTMENT TOP SCH (08:51)
--- NOTE | 2018-12-05 16:00 | P.PN ---
Subjective Date of Service: 12/05/18 Chief Complaint: SP VISIT TO [facility], STABLE Subjective: Improving HE FEELS WELL, HE HAS NO PAIN, NO FEVER OR CHILLS. NO NEW ISSUES. DOCTOR FROM [place] CALLED AND WILL SEE HIM IN AM FOR EVAL. SUGGESTED IV ABX, BID DRESSING. NO DERBIDEMENT DONE. MR NAVARRO WENT TO [facility] AND WILL GO BACK AGAIN IN ONE WEEK. HE FEELS WELL. PER RN THE ULCER IS NOT SMELLING ANY LONGER. NO PAIN. Review of Systems 10-point ROS is otherwise unremarkable Physical Examination - Vital Signs Temperature: 98.2 F Blood Pressure: 123/58 Pulse: 66 Respirations: 16 Pulse Ox (%): 96 - Physical Exam General: Alert, In no apparent distress HEENT: Atraumatic, PERRLA, EOMI Neck: Supple, JVD not distended Respiratory: Clear to auscultation bilaterally, Normal air movement Cardiovascular: Regular rate/rhythm, Normal S1 S2 Gastrointestinal: Normal bowel sounds, No tenderness Musculoskeletal: No tenderness, Other (RIGHT FOT AMPUTEE. SP [facility] FU) Integumentary: No rashes Neurological: Normal speech, Normal tone, Normal affect Lymphatics: No axilla or inguinal lymphadenopathy - Studies Microbiology Data (last 24 hrs): 12/01/18 12:57 Wound - Right Foot Gram Stain - Final 12/01/18 12:57 Wound - Right Foot Anaerobic Culture - Final NO ANAEROBES GROWN. Medications List Reviewed: Yes Assessment And Plan - Current Problems (Diagnosis) (1) PVD (peripheral vascular disease) Current Visit: Yes Status: Acute Plan: SP FOREFOOT AMPUTATION. STABLE. PT NOW. (2) Nontraumatic amputation of right foot Current Visit: Yes Status: Acute Plan: ABOVE. HP. SED RATE CRP MRI IN AM. TALKED TO VIK. (3) Diabetes Current Visit: Yes Status: Chronic Plan: DIABETES- STABLE BUT WITH SMOKING HE WILL GET COMPLICATIONS. HE WAS AWARE OF RISKS BEFORE. RESUME MEDS CHECK A1C AND LDL. WILL CHECK IN AM. DRESSING DONE ALREADY. STABLE ON ABX Qualifiers: Diabetes mellitus type: type 2 Diabetes mellitus complication status: with circulatory complication Diabetes mellitus complication detail: with peripheral angiopathy with gangrene (4) Amputation stump infection Current Visit: Yes Status: Acute Plan: IT SEEMS LIKE WOUND IS NOT HEALING AND HAS INFECTION WITH NECROTIC NON HEALING WOUND. HE MAY NEED HIGHER AMPUTATION AT [facility] THIS ULCER MAY NOT HEAL WITH YEARS OF SMOKING AND RELATED PVD. CULTURES HAVE BEEN SENT. ZOSYN STARTED. IV. DR. CHRISTA CALDERÓN HAS BEEN CALLED AND LEFT MESSAGE TO CALL BACK. [phone] HE NEEDS TO BE SENT BACK TO [facility]. DR. CALDERÓN CALLED. HE WILL SEE HIM IN AM. IV ABX CONTINUE. I LEAVE MRI FOR [facility]. HE WILL NEED DEBRIDEMENT BY THEM. DR. CALDERÓN IS MANAGING THIS. I AM AFRAID OF INFECTION BUT HE IS NOT SURE. HE ADVISED CONTINUATION OF ABX IV.
[2018-12-05] MEDS: ATORVASTATIN 80 MG TAB PO SCH (21:06)
[2018-12-05] MEDS: DOCUSATE NA/SENNA CONC 1 TAB PO SCH (21:06)
[2018-12-06] MEDS: PIPER/TAZO/NS 3.375gm 3.375 GM/100 ML BAG IV SCH ×3 (01:39→16:53)
--- NOTE | 2018-12-06 02:19 | FAST ---
SHIFT START DATE/TIME: 12/05/2018 19:00 (CDT) SHIFT END DATE/TIME: 12/06/2018 07:00 (CDT) NAME YUMIKO NAVARRO DATE OF : 1950 DATE OF ADMISSION: 11/26/2018 19:02 (CDT) PHONE: AGE: 68 N# [id number] GENDER: Male ENCOUNTER PHYSICIAN: Dr. Dash Hernandez M.D. 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 EATING: Activity did not occur on this shift EATING - SCORE: 0-UNK GROOMING: Activity did not occur on this shift GROOMING - SCORE: 0-UNK BATHING: Activity did not occur on this shift BATHING - SCORE: 0-UNK DRESSING - UPPER BODY: Activity did not occur on this shift ARTICLES SCORE Total number of steps: 0 DRESSING - UPPER BODY - SCORE: 0-UNK DRESSING - LOWER BODY: Activity did not occur on this shift ARTICLES SCORE Total number of steps: 0 DRESSING - LOWER BODY - SCORE: 0-UNK TOILETING: Activity did not occur on this shift TOILETING - SCORE: 0-UNK BLADDER MANAGEMENT: BLADDER MANAGEMENT - STEP 1: Does the patient control the bladder completely and intentionally without equipment or devices or med ications, and is always continent? Yes. BLADDER MANAGEMENT - SCORE: 7-IND BOWEL MANAGEMENT: Activity did not occur on this shift BOWEL MANAGEMENT - SCORE: 7-IND TRANSFERS: BED, CHAIR, WHEELCHAIR: TRANSFERS: BED, CHAIR, WHEELCHAIR - STEP 1: Does the patient require assistance of a person or device, or need extra time with bed, chair, or whe elchair transfers? Yes. TRANSFERS: BED, CHAIR, WHEELCHAIR - STEP 2: Does the patient require the assistance of a helper? Yes. TRANSFERS: BED, CHAIR, WHEELCHAIR - STEP 3: How much assistance does the patient require from the helper? Steadying/guiding assistance TRANSFERS: BED, CHAIR, WHEELCHAIR - SCORE: 4-MIN TRANSFERS: TOILET: Activity did not occur on this shift TRANSFERS: TOILET - SCORE: 0-UNK TRANSFERS: SHOWER: Activity did not occur on this shift TRANSFERS: SHOWER - SCORE: 0-UNK TRANSFERS: TUB: Activity did not occur on this shift TRANSFERS: TUB - SCORE: 0-UNK LOCOMOTION: WALK: Activity did not occur on this shift LOCOMOTION: WALK - SCORE: 0-UNK LOCOMOTION: WHEELCHAIR: Activity did not occur on this shift LOCOMOTION: WHEELCHAIR - SCORE: 0-UNK COMPREHENSION: COMPREHENSION: TYPE: Both COMPREHENSION - STEP 1: Does the patient require help from a person or device, or need extra time to understand complex and a bstract ideas (such as current events, finances, discharge planning, medical issues, relationships, e tc)? No. COMPREHENSION - STEP 2: Does the patient need extra time, require an assistive device (such as glasses for visual comprehensi on or a hearing aid for auditory comprehension) or does s/he have mild difficulty understanding compl ex and abstract information? Yes. COMPREHENSION - SCORE: 6-ANIYA EXPRESSION EXPRESSION: TYPE: Both EXPRESSION - STEP 1: Does the patient require help from a person or device, or need extra time expressing complex and abst ract ideas (such as current events, finances, discharge planning, medical issues, relationships, etc) ? No. EXPRESSION - STEP 2: Does the patient need extra time, require an assistive device (such as augmentive communication syste m or a communication board), OR does s/he have mild difficulty expressing complex and abstract ideas (including mild dysarthria or mild word-find problems)? No. EXPRESSION - SCORE: 7-IND SOCIAL INTERACTION: SOCIAL INTERACTION - STEP 1: Does the patient require a helper to interact with others in social and therapeutic situations? No. SOCIAL INTERACTION - STEP 2: Does the patient need extra time in social situations, OR does s/he interact with staff, other patien ts, and family members ONLY in structured environments, OR does s/he require medication for social in teraction? No. SOCIAL INTERACTION - SCORE: 7-IND PROBLEM SOLVING: PROBLEM SOLVING - STEP 1: Does the patient need help from a person or device, or need extra time to solve complex problems such as managing a checking account or confronting interpersonal problems? No. PROBLEM SOLVING - STEP 2: Does the patient require extra time to make decisions or solve problems, OR does s/he have slight dif ficulty reading, initiating, or self-correcting in unfamiliar situations? No. PROBLEM SOLVING - SCORE: 7-IND MEMORY: MEMORY - STEP 1: Does the patient need help from a person or device, or need extra time to remember frequently encount ered people, daily routines, and executing requests? No. MEMORY - STEP 2: Does the patient have slight difficulty recognizing frequently encountered people, daily routines, or executing requests without the need for repetition or using self-initiated or environmental cues to remember? No. MEMORY - SCORE: 7-IND SIGNATURE PANEL: The following modified sections: Eating - Score, Grooming - Score, Bathing - Score, Dressing - Upper Body - Score, Dressing - Lower Body - Score, Toileting - Score, Bladder Management - Score, Bowel Man agement - Score, Transfers: Bed, Chair, Wheelchair - Score, Transfers: Toilet - Score, Transfers: Cammie wer - Score, Transfers: Tub - Score, Locomotion: Walk - Score, Locomotion: Wheelchair - Score, Compre hension - Score, Expression - Score, Social Interaction - Score, Problem Solving - Score, Memory - Sc ore were [electronically] signed by Susan Valdez CNA on FriDec 06 2018 02:19:02 T-0500 ([facility] Time)
[2018-12-06] MEDS: INSULIN -REGULAR HUMAN 50 UNIT/0.5 ML ML SQ SCH ×4 (07:30→21:00)
[2018-12-06] MEDS: INSULIN GLARGINE 100 UNITS/ML SQ SCH (08:16)
[2018-12-06] MEDS: INSULIN LISPRO 100 UNIT/1 ML SQ SCH ×3 (08:16→16:51)
[2018-12-06] MEDS: FERROUS SULFATE 325 MG TAB PO SCH (08:17)
[2018-12-06] MEDS: CRANBERRY FRUIT EXTRACT 200 MG CAP PO SCH ×2 (08:17→20:00)
[2018-12-06] MEDS: FE SULF/FA/VIT B COMP & C TAB PO SCH (08:17)
[2018-12-06] MEDS: METFORMIN HCL 500 MG TAB PO SCH (08:17)
[2018-12-06] MEDS: CLOPIDOGREL 75 MG TABLET PO SCH (08:18)
[2018-12-06] MEDS: APIXABAN 2.5 MG TABLET PO SCH ×2 (08:18→20:00)
[2018-12-06] MEDS: PROMOD 30 ML DOSE PO SCH ×2 (08:18→19:59)
[2018-12-06] MEDS: COLLAGENASE 30 GM OINTMENT TOP SCH (08:53)
--- NOTE | 2018-12-06 09:35 | FAST ---
SHIFT START DATE/TIME: 12/06/2018 07:00 (CDT) SHIFT END DATE/TIME: 12/06/2018 19:00 (CDT) NAME YUMIKO NAVARRO DATE OF : 1950 DATE OF ADMISSION: 11/26/2018 19:02 (CDT) PHONE: AGE: 68 N# [id number] GENDER: Male ENCOUNTER PHYSICIAN: Dr. Dash Hernandez M.D. 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 EATING: EATING - STEP 1: Does the patient require the assistance of a person or device, or need extra time when eating? Yes. EATING - STEP 2: Does the patient require the assistance of a helper? No, patient only requires an assistive device, O R s/he takes more than reasonable time to eat, OR there is a safety concern, OR s/he requires modifie d food consistency EATING - SCORE: 6-ANIYA GROOMING: Activity did not occur on this shift GROOMING - SCORE: 0-UNK BATHING: Activity did not occur on this shift BATHING - SCORE: 0-UNK DRESSING - UPPER BODY: Activity did not occur on this shift ARTICLES SCORE Total number of steps: 0 DRESSING - UPPER BODY - SCORE: 0-UNK DRESSING - LOWER BODY: Activity did not occur on this shift ARTICLES SCORE Total number of steps: 0 DRESSING - LOWER BODY - SCORE: 0-UNK TOILETING: TOILETING - STEP 1: Does the patient require the assistance of a person or device, or need extra time with toileting? Yes . TOILETING - STEP 2: Does the patient require the assistance of a helper? Yes. TOILETING - STEP 3: How much assistance does the patient require from the helper? Only supervision TOILETING - SCORE: 5-SUP BLADDER MANAGEMENT: BLADDER MANAGEMENT - STEP 1: Does the patient control the bladder completely and intentionally without equipment or devices or med ications, and is always continent? No. BLADDER MANAGEMENT - STEP 2: Does the patient require the assistance of a helper? No, patient requires and independently uses an a ssistive device, such as a urinal, bedpan, bedside commode, catheter, absorbent pad, or collecting de vice BLADDER MANAGEMENT - SCORE: 6-ANIYA BOWEL MANAGEMENT: Activity did not occur on this shift BOWEL MANAGEMENT - SCORE: 7-IND TRANSFERS: BED, CHAIR, WHEELCHAIR: TRANSFERS: BED, CHAIR, WHEELCHAIR - STEP 1: Does the patient require assistance of a person or device, or need extra time with bed, chair, or whe elchair transfers? Yes. TRANSFERS: BED, CHAIR, WHEELCHAIR - STEP 2: Does the patient require the assistance of a helper? Yes. TRANSFERS: BED, CHAIR, WHEELCHAIR - STEP 3: How much assistance does the patient require from the helper? Only supervision TRANSFERS: BED, CHAIR, WHEELCHAIR - SCORE: 5-SUP TRANSFERS: TOILET: TRANSFERS: TOILET - STEP 1: Does the patient require the assistance of a person or device, or need extra time with toilet transfe rs? Yes. TRANSFERS: TOILET - STEP 2: Does the patient require the assistance of a helper? Yes. TRANSFERS: TOILET - STEP 3: How much assistance does the patient require from the helper? Only supervision, cuing, coaxing, OR he lp to set out transfer equipment or to lock brakes and/or lift foot rests TRANSFERS: TOILET - SCORE: 5-SUP TRANSFERS: SHOWER: Activity did not occur on this shift TRANSFERS: SHOWER - SCORE: 0-UNK TRANSFERS: TUB: Activity did not occur on this shift TRANSFERS: TUB - SCORE: 0-UNK LOCOMOTION: WALK: Activity did not occur on this shift LOCOMOTION: WALK - SCORE: 0-UNK LOCOMOTION: WHEELCHAIR: Activity did not occur on this shift LOCOMOTION: WHEELCHAIR - SCORE: 0-UNK COMPREHENSION: COMPREHENSION: TYPE: Both COMPREHENSION - STEP 1: Does the patient require help from a person or device, or need extra time to understand complex and a bstract ideas (such as current events, finances, discharge planning, medical issues, relationships, e tc)? No. COMPREHENSION - STEP 2: Does the patient need extra time, require an assistive device (such as glasses for visual comprehensi on or a hearing aid for auditory comprehension) or does s/he have mild difficulty understanding compl ex and abstract information? Yes. COMPREHENSION - SCORE: 6-ANIYA EXPRESSION EXPRESSION: TYPE: Both EXPRESSION - STEP 1: Does the patient require help from a person or device, or need extra time expressing complex and abst ract ideas (such as current events, finances, discharge planning, medical issues, relationships, etc) ? No. EXPRESSION - STEP 2: Does the patient need extra time, require an assistive device (such as augmentive communication syste m or a communication board), OR does s/he have mild difficulty expressing complex and abstract ideas (including mild dysarthria or mild word-find problems)? No. EXPRESSION - SCORE: 7-IND SOCIAL INTERACTION: SOCIAL INTERACTION - STEP 1: Does the patient require a helper to interact with others in social and therapeutic situations? No. SOCIAL INTERACTION - STEP 2: Does the patient need extra time in social situations, OR does s/he interact with staff, other patien ts, and family members ONLY in structured environments, OR does s/he require medication for social in teraction? No. SOCIAL INTERACTION - SCORE: 7-IND PROBLEM SOLVING: PROBLEM SOLVING - STEP 1: Does the patient need help from a person or device, or need extra time to solve complex problems such as managing a checking account or confronting interpersonal problems? No. PROBLEM SOLVING - STEP 2: Does the patient require extra time to make decisions or solve problems, OR does s/he have slight dif ficulty reading, initiating, or self-correcting in unfamiliar situations? No. PROBLEM SOLVING - SCORE: 7-IND MEMORY: MEMORY - STEP 1: Does the patient need help from a person or device, or need extra time to remember frequently encount ered people, daily routines, and executing requests? No. MEMORY - STEP 2: Does the patient have slight difficulty recognizing frequently encountered people, daily routines, or executing requests without the need for repetition or using self-initiated or environmental cues to remember? No. MEMORY - SCORE: 7-IND SIGNATURE PANEL: The following modified sections: Eating - Score, Grooming - Score, Bathing - Score, Dressing - Upper Body - Score, Dressing - Lower Body - Score, Toileting - Score, Bladder Management - Score, Bowel Man agement - Score, Transfers: Bed, Chair, Wheelchair - Score, Transfers: Toilet - Score, Transfers: Cammie wer - Score, Transfers: Tub - Score, Locomotion: Walk - Score, Locomotion: Wheelchair - Score, Compre hension - Score, Expression - Score, Social Interaction - Score, Problem Solving - Score, Memory - Sc ore were [electronically] signed by Vance Pacheco on FriDec 06 2018 09:34:35 GMT-0500 (Central Daylight Time)
--- NOTE | 2018-12-06 13:33 | P.PN ---
Subjective Date of Service: 12/06/18 Chief Complaint: NO PAIN, NO FEVER. FEELS WELL. Subjective: Improving HE FEELS WELL, HE HAS NO PAIN, NO FEVER OR CHILLS. NO NEW ISSUES. DOCTOR FROM [facility] CALLED AND WILL SEE HIM IN AM FOR EVAL. SUGGESTED IV ABX, BID DRESSING. NO DERBIDEMENT DONE. MR NAVARRO WENT TO [facility] AND WILL GO BACK AGAIN IN ONE WEEK. HE FEELS WELL. PER RN THE ULCER IS NOT SMELLING ANY LONGER. NO PAIN. MR. NAVARRO IS DOING WELL. HE HAS NO PAIN. Review of Systems 10-point ROS is otherwise unremarkable Integumentary: As per HPI Physical Examination - Vital Signs Temperature: 96.9 F Blood Pressure: 121/63 Pulse: 86 Respirations: 14 Pulse Ox (%): 97 - Physical Exam General: Alert, Oriented x3 HEENT: Atraumatic, PERRLA, EOMI Neck: Supple, JVD not distended Respiratory: Clear to auscultation bilaterally, Normal air movement Cardiovascular: Regular rate/rhythm, Normal S1 S2 Gastrointestinal: Normal bowel sounds, No tenderness Musculoskeletal: Other (RIGHT SIDE FOOT- WOUND , POST OP. STILL HAS ABOUT 1 ML OF PURULENT DISCHARGE COMING AFTER PRESSURE TODAY. HE HAS NO PAIN) Integumentary: No rashes Neurological: Normal speech, Normal tone, Normal affect Lymphatics: No axilla or inguinal lymphadenopathy - Studies Microbiology Data (last 24 hrs): 12/01/18 12:57 Wound - Right Foot Gram Stain - Final 12/01/18 12:57 Wound - Right Foot Anaerobic Culture - Final NO ANAEROBES GROWN. Medications List Reviewed: Yes Assessment And Plan - Current Problems (Diagnosis) (1) PVD (peripheral vascular disease) Current Visit: Yes Status: Acute Plan: SP FOREFOOT AMPUTATION. STABLE. PT NOW. (2) Nontraumatic amputation of right foot Current Visit: Yes Status: Acute Plan: ABOVE. HP. SED RATE CRP MRI IN AM. TALKED TO [facility]. (3) Diabetes Current Visit: Yes Status: Chronic Plan: DIABETES- STABLE BUT WITH SMOKING HE WILL GET COMPLICATIONS. HE WAS AWARE OF RISKS BEFORE. RESUME MEDS CHECK A1C AND LDL. WILL CHECK IN AM. DRESSING DONE ALREADY. STABLE ON ABX Qualifiers: Diabetes mellitus type: type 2 Diabetes mellitus complication status: with circulatory complication Diabetes mellitus complication detail: with peripheral angiopathy with gangrene (4) Amputation stump infection Current Visit: Yes Status: Acute Plan: IT SEEMS LIKE WOUND IS NOT HEALING AND HAS INFECTION WITH NECROTIC NON HEALING WOUND. HE MAY NEED HIGHER AMPUTATION AT A THIS ULCER MAY NOT HEAL WITH YEARS OF SMOKING AND RELATED PVD. CULTURES HAVE BEEN SENT. ZOSYN STARTED. IV. DR. CHRISTA CALDERÓN HAS BEEN CALLED AND LEFT MESSAGE TO CALL BACK. [phone] HE NEEDS TO BE SENT BACK TO [facility]. DR. CALDERÓN CALLED. HE WILL SEE HIM IN AM. IV ABX CONTINUE. I LEAVE MRI FOR [facility]. HE WILL NEED DEBRIDEMENT BY THEM. DR. CALDERÓN IS MANAGING THIS. I AM AFRAID OF INFECTION BUT HE IS NOT SURE. HE ADVISED CONTINUATION OF ABX IV. PROTEUS FROM WOUND. RESUME ZOSYN. I REMOVED SOME MORE PUS TODAY JUST BY PRESSURE. HE WILL FU WITH DR. CALDERÓN. FURTHER DEBRIDMENT MAY BE NEEDED- BUT DECISION PER DR. CALDERÓN.
[2018-12-06] MEDS: ATORVASTATIN 80 MG TAB PO SCH (20:00)
[2018-12-06] MEDS: DOCUSATE NA/SENNA CONC 1 TAB PO SCH (20:00)
[2018-12-07] MEDS: PIPER/TAZO/NS 3.375gm 3.375 GM/100 ML BAG IV SCH ×3 (01:34→17:59)
--- NOTE | 2018-12-07 02:19 | FAST ---
SHIFT START DATE/TIME: 12/06/2018 19:00 (CDT) SHIFT END DATE/TIME: 12/07/2018 07:00 (CDT) NAME YUMIKO NAVARRO DATE OF : 1950 DATE OF ADMISSION: 11/26/2018 19:02 (CDT) PHONE: AGE: 68 N# [id number] GENDER: Male ENCOUNTER PHYSICIAN: Dr. Dash Hernandez M.D. 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 EATING: Activity did not occur on this shift EATING - SCORE: 0-UNK GROOMING: Activity did not occur on this shift GROOMING - SCORE: 0-UNK BATHING: Activity did not occur on this shift BATHING - SCORE: 0-UNK DRESSING - UPPER BODY: Activity did not occur on this shift ARTICLES SCORE Total number of steps: 0 DRESSING - UPPER BODY - SCORE: 0-UNK DRESSING - LOWER BODY: Activity did not occur on this shift ARTICLES SCORE Total number of steps: 0 DRESSING - LOWER BODY - SCORE: 0-UNK TOILETING: TOILETING - STEP 1: Does the patient require the assistance of a person or device, or need extra time with toileting? Yes . TOILETING - STEP 2: Does the patient require the assistance of a helper? Yes. TOILETING - STEP 3: How much assistance does the patient require from the helper? Only supervision TOILETING - SCORE: 5-SUP BLADDER MANAGEMENT: BLADDER MANAGEMENT - STEP 1: Does the patient control the bladder completely and intentionally without equipment or devices or med ications, and is always continent? Yes. BLADDER MANAGEMENT - SCORE: 7-IND BOWEL MANAGEMENT: Activity did not occur on this shift BOWEL MANAGEMENT - SCORE: 7-IND TRANSFERS: BED, CHAIR, WHEELCHAIR: TRANSFERS: BED, CHAIR, WHEELCHAIR - STEP 1: Does the patient require assistance of a person or device, or need extra time with bed, chair, or whe elchair transfers? Yes. TRANSFERS: BED, CHAIR, WHEELCHAIR - STEP 2: Does the patient require the assistance of a helper? Yes. TRANSFERS: BED, CHAIR, WHEELCHAIR - STEP 3: How much assistance does the patient require from the helper? Steadying/guiding assistance TRANSFERS: BED, CHAIR, WHEELCHAIR - SCORE: 4-MIN TRANSFERS: TOILET: TRANSFERS: TOILET - STEP 1: Does the patient require the assistance of a person or device, or need extra time with toilet transfe rs? Yes. TRANSFERS: TOILET - STEP 2: Does the patient require the assistance of a helper? Yes. TRANSFERS: TOILET - STEP 3: How much assistance does the patient require from the helper? Only supervision, cuing, coaxing, OR he lp to set out transfer equipment or to lock brakes and/or lift foot rests TRANSFERS: TOILET - SCORE: 5-SUP TRANSFERS: SHOWER: Activity did not occur on this shift TRANSFERS: SHOWER - SCORE: 0-UNK TRANSFERS: TUB: Activity did not occur on this shift TRANSFERS: TUB - SCORE: 0-UNK LOCOMOTION: WALK: Activity did not occur on this shift LOCOMOTION: WALK - SCORE: 0-UNK LOCOMOTION: WHEELCHAIR: Activity did not occur on this shift LOCOMOTION: WHEELCHAIR - SCORE: 0-UNK COMPREHENSION: COMPREHENSION: TYPE: Both COMPREHENSION - STEP 1: Does the patient require help from a person or device, or need extra time to understand complex and a bstract ideas (such as current events, finances, discharge planning, medical issues, relationships, e tc)? No. COMPREHENSION - STEP 2: Does the patient need extra time, require an assistive device (such as glasses for visual comprehensi on or a hearing aid for auditory comprehension) or does s/he have mild difficulty understanding compl ex and abstract information? Yes. COMPREHENSION - SCORE: 6-ANIYA EXPRESSION EXPRESSION: TYPE: Both EXPRESSION - STEP 1: Does the patient require help from a person or device, or need extra time expressing complex and abst ract ideas (such as current events, finances, discharge planning, medical issues, relationships, etc) ? No. EXPRESSION - STEP 2: Does the patient need extra time, require an assistive device (such as augmentive communication syste m or a communication board), OR does s/he have mild difficulty expressing complex and abstract ideas (including mild dysarthria or mild word-find problems)? No. EXPRESSION - SCORE: 7-IND SOCIAL INTERACTION: SOCIAL INTERACTION - STEP 1: Does the patient require a helper to interact with others in social and therapeutic situations? No. SOCIAL INTERACTION - STEP 2: Does the patient need extra time in social situations, OR does s/he interact with staff, other patien ts, and family members ONLY in structured environments, OR does s/he require medication for social in teraction? No. SOCIAL INTERACTION - SCORE: 7-IND PROBLEM SOLVING: PROBLEM SOLVING - STEP 1: Does the patient need help from a person or device, or need extra time to solve complex problems such as managing a checking account or confronting interpersonal problems? No. PROBLEM SOLVING - STEP 2: Does the patient require extra time to make decisions or solve problems, OR does s/he have slight dif ficulty reading, initiating, or self-correcting in unfamiliar situations? No. PROBLEM SOLVING - SCORE: 7-IND MEMORY: MEMORY - STEP 1: Does the patient need help from a person or device, or need extra time to remember frequently encount ered people, daily routines, and executing requests? No. MEMORY - STEP 2: Does the patient have slight difficulty recognizing frequently encountered people, daily routines, or executing requests without the need for repetition or using self-initiated or environmental cues to remember? No. MEMORY - SCORE: 7-IND SIGNATURE PANEL: The following modified sections: Eating - Score, Grooming - Score, Bathing - Score, Dressing - Upper Body - Score, Dressing - Lower Body - Score, Toileting - Score, Bladder Management - Score, Bowel Man agement - Score, Transfers: Bed, Chair, Wheelchair - Score, Transfers: Toilet - Score, Transfers: Cammie wer - Score, Transfers: Tub - Score, Locomotion: Walk - Score, Locomotion: Wheelchair - Score, Compre hension - Score, Expression - Score, Social Interaction - Score, Problem Solving - Score, Memory - Sc ore were [electronically] signed by Susan Valdez CNA on FriDec 07 2018 02:18:19 T-0500 ([facility])
[2018-12-07] MEDS: INSULIN -REGULAR HUMAN 50 UNIT/0.5 ML ML SQ SCH ×4 (07:30→20:59)
[2018-12-07] MEDS: PROMOD 30 ML DOSE PO SCH ×2 (08:00→20:59)
[2018-12-07] MEDS: COLLAGENASE 30 GM OINTMENT TOP SCH (08:00)
[2018-12-07] MEDS: INSULIN LISPRO 100 UNIT/1 ML SQ SCH ×3 (08:25→17:00)
[2018-12-07] MEDS: INSULIN GLARGINE 100 UNITS/ML SQ SCH (08:26)
[2018-12-07] MEDS: CLOPIDOGREL 75 MG TABLET PO SCH (08:27)
[2018-12-07] MEDS: METFORMIN HCL 500 MG TAB PO SCH (08:27)
[2018-12-07] MEDS: FERROUS SULFATE 325 MG TAB PO SCH (08:27)
[2018-12-07] MEDS: FE SULF/FA/VIT B COMP & C TAB PO SCH (08:27)
[2018-12-07] MEDS: CRANBERRY FRUIT EXTRACT 200 MG CAP PO SCH ×2 (08:27→20:58)
[2018-12-07] MEDS: APIXABAN 2.5 MG TABLET PO SCH ×2 (08:28→20:59)
--- NOTE | 2018-12-07 11:24 | FAST ---
ENCOUNTER DATE AND TIME: 12/07/2018 08:00 (CDT) NAME YUMIKO NAVARRO DATE OF : 1950 DATE OF ADMISSION: 11/26/2018 19:02 (CDT) PHONE: AGE: 68 N# [id number] GENDER: Male ENCOUNTER PHYSICIAN: Dr. Dash Hernandez M.D. 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 EATING: Activity did not occur on this shift EATING - SCORE: 0-UNK GROOMING: Activity did not occur on this shift GROOMING - SCORE: 0-UNK BATHING: Activity did not occur on this shift BATHING - SCORE: 0-UNK DRESSING - UPPER BODY: Activity did not occur on this shift Patient is not dressing in public clothing ARTICLES SCORE Total number of steps: 0 DRESSING - UPPER BODY - SCORE: 0-UNK DRESSING - LOWER BODY: Activity did not occur on this shift Patient is not dressing in public clothing ARTICLES SCORE Total number of steps: 0 DRESSING - LOWER BODY - SCORE: 0-UNK TOILETING: Activity did not occur on this shift TOILETING - SCORE: 0-UNK BLADDER MANAGEMENT: Activity did not occur on this shift BLADDER MANAGEMENT - SCORE: 7-IND BOWEL MANAGEMENT: Activity did not occur on this shift BOWEL MANAGEMENT - SCORE: 7-IND TRANSFERS: BED, CHAIR, WHEELCHAIR: TRANSFERS: BED, CHAIR, WHEELCHAIR - STEP 1: Does the patient require assistance of a person or device, or need extra time with bed, chair, or whe elchair transfers? Yes. TRANSFERS: BED, CHAIR, WHEELCHAIR - STEP 2: Does the patient require the assistance of a helper? No. Patient only requires an assistive device fo r bed, chair, wheelchair transfers such as a sliding board, grab bar, or brace, OR s/he takes more th an reasonable time, OR there is a safety concern when s/he performs the transfers TRANSFERS: BED, CHAIR, WHEELCHAIR - SCORE: 6-ANIYA TRANSFERS: TOILET: TRANSFERS: TOILET - STEP 1: Does the patient require the assistance of a person or device, or need extra time with toilet transfe rs? Yes. TRANSFERS: TOILET - STEP 2: Does the patient require the assistance of a helper? No. Patient only requires an assistive device winslow ch as a grab bar or special seat, OR s/he takes more than reasonable time to perform toilet transfers , OR there is a safety concern when s/he performs toilet transfers. TRANSFERS: TOILET - SCORE: 6-ANIYA TRANSFERS: SHOWER: Activity did not occur on this shift TRANSFERS: SHOWER - SCORE: 0-UNK TRANSFERS: TUB: Activity did not occur on this shift TRANSFERS: TUB - SCORE: 0-UNK LOCOMOTION: WALK: LOCOMOTION: WALK - STEP 1: Does the patient need help from a person or device, or need extra time to walk 150 feet? No. LOCOMOTION: WALK - STEP 2: Does the patient need an assistive device (such as an orthosis, prosthesis, crutches, or walker) to g o 150 feet, OR does s/he take more than reasonable time, OR is there a concern for safety? Yes, the p atient needs an assistive device LOCOMOTION: WALK - SCORE: 6-ANIYA LOCOMOTION: WHEELCHAIR: LOCOMOTION: WHEELCHAIR - STEP 1: Does the patient need help to go 150 feet in a wheelchair? No. LOCOMOTION: WHEELCHAIR - SCORE: 6-ANIYA LOCOMOTION: STAIRS: Activity did not occur on this shift LOCOMOTION: STAIRS - SCORE: 0-UNK COMPREHENSION: COMPREHENSION - SCORE: 0-UNK EXPRESSION EXPRESSION - SCORE: 0-UNK SOCIAL INTERACTION: SOCIAL INTERACTION - SCORE: 0-UNK PROBLEM SOLVING: PROBLEM SOLVING - SCORE: 0-UNK MEMORY: MEMORY - SCORE: 0-UNK SIGNATURE PANEL: The following modified sections: Transfers: Bed, Chair, Wheelchair - Score, Transfers: Toilet - Score , Locomotion: Walk - Score, Locomotion: Wheelchair - Score, Locomotion: Stairs - Score were [chris glover] signed by Melyssa Knapp PTA on FriDec 07 2018 11:23:18 GMT-0500 (Central Daylight Time)
--- NOTE | 2018-12-07 13:37 | FAST ---
SHIFT START DATE/TIME: 12/07/2018 07:00 (CDT) SHIFT END DATE/TIME: 12/07/2018 19:00 (CDT) NAME YUMIKO NAVARRO DATE OF : 1950 DATE OF ADMISSION: 11/26/2018 19:02 (CDT) PHONE: AGE: 68 N# [id number] GENDER: Male ENCOUNTER PHYSICIAN: Dr. Dash Hernandez M.D. 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 EATING: EATING - STEP 1: Does the patient require the assistance of a person or device, or need extra time when eating? Yes. EATING - STEP 2: Does the patient require the assistance of a helper? No, patient only requires an assistive device, O R s/he takes more than reasonable time to eat, OR there is a safety concern, OR s/he requires modifie d food consistency EATING - SCORE: 6-ANIYA GROOMING: Comb/brush hair Oral care Wash, rinse, and dry face Wash, rinse, and dry hands GROOMING - STEP 1: Does the patient require the assistance of a person or device, or need extra time when grooming? Yes. GROOMING - STEP 2: Does the patient require the assistance of a helper? No. The patient only requires an assistive devic e, OR takes more than reasonable time to groom, OR there is a concern for safety as the patient groom s GROOMING - SCORE: 6-ANIYA BATHING: Activity did not occur on this shift BATHING - SCORE: 0-UNK DRESSING - UPPER BODY: Activity did not occur on this shift ARTICLES SCORE Total number of steps: 0 DRESSING - UPPER BODY - SCORE: 0-UNK DRESSING - LOWER BODY: Activity did not occur on this shift ARTICLES SCORE Total number of steps: 0 DRESSING - LOWER BODY - SCORE: 0-UNK TOILETING: TOILETING - STEP 1: Does the patient require the assistance of a person or device, or need extra time with toileting? Yes . TOILETING - STEP 2: Does the patient require the assistance of a helper? Yes. TOILETING - STEP 3: How much assistance does the patient require from the helper? Hands-on assistance from the helper TOILETING - STEP 4: Of the 3 tasks: 1) Adjusting clothing prior to use, 2) Cleansing of perineal area, 3) Adjusting clot alla after use; How many tasks does the patient perform WITHOUT assistance of the helper? Two tasks TOILETING - SCORE: 3-MOD BLADDER MANAGEMENT: BLADDER MANAGEMENT - STEP 1: Does the patient control the bladder completely and intentionally without equipment or devices or med ications, and is always continent? No. BLADDER MANAGEMENT - STEP 2: Does the patient require the assistance of a helper? No, patient requires and independently uses an a ssistive device, such as a urinal, bedpan, bedside commode, catheter, absorbent pad, or collecting de vice BLADDER MANAGEMENT - SCORE: 6-ANIYA BOWEL MANAGEMENT: Activity did not occur on this shift BOWEL MANAGEMENT - SCORE: 7-IND TRANSFERS: BED, CHAIR, WHEELCHAIR: TRANSFERS: BED, CHAIR, WHEELCHAIR - STEP 1: Does the patient require assistance of a person or device, or need extra time with bed, chair, or whe elchair transfers? Yes. TRANSFERS: BED, CHAIR, WHEELCHAIR - STEP 2: Does the patient require the assistance of a helper? Yes. TRANSFERS: BED, CHAIR, WHEELCHAIR - STEP 3: How much assistance does the patient require from the helper? Steadying/guiding assistance TRANSFERS: BED, CHAIR, WHEELCHAIR - SCORE: 4-MIN TRANSFERS: TOILET: TRANSFERS: TOILET - STEP 1: Does the patient require the assistance of a person or device, or need extra time with toilet transfe rs? Yes. TRANSFERS: TOILET - STEP 2: Does the patient require the assistance of a helper? Yes. TRANSFERS: TOILET - STEP 3: How much assistance does the patient require from the helper? Only supervision, cuing, coaxing, OR he lp to set out transfer equipment or to lock brakes and/or lift foot rests TRANSFERS: TOILET - SCORE: 5-SUP TRANSFERS: SHOWER: Activity did not occur on this shift TRANSFERS: SHOWER - SCORE: 0-UNK TRANSFERS: TUB: Activity did not occur on this shift TRANSFERS: TUB - SCORE: 0-UNK LOCOMOTION: WALK: Activity did not occur on this shift LOCOMOTION: WALK - SCORE: 0-UNK LOCOMOTION: WHEELCHAIR: Activity did not occur on this shift LOCOMOTION: WHEELCHAIR - SCORE: 0-UNK COMPREHENSION: COMPREHENSION: TYPE: Both COMPREHENSION - STEP 1: Does the patient require help from a person or device, or need extra time to understand complex and a bstract ideas (such as current events, finances, discharge planning, medical issues, relationships, e tc)? No. COMPREHENSION - STEP 2: Does the patient need extra time, require an assistive device (such as glasses for visual comprehensi on or a hearing aid for auditory comprehension) or does s/he have mild difficulty understanding compl ex and abstract information? No. COMPREHENSION - SCORE: 7-IND EXPRESSION EXPRESSION: TYPE: Both EXPRESSION - STEP 1: Does the patient require help from a person or device, or need extra time expressing complex and abst ract ideas (such as current events, finances, discharge planning, medical issues, relationships, etc) ? Yes. EXPRESSION - STEP 2: Does the patient require help to express basic necessities or ideas (such as hunger, thirst, sleep, s afety, daily schedule, room location, or discomfort) half or more of the time? No. EXPRESSION - STEP 3: How often does the patient need help to express directions and conversation about basic needs? Less t salazar 10% of the time EXPRESSION - SCORE: 5-SUP SOCIAL INTERACTION: SOCIAL INTERACTION - STEP 1: Does the patient require a helper to interact with others in social and therapeutic situations? No. SOCIAL INTERACTION - STEP 2: Does the patient need extra time in social situations, OR does s/he interact with staff, other patien ts, and family members ONLY in structured environments, OR does s/he require medication for social in teraction? Yes, patient needs extra time SOCIAL INTERACTION - SCORE: 6-ANIYA PROBLEM SOLVING: PROBLEM SOLVING - STEP 1: Does the patient need help from a person or device, or need extra time to solve complex problems such as managing a checking account or confronting interpersonal problems? No. PROBLEM SOLVING - STEP 2: Does the patient require extra time to make decisions or solve problems, OR does s/he have slight dif ficulty reading, initiating, or self-correcting in unfamiliar situations? Yes, patient needs extra ti me. PROBLEM SOLVING - SCORE: 6-ANIYA MEMORY: MEMORY - STEP 1: Does the patient need help from a person or device, or need extra time to remember frequently encount ered people, daily routines, and executing requests? No. MEMORY - STEP 2: Does the patient have slight difficulty recognizing frequently encountered people, daily routines, or executing requests without the need for repetition or using self-initiated or environmental cues to remember? Yes. MEMORY - SCORE: 6-ANIYA SIGNATURE PANEL: The following modified sections: Eating - Score, Grooming - Score, Bathing - Score, Dressing - Upper Body - Score, Dressing - Lower Body - Score, Toileting - Score, Bladder Management - Score, Bowel Man agement - Score, Transfers: Bed, Chair, Wheelchair - Score, Transfers: Toilet - Score, Transfers: Cammie wer - Score, Transfers: Tub - Score, Locomotion: Walk - Score, Locomotion: Wheelchair - Score, Compre hension - Score, Expression - Score, Social Interaction - Score, Problem Solving - Score, Memory - Sc ore were [electronically] signed by Vance Pacheco on FriDec 07 2018 13:35:24 GMT-0500 (Central Daylight Time)
[2018-12-07] MEDS: HYDROCODONE/APAP 5/325 MG TAB PO PRN (20:58)
[2018-12-07] MEDS: ATORVASTATIN 80 MG TAB PO SCH (20:59)
[2018-12-07] MEDS: DOCUSATE NA/SENNA CONC 1 TAB PO SCH (21:00)
--- NOTE | 2018-12-07 21:37 | P.PN ---
Subjective Date of Service: 12/07/18 Chief Complaint: NO PAIN, NO FEVER. FEELS WELL. Subjective: Improving HE FEELS WELL, HE HAS NO PAIN, NO FEVER OR CHILLS. NO NEW ISSUES. DOCTOR FROM [facility] CALLED AND WILL SEE HIM IN AM FOR EVAL. SUGGESTED IV ABX, BID DRESSING. NO DERBIDEMENT DONE. MR NAVARRO WENT TO [facility] AND WILL GO BACK AGAIN IN ONE WEEK. HE FEELS WELL. PER RN THE ULCER IS NOT SMELLING ANY LONGER. NO PAIN. MR. NAVARRO IS DOING WELL. HE HAS NO PAIN. HE HAS CLINICALLY IMPROVED. HE WILL SEE SURGEON IN AM AGAIN. Review of Systems 10-point ROS is otherwise unremarkable Physical Examination - Vital Signs Temperature: 97.7 F Blood Pressure: 117/56 Pulse: 73 Respirations: 16 Pulse Ox (%): 98 - Physical Exam General: Alert, In no apparent distress HEENT: Atraumatic, PERRLA, EOMI Neck: Supple, JVD not distended Respiratory: Clear to auscultation bilaterally, Normal air movement Cardiovascular: Regular rate/rhythm, Normal S1 S2 Gastrointestinal: Normal bowel sounds, No tenderness Musculoskeletal: No tenderness Integumentary: No rashes, Other (RIGHT FOOT AMPUTEE) Neurological: Normal speech, Normal tone, Normal affect Lymphatics: No axilla or inguinal lymphadenopathy - Studies Microbiology Data (last 24 hrs): 12/06/18 13:40 Wound - Right Foot Gram Stain - Final Medications List Reviewed: Yes Assessment And Plan - Current Problems (Diagnosis) (1) PVD (peripheral vascular disease) Current Visit: Yes Status: Acute Plan: SP FOREFOOT AMPUTATION. STABLE. PT NOW. (2) Nontraumatic amputation of right foot Current Visit: Yes Status: Acute Plan: ABOVE. HP. SED RATE CRP MRI IN AM. TALKED TO [facility]. (3) Diabetes Current Visit: Yes Status: Chronic Plan: DIABETES- STABLE BUT WITH SMOKING HE WILL GET COMPLICATIONS. HE WAS AWARE OF RISKS BEFORE. RESUME MEDS CHECK A1C AND LDL. WILL CHECK IN AM. DRESSING DONE ALREADY. STABLE ON ABX Qualifiers: Diabetes mellitus type: type 2 Diabetes mellitus complication status: with circulatory complication Diabetes mellitus complication detail: with peripheral angiopathy with gangrene (4) Amputation stump infection Current Visit: Yes Status: Acute Plan: IT SEEMS LIKE WOUND IS NOT HEALING AND HAS INFECTION WITH NECROTIC NON HEALING WOUND. HE MAY NEED HIGHER AMPUTATION AT [facility] THIS ULCER MAY NOT HEAL WITH YEARS OF SMOKING AND RELATED PVD. CULTURES HAVE BEEN SENT. ZOSYN STARTED. IV. DR. CHRISTA CALDERÓN HAS BEEN CALLED AND LEFT MESSAGE TO CALL BACK. [phone] HE NEEDS TO BE SENT BACK TO [facility]. DR. CALDERÓN CALLED. HE WILL SEE HIM IN AM. IV ABX CONTINUE. I LEAVE MRI FOR [facility]. HE WILL NEED DEBRIDEMENT BY THEM. DR. CALDERÓN IS MANAGING THIS. I AM AFRAID OF INFECTION BUT HE IS NOT SURE. HE ADVISED CONTINUATION OF ABX IV. PROTEUS FROM WOUND. RESUME ZOSYN. I REMOVED SOME MORE PUS TODAY JUST BY PRESSURE. HE WILL FU WITH DR. CALDERÓN. FURTHER DEBRIDMENT MAY BE NEEDED- BUT DECISION PER DR. CALDERÓN. HE WILL SEE DR. CALDERÓN IN AM.
--- NOTE | 2018-12-07 22:36 | R.PN ---
ENCOUNTER DATE AND TIME: 12/07/2018 22:32 (CDT) NAME YUMIKO NAVARRO DATE OF : 1950 DATE OF ADMISSION: 11/26/2018 19:02 (CDT) SEVERE PERIPHERAL ARTERY DISEASECHIEF COMPLAINT: Severe peripheral arterial disease with osteomyelitis SUBJECTIVE: Pt denied any depression. Pt denied any Shortness of Breath. Ambulated 228' with modified independence using a rolling walker. Self-propelled wheelchair 500' with modified independence. Up and down 10 steps with contact guard assistance. Hgb 9.2, glucose 120 to 151, HgA1c 6.8, calcium 8.4. VITAL SIGNS Temperature: 97.8 F SBP/DBP: 117/56 Pulse: 73 Resp: 14 MEDICATION ALLERGIES: No Known Drug Allergies (NKDA) ENVIRONMENTAL ALLERGIES: None Known - Substance Allergies None Known - Other Allergies None Known CONSULT: Perform Consult Certified Prosthetic for prosthesis construction NURSING: - Shower allowing shower - Lab Results blood Sugar Check ACHS PRECAUTIONS: - Weight Bearing Precaution NWB right LE ACTIVITIES OOB only with supervision THERAPIES: - Orthotics/Prosthetics Prosthetic Evaluation. - Occupational Therapy Evaluate and Treat. - Physical Therapy Evaluate and Treat. PHYSICAL EXAM - Gen Alert and awake Lying in bed No apparent distress Oriented to: person, time, and place - Skin Right foot bandage in place with good hemostasis. No abnormalities - Eyes No abnormalities - ENMT No abnormalities - Neck No abnormalities - CVS RRR - Chest No abnormalities - Abd + bowel sounds - GI nondistended Deferred - No abnormalities - Ext No significant edema - MSK 4+/5 weakness in both lower extremities. - Neuro No focal deficits - Psych No abnormalities ASSESSMENT: Pt. is a 68 yo Right-handed white male.On 11/04/2018 he was admitted to [facility] with diagnosis SEVERE PE RIPHERAL ARTERY DISEASE.His impairment category is Amputation of Limb 05 - Other Amputation (05.9).P re-morbidly, Pt. was independent/mod-I in Self-Care, Sphincter Control, Transfers Control, Locomotion , Communication, and Social Cognition; and he had good Sphincter Control.Currently, he has deficits o f Transfers Control, Locomotion, Endurance, Balance, Safety Awareness, and Self-Care.Pt. is now refer red to [facility] for acute in-patient rehabilitation in order to maximize pat ient's functional independence in activities of daily living, strength, ROM, and mobility.- Rehab Goa l Patient has realistic goal of being discharged at assistance level 6-Rian to reside at Home with Fam jenn/Relatives. MDM/PLAN: - Physical Therapy Gait dysfunction - to improve, our physical therapists will perform initial evaluation of pt's statu s upon admission and devise an individualized program for Gait Training, and Wheel Chair mobility Inability to transfer - to improve, our physical therapists will perform initial evaluation of pt's status upon admission and devise an individualized program for Bed mobility Need for home safety evaluation - to improve, our physical therapists will perform initial evaluatio n of pt's status upon admission and devise an individualized program for Home Evaluation Need in caregiver upon discharge - to improve, our physical therapists will perform initial evaluati on of pt's status upon admission and devise an individualized program for Caregiver Training Edema - to improve, our physical therapists will perform initial evaluation of pt's status upon admi ssion and devise an individualized program for Elevation Training, and Lymphedema Therapy New precaution - to improve, our physical therapists will perform initial evaluation of pt's status upon admission and devise an individualized program for Patient precaution education Poor balance - to improve, our physical therapists will perform initial evaluation of pt's status up on admission and devise an individualized program for Balance Training Poor endurance - to improve, our physical therapists will perform initial evaluation of pt's status upon admission and devise an individualized program for Endurance Training Weakness - to improve, our physical therapists will perform initial evaluation of pt's status upon a dmission and devise an individualized program for Aquatic Therapy, Neuromuscular Reeducation, and Str engthening Achieving independence - to improve, our physical therapists will perform initial evaluation of pt's status upon admission and devise an individualized program for Community Reintegration Activities - Occupational Therapy ADL deficits - to improve, our occupation therapists will perform initial evaluation of pt's status upon admission and devise an individualized program for Bathing, Bed mobility, Community Reintegratio n, Cooking, Dressing, Eating, Fine Motor Skills, Grooming, Homemaking, Kitchen Mobility, Laundry, Pat ient Education, Safety Awareness, Splinting - Positioning, Transfers(Toilet, Tub, Shower), and Wheel Chair Management Need for long term care social worker - to improve, our occupation therapists will perform initial evaluation of pt's status upon admission and devise an individualized program for Caregiver Training Weakness - to improve, our occupation therapists will perform initial evaluation of pt's status upon admission and devise an individualized program for Aquatic Therapy, Balance, Endurance, UE ROM, and UE strengthening - Diet Type Continue ADA 1800 - Diet - Liquid Texture Continue Regular - Tube Feed Continue N/A - Lab Results blood Sugar Check ACHS - Weight Bearing Precaution NWB right LE - N/A Perform Consult Certified Prosthetic for prosthesis construction - Diet - Solid Texture Continue Regular - Shower allowing shower FUNCTIONAL STATUS: UPDATED AT WEEKLY TEAM CONFERENCE - Bladder Same accident frequency: 7-Ind - No accidents in the past 7 days - Bowel Same accident frequency: 7-Ind - No accidents in the past 7 days - Walking Same score based on distance walked: 1(<=50ft) - Wheelchair Same score based on distance traveled: 0(N/A) FUNCTIONAL STATUS: - Self-Care A. Eating Ind B. Grooming sup C. Bathing sup D. Dressing - Upper sup E. Dressing - Lower sup F. Toileting sup - Sphincter Control G: Bladder control Ind H: Bowel control Ind - Transfers Control I. Bed/Chair/Wheelchair Brigid J. Toilet Brigid K. Tub/Shower ADNO - Locomotion L. Walk/Wheelchair (C) Brigid L. Walk/Wheelchair (W) Brigid M. Stairs ADNO - Communication N. Comprehension (B) Ind O. Expression (B) Ind - Social Cognition P. Social Interaction Ind Q. Problem Solving Ind R. Memory Ind - Endurance Fair - Balance Fair - Safety Awareness Fair [facility]: Transfers Control, Locomotion, Endurance, Balance, Safety Awareness, and Self-Care SIGNATURE PANEL: (CDT)
[2018-12-08] MEDS: PIPER/TAZO/NS 3.375gm 3.375 GM/100 ML BAG IV SCH ×3 (00:25→17:03)
--- NOTE | 2018-12-08 00:31 | FAST ---
SHIFT START DATE/TIME: 12/07/2018 19:00 (CDT) SHIFT END DATE/TIME: 12/08/2018 07:00 (CDT) NAME YUMIKO NAVARRO DATE OF : 1950 DATE OF ADMISSION: 11/26/2018 19:02 (CDT) PHONE: AGE: 68 N# [id number] GENDER: Male ENCOUNTER PHYSICIAN: Dr. Dash Hernandez M.D. 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 EATING: Activity did not occur on this shift EATING - SCORE: 0-UNK GROOMING: Activity did not occur on this shift GROOMING - SCORE: 0-UNK BATHING: Activity did not occur on this shift BATHING - SCORE: 0-UNK DRESSING - UPPER BODY: Patient is not dressing in public clothing ARTICLES SCORE Total number of steps: 0 DRESSING - UPPER BODY - SCORE: 0-UNK DRESSING - LOWER BODY: Patient is not dressing in public clothing ARTICLES SCORE Total number of steps: 0 DRESSING - LOWER BODY - SCORE: 0-UNK TOILETING: TOILETING - STEP 1: Does the patient require the assistance of a person or device, or need extra time with toileting? Yes . TOILETING - STEP 2: Does the patient require the assistance of a helper? Yes. TOILETING - STEP 3: How much assistance does the patient require from the helper? Only supervision TOILETING - SCORE: 5-SUP BLADDER MANAGEMENT: BLADDER MANAGEMENT - STEP 1: Does the patient control the bladder completely and intentionally without equipment or devices or med ications, and is always continent? No. BLADDER MANAGEMENT - STEP 2: Does the patient require the assistance of a helper? Yes. BLADDER MANAGEMENT - STEP 3: How much assistance does the patient require from the helper? Only set-up of equipment - such as plac ing it within reach of the patient or emptying a device - to maintain either satisfactory voiding pat tern or managing an external device, such as an absorbent pad, ileal device, or catheter BLADDER MANAGEMENT - SCORE: 5-SUP BOWEL MANAGEMENT: BOWEL MANAGEMENT - STEP 1: Does the patient control bowels completely and intentionally without equipment devices or medications AND is always continent? No. BOWEL MANAGEMENT - STEP 2: Does the patient require the assistance of a helper? No, patient requires medication for control such as stool softeners, suppositories, laxatives, enemas, or OTC medications BOWEL MANAGEMENT - SCORE: 6-ANIYA TRANSFERS: BED, CHAIR, WHEELCHAIR: TRANSFERS: BED, CHAIR, WHEELCHAIR - STEP 1: Does the patient require assistance of a person or device, or need extra time with bed, chair, or whe elchair transfers? Yes. TRANSFERS: BED, CHAIR, WHEELCHAIR - STEP 2: Does the patient require the assistance of a helper? Yes. TRANSFERS: BED, CHAIR, WHEELCHAIR - STEP 3: How much assistance does the patient require from the helper? Only supervision TRANSFERS: BED, CHAIR, WHEELCHAIR - SCORE: 5-SUP TRANSFERS: TOILET: TRANSFERS: TOILET - STEP 1: Does the patient require the assistance of a person or device, or need extra time with toilet transfe rs? Yes. TRANSFERS: TOILET - STEP 2: Does the patient require the assistance of a helper? No. Patient only requires an assistive device winslow ch as a grab bar or special seat, OR s/he takes more than reasonable time to perform toilet transfers , OR there is a safety concern when s/he performs toilet transfers. TRANSFERS: TOILET - SCORE: 6-ANIYA TRANSFERS: SHOWER: Activity did not occur on this shift TRANSFERS: SHOWER - SCORE: 0-UNK TRANSFERS: TUB: Activity did not occur on this shift TRANSFERS: TUB - SCORE: 0-UNK LOCOMOTION: WALK: Activity did not occur on this shift LOCOMOTION: WALK - SCORE: 0-UNK LOCOMOTION: WHEELCHAIR: Activity did not occur on this shift LOCOMOTION: WHEELCHAIR - SCORE: 0-UNK COMPREHENSION: COMPREHENSION: TYPE: Both COMPREHENSION - STEP 1: Does the patient require help from a person or device, or need extra time to understand complex and a bstract ideas (such as current events, finances, discharge planning, medical issues, relationships, e tc)? No. COMPREHENSION - STEP 2: Does the patient need extra time, require an assistive device (such as glasses for visual comprehensi on or a hearing aid for auditory comprehension) or does s/he have mild difficulty understanding compl ex and abstract information? Yes. COMPREHENSION - SCORE: 6-ANIYA EXPRESSION EXPRESSION: TYPE: Both EXPRESSION - STEP 1: Does the patient require help from a person or device, or need extra time expressing complex and abst ract ideas (such as current events, finances, discharge planning, medical issues, relationships, etc) ? No. EXPRESSION - STEP 2: Does the patient need extra time, require an assistive device (such as augmentive communication syste m or a communication board), OR does s/he have mild difficulty expressing complex and abstract ideas (including mild dysarthria or mild word-find problems)? No. EXPRESSION - SCORE: 7-IND SOCIAL INTERACTION: SOCIAL INTERACTION - STEP 1: Does the patient require a helper to interact with others in social and therapeutic situations? No. SOCIAL INTERACTION - STEP 2: Does the patient need extra time in social situations, OR does s/he interact with staff, other patien ts, and family members ONLY in structured environments, OR does s/he require medication for social in teraction? Yes, patient needs extra time SOCIAL INTERACTION - SCORE: 6-ANIYA PROBLEM SOLVING: PROBLEM SOLVING - STEP 1: Does the patient need help from a person or device, or need extra time to solve complex problems such as managing a checking account or confronting interpersonal problems? No. PROBLEM SOLVING - STEP 2: Does the patient require extra time to make decisions or solve problems, OR does s/he have slight dif ficulty reading, initiating, or self-correcting in unfamiliar situations? Yes, patient needs extra ti me. PROBLEM SOLVING - SCORE: 6-ANIYA MEMORY: MEMORY - STEP 1: Does the patient need help from a person or device, or need extra time to remember frequently encount ered people, daily routines, and executing requests? No. MEMORY - STEP 2: Does the patient have slight difficulty recognizing frequently encountered people, daily routines, or executing requests without the need for repetition or using self-initiated or environmental cues to remember? Yes. MEMORY - SCORE: 6-ANIYA SIGNATURE PANEL: The following modified sections: Eating - Score, Grooming - Score, Dressing - Upper Body - Score, Florentin ssing - Lower Body - Score, Toileting - Score, Bladder Management - Score, Bowel Management - Score, Transfers: Bed, Chair, Wheelchair - Score, Transfers: Toilet - Score, Transfers: Shower - Score, Gamble sfers: Tub - Score, Locomotion: Walk - Score, Locomotion: Wheelchair - Score, Comprehension - Score, Expression - Score, Social Interaction - Score, Problem Solving - Score, Memory - Score were [electro nically] signed by Edilma Shah CNA on FriDec 08 2018 00:29:43 GMT-0500 (Central Daylight Time)
[2018-12-08] MEDS: FE SULF/FA/VIT B COMP & C TAB PO SCH (06:49)
[2018-12-08] MEDS: CRANBERRY FRUIT EXTRACT 200 MG CAP PO SCH ×2 (06:49→20:39)
[2018-12-08] MEDS: FERROUS SULFATE 325 MG TAB PO SCH (06:49)
[2018-12-08] MEDS: APIXABAN 2.5 MG TABLET PO SCH ×2 (06:50→20:39)
[2018-12-08] MEDS: METFORMIN HCL 500 MG TAB PO SCH (06:50)
[2018-12-08] MEDS: CLOPIDOGREL 75 MG TABLET PO SCH (06:50)
[2018-12-08] MEDS: INSULIN -REGULAR HUMAN 50 UNIT/0.5 ML ML SQ SCH ×4 (06:50→20:39)
[2018-12-08] MEDS: PROMOD 30 ML DOSE PO SCH ×2 (08:00→20:39)
[2018-12-08] MEDS: COLLAGENASE 30 GM OINTMENT TOP SCH (08:00)
[2018-12-08] MEDS: INSULIN GLARGINE 100 UNITS/ML SQ SCH (08:12)
[2018-12-08] MEDS: INSULIN LISPRO 100 UNIT/1 ML SQ SCH ×3 (08:12→17:03)
--- NOTE | 2018-12-08 14:08 | FAST ---
SHIFT START DATE/TIME: 12/08/2018 07:00 (CDT) SHIFT END DATE/TIME: 12/08/2018 19:00 (CDT) NAME YUMIKO NAVARRO DATE OF : 1950 DATE OF ADMISSION: 11/26/2018 19:02 (CDT) PHONE: AGE: 68 N# [id number] GENDER: Male ENCOUNTER PHYSICIAN: Dr. Dash Hernandez M.D. 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 EATING: EATING - STEP 1: Does the patient require the assistance of a person or device, or need extra time when eating? Yes. EATING - STEP 2: Does the patient require the assistance of a helper? Yes. EATING - STEP 3: Does the patient perform half or more of the eating tasks? Yes. EATING - STEP 4: Does the patient need only supervision, cuing, coaxing OR help to apply an orthosis OR help to cut fo od, open containers, pour liquids, or butter bread? Yes. EATING - SCORE: 5-SUP GROOMING: Comb/brush hair Oral care Wash, rinse, and dry face Wash, rinse, and dry hands GROOMING - STEP 1: Does the patient require the assistance of a person or device, or need extra time when grooming? Yes. GROOMING - STEP 2: Does the patient require the assistance of a helper? Yes. GROOMING - STEP 3: How much assistance does the patient require from the helper? Only prior equipment preparation/set up from the helper GROOMING - SCORE: 5-SUP BATHING: Activity did not occur on this shift BATHING - SCORE: 0-UNK DRESSING - UPPER BODY: Bra (three steps) T-shirt/pullover shirt (four steps) ARTICLES SCORE Total number of steps: 7 DRESSING - UPPER BODY - STEP 1: Does the patient require help from a person or device, or need extra time when dressing above the tera st? Yes. DRESSING - UPPER BODY - STEP 2: Does the patient require the assistance of a helper? Yes. DRESSING - UPPER BODY - STEP 3: Does the helper touch the patient while dressing? No. DRESSING - UPPER BODY - SCORE: 5-SUP DRESSING - LOWER BODY: Elastic waist pants (three steps) Sock - Left foot (one step) Sock - Right foot (one step) Underwear (three steps) ARTICLES SCORE Total number of steps: 8 DRESSING - LOWER BODY - STEP 1: Does the patient require help from a person or device, or need extra time when dressing below the tera st? Yes. DRESSING - LOWER BODY - STEP 2: Does the patient require the assistance of a helper? Yes. DRESSING - LOWER BODY - STEP 3: Does the helper touch the patient while dressing? No. DRESSING - LOWER BODY - SCORE: 5-SUP TOILETING: TOILETING - STEP 1: Does the patient require the assistance of a person or device, or need extra time with toileting? Yes . TOILETING - STEP 2: Does the patient require the assistance of a helper? Yes. TOILETING - STEP 3: How much assistance does the patient require from the helper? Hands-on assistance from the helper TOILETING - STEP 4: Of the 3 tasks: 1) Adjusting clothing prior to use, 2) Cleansing of perineal area, 3) Adjusting clot alla after use; How many tasks does the patient perform WITHOUT assistance of the helper? Three tasks with steadying assistance from the helper TOILETING - SCORE: 4-MIN BLADDER MANAGEMENT: BLADDER MANAGEMENT - STEP 1: Does the patient control the bladder completely and intentionally without equipment or devices or med ications, and is always continent? Yes. BLADDER MANAGEMENT - SCORE: 7-IND BLADDER MANAGEMENT - FREQUENCY OF ACCIDENTS: BLADDER MANAGEMENT(FA) - STEP 1: How many accidents has the patient had during the current shift? 0 BOWEL MANAGEMENT: [place] removes incontinent device (depends, pull ups, etc.); cleans the patient after accident / inco ntinent episode; and, applies new device (depends, pull-ups, padding, etc.). BOWEL MANAGEMENT - SCORE: 1-DEP BOWEL MANAGEMENT - FREQUENCY OF ACCIDENTS: BOWEL MANAGEMENT(FA) - STEP 1: How many accidents has the patient had during the current shift? 0 TRANSFERS: BED, CHAIR, WHEELCHAIR: TRANSFERS: BED, CHAIR, WHEELCHAIR - STEP 1: Does the patient require assistance of a person or device, or need extra time with bed, chair, or whe elchair transfers? Yes. TRANSFERS: BED, CHAIR, WHEELCHAIR - STEP 2: Does the patient require the assistance of a helper? Yes. TRANSFERS: BED, CHAIR, WHEELCHAIR - STEP 3: How much assistance does the patient require from the helper? Lifting of the legs TRANSFERS: BED, CHAIR, WHEELCHAIR - STEP 4: How many legs does the patient require the helper to lift? both legs TRANSFERS: BED, CHAIR, WHEELCHAIR - SCORE: 3-MOD TRANSFERS: TOILET: TRANSFERS: TOILET - STEP 1: Does the patient require the assistance of a person or device, or need extra time with toilet transfe rs? Yes. TRANSFERS: TOILET - STEP 2: Does the patient require the assistance of a helper? Yes. TRANSFERS: TOILET - STEP 3: How much assistance does the patient require from the helper? Patient performs half or more of the tr ansferring tasks TRANSFERS: TOILET - STEP 4: Does the patient need only incidental help such as contact guard or steadying during toilet transfer? Yes. TRANSFERS: TOILET - SCORE: 4-MIN TRANSFERS: SHOWER: Activity did not occur on this shift TRANSFERS: SHOWER - SCORE: 0-UNK TRANSFERS: TUB: Activity did not occur on this shift TRANSFERS: TUB - SCORE: 0-UNK LOCOMOTION: WALK: Activity did not occur on this shift LOCOMOTION: WALK - SCORE: 0-UNK LOCOMOTION: WHEELCHAIR: LOCOMOTION: WHEELCHAIR - STEP 1: Does the patient need help to go 150 feet in a wheelchair? Yes. LOCOMOTION: WHEELCHAIR - STEP 2: How much assistance does the patient need from the helper? Only incidental help such as around corner s or over thresholds LOCOMOTION: WHEELCHAIR - SCORE: 4-MIN COMPREHENSION: COMPREHENSION: TYPE: Both COMPREHENSION - STEP 1: Does the patient require help from a person or device, or need extra time to understand complex and a bstract ideas (such as current events, finances, discharge planning, medical issues, relationships, e tc)? No. COMPREHENSION - STEP 2: Does the patient need extra time, require an assistive device (such as glasses for visual comprehensi on or a hearing aid for auditory comprehension) or does s/he have mild difficulty understanding compl ex and abstract information? No. COMPREHENSION - SCORE: 7-IND EXPRESSION EXPRESSION: TYPE: Both EXPRESSION - STEP 1: Does the patient require help from a person or device, or need extra time expressing complex and abst ract ideas (such as current events, finances, discharge planning, medical issues, relationships, etc) ? No. EXPRESSION - STEP 2: Does the patient need extra time, require an assistive device (such as augmentive communication syste m or a communication board), OR does s/he have mild difficulty expressing complex and abstract ideas (including mild dysarthria or mild word-find problems)? No. EXPRESSION - SCORE: 7-IND SOCIAL INTERACTION: SOCIAL INTERACTION - STEP 1: Does the patient require a helper to interact with others in social and therapeutic situations? No. SOCIAL INTERACTION - STEP 2: Does the patient need extra time in social situations, OR does s/he interact with staff, other patien ts, and family members ONLY in structured environments, OR does s/he require medication for social in teraction? No. SOCIAL INTERACTION - SCORE: 7-IND PROBLEM SOLVING: PROBLEM SOLVING - STEP 1: Does the patient need help from a person or device, or need extra time to solve complex problems such as managing a checking account or confronting interpersonal problems? No. PROBLEM SOLVING - STEP 2: Does the patient require extra time to make decisions or solve problems, OR does s/he have slight dif ficulty reading, initiating, or self-correcting in unfamiliar situations? Yes, patient needs extra ti me. PROBLEM SOLVING - SCORE: 6-ANIYA MEMORY: MEMORY - STEP 1: Does the patient need help from a person or device, or need extra time to remember frequently encount ered people, daily routines, and executing requests? No. MEMORY - STEP 2: Does the patient have slight difficulty recognizing frequently encountered people, daily routines, or executing requests without the need for repetition or using self-initiated or environmental cues to remember? No. MEMORY - SCORE: 7-IND SIGNATURE PANEL: The following modified sections: Eating - Score, Grooming - Score, Bathing - Score, Dressing - Upper Body - Score, Dressing - Lower Body - Score, Toileting - Score, Bladder Management - Score, Bowel Man agement - Score, Transfers: Bed, Chair, Wheelchair - Score, Transfers: Toilet - Score, Transfers: Cammie wer - Score, Transfers: Tub - Score, Locomotion: Walk - Score, Locomotion: Wheelchair - Score, Compre hension - Score, Expression - Score, Social Interaction - Score, Problem Solving - Score, Memory - Sc ore were [electronically] signed by Cecilia Hernandez RN on FriDec 08 2018 14:07:32 GMT-0500 ([facility])
--- NOTE | 2018-12-08 18:08 | P.PN ---
Subjective Date of Service: 12/08/18 Chief Complaint: NO PAIN, NO FEVER. FEELS WELL. HE FEELS WELL, HE HAS NO PAIN, NO FEVER OR CHILLS. NO NEW ISSUES. DOCTOR FROM [facility] CALLED AND WILL SEE HIM IN AM FOR EVAL. SUGGESTED IV ABX, BID DRESSING. NO DERBIDEMENT DONE. MR NAVARRO WENT TO [facility] AND WILL GO BACK AGAIN IN ONE WEEK. HE FEELS WELL. PER RN THE [facility]LCER IS NOT SMELLING ANY LONGER. NO PAIN. MR. NAVARRO IS DOING WELL. HE HAS NO PAIN. HE HAS CLINICALLY IMPROVED. HE WILL SEE SURGEON IN AM AGAIN. HE WENT TO [facility] FOR VASCULAR MD VISIT. ADVISED ORAL ABX AFTER IV ZOSYN HERE AND START WET TO DRY DRESSING. Review of Systems 10-point ROS is otherwise unremarkable Physical Examination - Vital Signs Temperature: 97.7 F Blood Pressure: 117/56 Pulse: 73 Respirations: 16 Pulse Ox (%): 98 - Physical Exam General: Alert, In no apparent distress HEENT: Atraumatic, PERRLA, EOMI Neck: Supple, JVD not distended Respiratory: Clear to auscultation bilaterally, Normal air movement Cardiovascular: Regular rate/rhythm, Normal S1 S2 Gastrointestinal: Normal bowel sounds, No tenderness Musculoskeletal: No tenderness Integumentary: No rashes, Diabetic ulcer, Other Neurological: Normal speech, Normal tone, Normal affect Lymphatics: No axilla or inguinal lymphadenopathy - Studies Microbiology Data (last 24 hrs): 12/06/18 13:40 Wound - Right Foot Gram Stain - Final Medications List Reviewed: Yes Assessment And Plan - Current Problems (Diagnosis) (1) PVD (peripheral vascular disease) Current Visit: Yes Status: Acute Plan: SP FOREFOOT AMPUTATION. STABLE. PT NOW. (2) Nontraumatic amputation of right foot Current Visit: Yes Status: Acute Plan: ABOVE. HP. SED RATE CRP MRI IN AM. TALKED TO [facility]. (3) Diabetes Current Visit: Yes Status: Chronic Plan: DIABETES- STABLE BUT WITH SMOKING HE WILL GET COMPLICATIONS. HE WAS AWARE OF RISKS BEFORE. RESUME MEDS CHECK A1C AND LDL. WILL CHECK IN AM. DRESSING DONE ALREADY. STABLE ON ABX Qualifiers: Diabetes mellitus type: type 2 Diabetes mellitus complication status: with circulatory complication Diabetes mellitus complication detail: with peripheral angiopathy with gangrene (4) Amputation stump infection Current Visit: Yes Status: Acute Plan: IT SEEMS LIKE WOUND IS NOT HEALING AND HAS INFECTION WITH NECROTIC NON HEALING WOUND. HE MAY NEED HIGHER AMPUTATION AT A THIS [facility]ER MAY NOT HEAL WITH YEARS OF SMOKING AND RELATED PVD. CULTURES HAVE BEEN SENT. ZOSYN STARTED. IV. DR. CHRISTA CALDERÓN HAS BEEN CALLED AND LEFT MESSAGE TO CALL BACK. [phone] HE NEEDS TO BE SENT BACK TO [facility]. DR. CALDERÓN CALLED. HE WILL SEE HIM IN AM. IV ABX CONTINUE. I LEAVE MRI FOR [facility]. HE WILL NEED DEBRIDEMENT BY THEM. DR. CALDERÓN IS MANAGING THIS. I AM AFRAID OF INFECTION BUT HE IS NOT SURE. HE ADVISED CONTINUATION OF ABX IV. PROTEUS FROM WOUND. RESUME ZOSYN. I REMOVED SOME MORE PUS TODAY JUST BY PRESSURE. HE WILL FU WITH DR. CALDERÓN. FURTHER DEBRIDMENT MAY BE NEEDED- BUT DECISION PER DR. CALDERÓN. HE WILL SEE DR. CALDERÓN IN AM. MANAGED BY DR Tamar CALDERÓN. HE GAVE NEW ORDERS.
--- NOTE | 2018-12-08 18:58 | R.PN ---
ENCOUNTER DATE AND TIME: 12/08/2018 18:54 (CDT) NAME YUMIKO NAVARRO DATE OF : 1950 DATE OF ADMISSION: 11/26/2018 19:02 (CDT) SEVERE PERIPHERAL ARTERY DISEASECHIEF COMPLAINT: Severe peripheral arterial disease with osteomyelitis SUBJECTIVE: Pt denied any depression. Pt denied any Shortness of Breath. Ambulated 500' with modified independence using a rolling walker. Self-propelled wheelchair 500' with modified independence. Up and down 10 steps with contact guard assistance. Hgb 9.2, glucose 120 to 151, HgA1c 6.8, calcium 8.4. VITAL SIGNS Temperature: 97.8 F SBP/DBP: 117/56 Pulse: 73 Resp: 14 MEDICATION ALLERGIES: No Known Drug Allergies (NKDA) ENVIRONMENTAL ALLERGIES: None Known - Substance Allergies None Known - Other Allergies None Known CONSULT: Perform Consult Certified Prosthetic for prosthesis construction NURSING: - Shower allowing shower - Lab Results blood Sugar Check ACHS PRECAUTIONS: - Weight Bearing Precaution NWB right LE ACTIVITIES OOB only with supervision THERAPIES: - Orthotics/Prosthetics Prosthetic Evaluation. - Occupational Therapy Evaluate and Treat. - Physical Therapy Evaluate and Treat. PHYSICAL EXAM - Gen Alert and awake Lying in bed No apparent distress Oriented to: person, time, and place - Skin Right foot bandage in place with good hemostasis. No abnormalities - Eyes No abnormalities - ENMT No abnormalities - Neck No abnormalities - CVS RRR - Chest No abnormalities - Abd + bowel sounds - GI nondistended Deferred - No abnormalities - Ext No significant edema - MSK 4+/5 weakness in both lower extremities. - Neuro No focal deficits - Psych No abnormalities ASSESSMENT: Pt. 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 was independent/mod-I in Self-Care, Sphincter Control, Transfers Control, Locomotion , Communication, and Social Cognition; and he had good Sphincter Control.Currently, he has deficits o f Transfers Control, Locomotion, Endurance, Balance, Safety Awareness, and Self-Care.Pt. is now refer red to [facility] for acute in-patient rehabilitation in order to maximize pat ient's functional independence in activities of daily living, strength, ROM, and mobility.- Rehab Goa l Patient has realistic goal of being discharged at assistance level 6-Rian to reside at Home with Fam jenn/Relatives. MDM/PLAN: - Physical Therapy Gait dysfunction - to improve, our physical therapists will perform initial evaluation of pt's statu s upon admission and devise an individualized program for Gait Training, and Wheel Chair mobility Inability to transfer - to improve, our physical therapists will perform initial evaluation of pt's status upon admission and devise an individualized program for Bed mobility Need for home safety evaluation - to improve, our physical therapists will perform initial evaluatio n of pt's status upon admission and devise an individualized program for Home Evaluation Need in caregiver upon discharge - to improve, our physical therapists will perform initial evaluati on of pt's status upon admission and devise an individualized program for Caregiver Training Edema - to improve, our physical therapists will perform initial evaluation of pt's status upon admi ssion and devise an individualized program for Elevation Training, and Lymphedema Therapy New precaution - to improve, our physical therapists will perform initial evaluation of pt's status upon admission and devise an individualized program for Patient precaution education Poor balance - to improve, our physical therapists will perform initial evaluation of pt's status up on admission and devise an individualized program for Balance Training Poor endurance - to improve, our physical therapists will perform initial evaluation of pt's status upon admission and devise an individualized program for Endurance Training Weakness - to improve, our physical therapists will perform initial evaluation of pt's status upon a dmission and devise an individualized program for Aquatic Therapy, Neuromuscular Reeducation, and Str engthening Achieving independence - to improve, our physical therapists will perform initial evaluation of pt's status upon admission and devise an individualized program for Community Reintegration Activities - Occupational Therapy ADL deficits - to improve, our occupation therapists will perform initial evaluation of pt's status upon admission and devise an individualized program for Bathing, Bed mobility, Community Reintegratio n, Cooking, Dressing, Eating, Fine Motor Skills, Grooming, Homemaking, Kitchen Mobility, Laundry, Pat ient Education, Safety Awareness, Splinting - Positioning, Transfers(Toilet, Tub, Shower), and Wheel Chair Management Need for caregiver services home - to improve, our occupation therapists will perform initial evaluation of pt's status upon admission and devise an individualized program for Caregiver Training Weakness - to improve, our occupation therapists will perform initial evaluation of pt's status upon admission and devise an individualized program for Aquatic Therapy, Balance, Endurance, UE ROM, and UE strengthening - Diet Type Continue ADA 1800 - Diet - Liquid Texture Continue Regular - Tube Feed Continue N/A - Lab Results blood Sugar Check ACHS - Weight Bearing Precaution NWB right LE - N/A Perform Consult Certified Prosthetic for prosthesis construction - Diet - Solid Texture Continue Regular - Shower allowing shower FUNCTIONAL STATUS: UPDATED AT WEEKLY TEAM CONFERENCE - Bladder Same accident frequency: 7-Ind - No accidents in the past 7 days - Bowel Same accident frequency: 7-Ind - No accidents in the past 7 days - Walking Same score based on distance walked: 1(<=50ft) - Wheelchair Same score based on distance traveled: 0(N/A) FUNCTIONAL STATUS: - Self-Care A. Eating Ind B. Grooming sup C. Bathing sup D. Dressing - Upper sup E. Dressing - Lower sup F. Toileting sup - Sphincter Control G: Bladder control Ind H: Bowel control Ind - Transfers Control I. Bed/Chair/Wheelchair Brigid J. Toilet Brigid K. Tub/Shower ADNO - Locomotion L. Walk/Wheelchair (C) Brigid L. Walk/Wheelchair (W) Brigid M. Stairs ADNO - Communication N. Comprehension (B) Ind O. Expression (B) Ind - Social Cognition P. Social Interaction Ind Q. Problem Solving Ind R. Memory Ind - Endurance Fair - Balance Fair - Safety Awareness Fair [facility] DEFICITS: Transfers Control, Locomotion, Endurance, Balance, Safety Awareness, and Self-Care SIGNATURE PANEL: (CDT)
[2018-12-08] MEDS: ATORVASTATIN 80 MG TAB PO SCH (20:39)
[2018-12-08] MEDS: DOCUSATE NA/SENNA CONC 1 TAB PO SCH (20:39)
[2018-12-09] MEDS: PIPER/TAZO/NS 3.375gm 3.375 GM/100 ML BAG IV SCH ×3 (00:24→16:49)
--- NOTE | 2018-12-09 01:08 | FAST ---
SHIFT START DATE/TIME: 12/08/2018 19:00 (CDT) SHIFT END DATE/TIME: 12/09/2018 07:00 (CDT) NAME YUMIKO NAVARRO DATE OF : 1950 DATE OF ADMISSION: 11/26/2018 19:02 (CDT) PHONE: AGE: 68 N# [id number] GENDER: Male ENCOUNTER PHYSICIAN: Dr. Dash Hernandez M.D. 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 EATING: Activity did not occur on this shift EATING - SCORE: 0-UNK GROOMING: Activity did not occur on this shift GROOMING - SCORE: 0-UNK BATHING: Activity did not occur on this shift BATHING - SCORE: 0-UNK DRESSING - UPPER BODY: Patient is not dressing in public clothing ARTICLES SCORE Total number of steps: 0 DRESSING - UPPER BODY - SCORE: 0-UNK DRESSING - LOWER BODY: Patient is not dressing in public clothing ARTICLES SCORE Total number of steps: 0 DRESSING - LOWER BODY - SCORE: 0-UNK TOILETING: TOILETING - STEP 1: Does the patient require the assistance of a person or device, or need extra time with toileting? Yes . TOILETING - STEP 2: Does the patient require the assistance of a helper? Yes. TOILETING - STEP 3: How much assistance does the patient require from the helper? Only supervision TOILETING - SCORE: 5-SUP BLADDER MANAGEMENT: BLADDER MANAGEMENT - STEP 1: Does the patient control the bladder completely and intentionally without equipment or devices or med ications, and is always continent? No. BLADDER MANAGEMENT - STEP 2: Does the patient require the assistance of a helper? No, patient requires and independently uses an a ssistive device, such as a urinal, bedpan, bedside commode, catheter, absorbent pad, or collecting de vice BLADDER MANAGEMENT - SCORE: 6-ANIYA BOWEL MANAGEMENT: Activity did not occur on this shift BOWEL MANAGEMENT - SCORE: 7-IND TRANSFERS: BED, CHAIR, WHEELCHAIR: TRANSFERS: BED, CHAIR, WHEELCHAIR - STEP 1: Does the patient require assistance of a person or device, or need extra time with bed, chair, or whe elchair transfers? Yes. TRANSFERS: BED, CHAIR, WHEELCHAIR - STEP 2: Does the patient require the assistance of a helper? Yes. TRANSFERS: BED, CHAIR, WHEELCHAIR - STEP 3: How much assistance does the patient require from the helper? Steadying/guiding assistance TRANSFERS: BED, CHAIR, WHEELCHAIR - SCORE: 4-MIN TRANSFERS: TOILET: Activity did not occur on this shift TRANSFERS: TOILET - SCORE: 0-UNK TRANSFERS: SHOWER: Activity did not occur on this shift TRANSFERS: SHOWER - SCORE: 0-UNK TRANSFERS: TUB: Activity did not occur on this shift TRANSFERS: TUB - SCORE: 0-UNK LOCOMOTION: WALK: Activity did not occur on this shift LOCOMOTION: WALK - SCORE: 0-UNK LOCOMOTION: WHEELCHAIR: Activity did not occur on this shift LOCOMOTION: WHEELCHAIR - SCORE: 0-UNK COMPREHENSION: COMPREHENSION: TYPE: Both COMPREHENSION - STEP 1: Does the patient require help from a person or device, or need extra time to understand complex and a bstract ideas (such as current events, finances, discharge planning, medical issues, relationships, e tc)? No. COMPREHENSION - STEP 2: Does the patient need extra time, require an assistive device (such as glasses for visual comprehensi on or a hearing aid for auditory comprehension) or does s/he have mild difficulty understanding compl ex and abstract information? Yes. COMPREHENSION - SCORE: 6-ANIYA EXPRESSION EXPRESSION: TYPE: Both EXPRESSION - STEP 1: Does the patient require help from a person or device, or need extra time expressing complex and abst ract ideas (such as current events, finances, discharge planning, medical issues, relationships, etc) ? No. EXPRESSION - STEP 2: Does the patient need extra time, require an assistive device (such as augmentive communication syste m or a communication board), OR does s/he have mild difficulty expressing complex and abstract ideas (including mild dysarthria or mild word-find problems)? No. EXPRESSION - SCORE: 7-IND SOCIAL INTERACTION: SOCIAL INTERACTION - STEP 1: Does the patient require a helper to interact with others in social and therapeutic situations? No. SOCIAL INTERACTION - STEP 2: Does the patient need extra time in social situations, OR does s/he interact with staff, other patien ts, and family members ONLY in structured environments, OR does s/he require medication for social in teraction? Yes, patient needs extra time SOCIAL INTERACTION - SCORE: 6-ANIYA PROBLEM SOLVING: PROBLEM SOLVING - STEP 1: Does the patient need help from a person or device, or need extra time to solve complex problems such as managing a checking account or confronting interpersonal problems? No. PROBLEM SOLVING - STEP 2: Does the patient require extra time to make decisions or solve problems, OR does s/he have slight dif ficulty reading, initiating, or self-correcting in unfamiliar situations? Yes, patient needs extra ti me. PROBLEM SOLVING - SCORE: 6-ANIYA MEMORY: MEMORY - STEP 1: Does the patient need help from a person or device, or need extra time to remember frequently encount ered people, daily routines, and executing requests? No. MEMORY - STEP 2: Does the patient have slight difficulty recognizing frequently encountered people, daily routines, or executing requests without the need for repetition or using self-initiated or environmental cues to remember? Yes. MEMORY - SCORE: 6-ANIYA SIGNATURE PANEL: The following modified sections: Eating - Score, Grooming - Score, Dressing - Upper Body - Score, Florentin ssing - Lower Body - Score, Toileting - Score, Bladder Management - Score, Bowel Management - Score, Transfers: Bed, Chair, Wheelchair - Score, Transfers: Toilet - Score, Transfers: Shower - Score, Gamble sfers: Tub - Score, Locomotion: Walk - Score, Locomotion: Wheelchair - Score, Comprehension - Score, Expression - Score, Social Interaction - Score, Problem Solving - Score, Memory - Score were [electro nically] signed by Edilma Shah CNA on FriDec 09 2018 01:07:32 GMT-0500 (Central Daylight Time)
[2018-12-09] MEDS: INSULIN -REGULAR HUMAN 50 UNIT/0.5 ML ML SQ SCH ×4 (06:43→20:09)
[2018-12-09] MEDS: COLLAGENASE 30 GM OINTMENT TOP SCH (08:00)
[2018-12-09] MEDS: INSULIN LISPRO 100 UNIT/1 ML SQ SCH ×3 (08:14→16:47)
[2018-12-09] MEDS: INSULIN GLARGINE 100 UNITS/ML SQ SCH (08:15)
[2018-12-09] MEDS: FERROUS SULFATE 325 MG TAB PO SCH (08:16)
[2018-12-09] MEDS: CLOPIDOGREL 75 MG TABLET PO SCH (08:16)
[2018-12-09] MEDS: CRANBERRY FRUIT EXTRACT 200 MG CAP PO SCH ×2 (08:16→20:08)
[2018-12-09] MEDS: METFORMIN HCL 500 MG TAB PO SCH (08:16)
[2018-12-09] MEDS: APIXABAN 2.5 MG TABLET PO SCH ×2 (08:16→20:08)
[2018-12-09] MEDS: FE SULF/FA/VIT B COMP & C TAB PO SCH (08:16)
[2018-12-09] MEDS: PROMOD 30 ML DOSE PO SCH ×2 (08:17→20:07)
--- NOTE | 2018-12-09 10:04 | FAST ---
SHIFT START DATE/TIME: 12/09/2018 07:00 (CDT) SHIFT END DATE/TIME: 12/09/2018 19:00 (CDT) NAME YUMIKO NAVARRO DATE OF : 1950 DATE OF ADMISSION: 11/26/2018 19:02 (CDT) PHONE: AGE: 68 N# [id number] GENDER: Male ENCOUNTER PHYSICIAN: Dr. Dash Hernandez M.D. 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 EATING: EATING - STEP 1: Does the patient require the assistance of a person or device, or need extra time when eating? Yes. EATING - STEP 2: Does the patient require the assistance of a helper? No, patient only requires an assistive device, O R s/he takes more than reasonable time to eat, OR there is a safety concern, OR s/he requires modifie d food consistency EATING - SCORE: 6-ANIYA GROOMING: Activity did not occur on this shift GROOMING - SCORE: 0-UNK BATHING: Activity did not occur on this shift BATHING - SCORE: 0-UNK DRESSING - UPPER BODY: Activity did not occur on this shift ARTICLES SCORE Total number of steps: 0 DRESSING - UPPER BODY - SCORE: 0-UNK DRESSING - LOWER BODY: Activity did not occur on this shift ARTICLES SCORE Total number of steps: 0 DRESSING - LOWER BODY - SCORE: 0-UNK TOILETING: TOILETING - STEP 1: Does the patient require the assistance of a person or device, or need extra time with toileting? Yes . TOILETING - STEP 2: Does the patient require the assistance of a helper? No. TOILETING - SCORE: 6-ANIYA BLADDER MANAGEMENT: BLADDER MANAGEMENT - STEP 1: Does the patient control the bladder completely and intentionally without equipment or devices or med ications, and is always continent? No. BLADDER MANAGEMENT - STEP 2: Does the patient require the assistance of a helper? No, patient requires and independently uses an a ssistive device, such as a urinal, bedpan, bedside commode, catheter, absorbent pad, or collecting de vice BLADDER MANAGEMENT - SCORE: 6-ANIYA BOWEL MANAGEMENT: Activity did not occur on this shift BOWEL MANAGEMENT - SCORE: 7-IND TRANSFERS: BED, CHAIR, WHEELCHAIR: TRANSFERS: BED, CHAIR, WHEELCHAIR - STEP 1: Does the patient require assistance of a person or device, or need extra time with bed, chair, or whe elchair transfers? Yes. TRANSFERS: BED, CHAIR, WHEELCHAIR - STEP 2: Does the patient require the assistance of a helper? Yes. TRANSFERS: BED, CHAIR, WHEELCHAIR - STEP 3: How much assistance does the patient require from the helper? Only supervision TRANSFERS: BED, CHAIR, WHEELCHAIR - SCORE: 5-SUP TRANSFERS: TOILET: TRANSFERS: TOILET - STEP 1: Does the patient require the assistance of a person or device, or need extra time with toilet transfe rs? Yes. TRANSFERS: TOILET - STEP 2: Does the patient require the assistance of a helper? Yes. TRANSFERS: TOILET - STEP 3: How much assistance does the patient require from the helper? Only supervision, cuing, coaxing, OR he lp to set out transfer equipment or to lock brakes and/or lift foot rests TRANSFERS: TOILET - SCORE: 5-SUP TRANSFERS: SHOWER: Activity did not occur on this shift TRANSFERS: SHOWER - SCORE: 0-UNK TRANSFERS: TUB: Activity did not occur on this shift TRANSFERS: TUB - SCORE: 0-UNK LOCOMOTION: WALK: Activity did not occur on this shift LOCOMOTION: WALK - SCORE: 0-UNK LOCOMOTION: WHEELCHAIR: Activity did not occur on this shift LOCOMOTION: WHEELCHAIR - SCORE: 0-UNK COMPREHENSION: COMPREHENSION: TYPE: Both COMPREHENSION - STEP 1: Does the patient require help from a person or device, or need extra time to understand complex and a bstract ideas (such as current events, finances, discharge planning, medical issues, relationships, e tc)? No. COMPREHENSION - STEP 2: Does the patient need extra time, require an assistive device (such as glasses for visual comprehensi on or a hearing aid for auditory comprehension) or does s/he have mild difficulty understanding compl ex and abstract information? Yes. COMPREHENSION - SCORE: 6-ANIYA EXPRESSION EXPRESSION: TYPE: Both EXPRESSION - STEP 1: Does the patient require help from a person or device, or need extra time expressing complex and abst ract ideas (such as current events, finances, discharge planning, medical issues, relationships, etc) ? No. EXPRESSION - STEP 2: Does the patient need extra time, require an assistive device (such as augmentive communication syste m or a communication board), OR does s/he have mild difficulty expressing complex and abstract ideas (including mild dysarthria or mild word-find problems)? Yes. EXPRESSION - SCORE: 6-ANIYA SOCIAL INTERACTION: SOCIAL INTERACTION - STEP 1: Does the patient require a helper to interact with others in social and therapeutic situations? No. SOCIAL INTERACTION - STEP 2: Does the patient need extra time in social situations, OR does s/he interact with staff, other patien ts, and family members ONLY in structured environments, OR does s/he require medication for social in teraction? Yes, patient needs extra time SOCIAL INTERACTION - SCORE: 6-ANIYA PROBLEM SOLVING: PROBLEM SOLVING - STEP 1: Does the patient need help from a person or device, or need extra time to solve complex problems such as managing a checking account or confronting interpersonal problems? No. PROBLEM SOLVING - STEP 2: Does the patient require extra time to make decisions or solve problems, OR does s/he have slight dif ficulty reading, initiating, or self-correcting in unfamiliar situations? Yes, patient needs extra ti me. PROBLEM SOLVING - SCORE: 6-ANIYA MEMORY: MEMORY - STEP 1: Does the patient need help from a person or device, or need extra time to remember frequently encount ered people, daily routines, and executing requests? No. MEMORY - STEP 2: Does the patient have slight difficulty recognizing frequently encountered people, daily routines, or executing requests without the need for repetition or using self-initiated or environmental cues to remember? Yes. MEMORY - SCORE: 6-ANIYA SIGNATURE PANEL: The following modified sections: Eating - Score, Grooming - Score, Bathing - Score, Dressing - Upper Body - Score, Dressing - Lower Body - Score, Toileting - Score, Bladder Management - Score, Bowel Man agement - Score, Transfers: Bed, Chair, Wheelchair - Score, Transfers: Toilet - Score, Transfers: Cammie wer - Score, Transfers: Tub - Score, Locomotion: Walk - Score, Locomotion: Wheelchair - Score, Compre hension - Score, Expression - Score, Social Interaction - Score, Problem Solving - Score, Memory - Sc ore were [electronically] signed by Vance Pacheco on FriDec 09 2018 10:04:20 GMT-0500 (Central Daylight Time)
--- NOTE | 2018-12-09 15:34 | FAST ---
ENCOUNTER DATE AND TIME: 12/09/2018 08:00 (CDT) NAME YUMIKO NAVARRO DATE OF : 1950 DATE OF ADMISSION: 11/26/2018 19:02 (CDT) PHONE: AGE: 68 N# [id number] GENDER: Male ENCOUNTER PHYSICIAN: Dr. Dash Hernandez M.D. 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 EATING: Activity did not occur on this shift EATING - SCORE: 0-UNK GROOMING: Activity did not occur on this shift GROOMING - SCORE: 0-UNK BATHING: Activity did not occur on this shift BATHING - SCORE: 0-UNK DRESSING - UPPER BODY: Activity did not occur on this shift Patient is not dressing in public clothing ARTICLES SCORE Total number of steps: 0 DRESSING - UPPER BODY - SCORE: 0-UNK DRESSING - LOWER BODY: Activity did not occur on this shift Patient is not dressing in public clothing ARTICLES SCORE Total number of steps: 0 DRESSING - LOWER BODY - SCORE: 0-UNK TOILETING: Activity did not occur on this shift TOILETING - SCORE: 0-UNK BLADDER MANAGEMENT: Activity did not occur on this shift BLADDER MANAGEMENT - SCORE: 7-IND BOWEL MANAGEMENT: Activity did not occur on this shift BOWEL MANAGEMENT - SCORE: 7-IND TRANSFERS: BED, CHAIR, WHEELCHAIR: TRANSFERS: BED, CHAIR, WHEELCHAIR - STEP 1: Does the patient require assistance of a person or device, or need extra time with bed, chair, or whe elchair transfers? Yes. TRANSFERS: BED, CHAIR, WHEELCHAIR - STEP 2: Does the patient require the assistance of a helper? No. Patient only requires an assistive device fo r bed, chair, wheelchair transfers such as a sliding board, grab bar, or brace, OR s/he takes more th an reasonable time, OR there is a safety concern when s/he performs the transfers TRANSFERS: BED, CHAIR, WHEELCHAIR - SCORE: 6-ANIYA TRANSFERS: TOILET: Activity did not occur on this shift TRANSFERS: TOILET - SCORE: 0-UNK TRANSFERS: SHOWER: Activity did not occur on this shift TRANSFERS: SHOWER - SCORE: 0-UNK TRANSFERS: TUB: Activity did not occur on this shift TRANSFERS: TUB - SCORE: 0-UNK LOCOMOTION: WALK: Activity did not occur on this shift LOCOMOTION: WALK - SCORE: 0-UNK LOCOMOTION: WHEELCHAIR: Activity did not occur on this shift LOCOMOTION: WHEELCHAIR - SCORE: 0-UNK LOCOMOTION: STAIRS: Activity did not occur on this shift LOCOMOTION: STAIRS - SCORE: 0-UNK COMPREHENSION: COMPREHENSION - SCORE: 0-UNK EXPRESSION EXPRESSION - SCORE: 0-UNK SOCIAL INTERACTION: SOCIAL INTERACTION - SCORE: 0-UNK PROBLEM SOLVING: PROBLEM SOLVING - SCORE: 0-UNK MEMORY: MEMORY - SCORE: 0-UNK SIGNATURE PANEL: The following modified sections: Transfers: Bed, Chair, Wheelchair - Score, Transfers: Toilet - Score , Locomotion: Walk - Score, Locomotion: Wheelchair - Score, Locomotion: Stairs - Score were [electron ically] signed by Jesús Cabrera PTA on FriDec 09 2018 15:33:20 GMT-0500 (Central Daylight Time)
--- NOTE | 2018-12-09 19:28 | R.PN ---
ENCOUNTER DATE AND TIME: 12/09/2018 19:22 (CDT) NAME YUMIKO NAVARRO DATE OF : 1950 DATE OF ADMISSION: 11/26/2018 19:02 (CDT) SEVERE PERIPHERAL ARTERY DISEASECHIEF COMPLAINT: Severe peripheral arterial disease with osteomyelitis SUBJECTIVE: Pt denied any depression. Pt denied any Shortness of Breath. Ambulated 500' with modified independence using a rolling walker. Self-propelled wheelchair 500' with modified independence. Up and down 10 steps with contact guard assistance. Hgb 9.2, glucose 120 to 151, HgA1c 6.8, calcium 8.4. VITAL SIGNS Temperature: 97.8 F SBP/DBP: 110/58 Pulse: 94 Resp: 14 MEDICATION ALLERGIES: No Known Drug Allergies (NKDA) ENVIRONMENTAL ALLERGIES: None Known - Substance Allergies None Known - Other Allergies None Known CONSULT: Perform Consult Certified Prosthetic for prosthesis construction NURSING: - Shower allowing shower - Lab Results blood Sugar Check ACHS PRECAUTIONS: - Weight Bearing Precaution NWB right LE ACTIVITIES OOB only with supervision THERAPIES: - Orthotics/Prosthetics Prosthetic Evaluation. - Occupational Therapy Evaluate and Treat. - Physical Therapy Evaluate and Treat. PHYSICAL EXAM - Gen Alert and awake Lying in bed No apparent distress Oriented to: person, time, and place - Skin Right foot bandage in place with good hemostasis. No abnormalities - Eyes No abnormalities - ENMT No abnormalities - Neck No abnormalities - CVS RRR - Chest No abnormalities - Abd + bowel sounds - GI nondistended Deferred - No abnormalities - Ext No significant edema - MSK 4+/5 weakness in both lower extremities. - Neuro No focal deficits - Psych No abnormalities ASSESSMENT: Pt. is a 68 yo Right-handed white male.On 11/04/2018 he was admitted to [facility] with diagnosis SEVERE PE RIPHERAL ARTERY DISEASE.His impairment category is Amputation of Limb 05 - Other Amputation (05.9).P re-morbidly, Pt. was independent/mod-I in Self-Care, Sphincter Control, Transfers Control, Locomotion , Communication, and Social Cognition; and he had good Sphincter Control.Currently, he has deficits o f Transfers Control, Locomotion, Endurance, Balance, Safety Awareness, and Self-Care.Pt. is now refer red to [facility] for acute in-patient rehabilitation in order to maximize pat ient's functional independence in activities of daily living, strength, ROM, and mobility.- Rehab Goa l Patient has realistic goal of being discharged at assistance level 6-Rian to reside at Home with Fam jenn/Relatives. MDM/PLAN: - Physical Therapy Gait dysfunction - to improve, our physical therapists will perform initial evaluation of pt's statu s upon admission and devise an individualized program for Gait Training, and Wheel Chair mobility Inability to transfer - to improve, our physical therapists will perform initial evaluation of pt's status upon admission and devise an individualized program for Bed mobility Need for home safety evaluation - to improve, our physical therapists will perform initial evaluatio n of pt's status upon admission and devise an individualized program for Home Evaluation Need in caregiver upon discharge - to improve, our physical therapists will perform initial evaluati on of pt's status upon admission and devise an individualized program for Caregiver Training Edema - to improve, our physical therapists will perform initial evaluation of pt's status upon admi ssion and devise an individualized program for Elevation Training, and Lymphedema Therapy New precaution - to improve, our physical therapists will perform initial evaluation of pt's status upon admission and devise an individualized program for Patient precaution education Poor balance - to improve, our physical therapists will perform initial evaluation of pt's status up on admission and devise an individualized program for Balance Training Poor endurance - to improve, our physical therapists will perform initial evaluation of pt's status upon admission and devise an individualized program for Endurance Training Weakness - to improve, our physical therapists will perform initial evaluation of pt's status upon a dmission and devise an individualized program for Aquatic Therapy, Neuromuscular Reeducation, and Str engthening Achieving independence - to improve, our physical therapists will perform initial evaluation of pt's status upon admission and devise an individualized program for Community Reintegration Activities - Occupational Therapy ADL deficits - to improve, our occupation therapists will perform initial evaluation of pt's status upon admission and devise an individualized program for Bathing, Bed mobility, Community Reintegratio n, Cooking, Dressing, Eating, Fine Motor Skills, Grooming, Homemaking, Kitchen Mobility, Laundry, Pat ient Education, Safety Awareness, Splinting - Positioning, Transfers(Toilet, Tub, Shower), and Wheel Chair Management Need for home health care social worker - to improve, our occupation therapists will perform initial evaluation of pt's status upon admission and devise an individualized program for Caregiver Training Weakness - to improve, our occupation therapists will perform initial evaluation of pt's status upon admission and devise an individualized program for Aquatic Therapy, Balance, Endurance, UE ROM, and UE strengthening - Diet Type Continue ADA 1800 - Diet - Liquid Texture Continue Regular - Tube Feed Continue N/A - Lab Results blood Sugar Check ACHS - Weight Bearing Precaution NWB right LE - N/A Perform Consult Certified Prosthetic for prosthesis construction - Diet - Solid Texture Continue Regular - Shower allowing shower FUNCTIONAL STATUS: UPDATED AT WEEKLY TEAM CONFERENCE - Bladder Same accident frequency: 7-Ind - No accidents in the past 7 days - Bowel Same accident frequency: 7-Ind - No accidents in the past 7 days - Walking Same score based on distance walked: 1(<=50ft) - Wheelchair Same score based on distance traveled: 0(N/A) FUNCTIONAL STATUS: - Self-Care A. Eating Ind B. Grooming sup C. Bathing sup D. Dressing - Upper sup E. Dressing - Lower sup F. Toileting sup - Sphincter Control G: Bladder control Ind H: Bowel control Ind - Transfers Control I. Bed/Chair/Wheelchair Brigid J. Toilet Brigid K. Tub/Shower ADNO - Locomotion L. Walk/Wheelchair (C) Brigid L. Walk/Wheelchair (W) Brigid M. Stairs ADNO - Communication N. Comprehension (B) Ind O. Expression (B) Ind - Social Cognition P. Social Interaction Ind Q. Problem Solving Ind R. Memory Ind - Endurance Fair - Balance Fair - Safety Awareness Fair [facility] DEFICITS: Transfers Control, Locomotion, Endurance, Balance, Safety Awareness, and Self-Care SIGNATURE PANEL: (CDT)
[2018-12-09] MEDS: DOCUSATE NA/SENNA CONC 1 TAB PO SCH (20:08)
[2018-12-09] MEDS: HYDROCODONE/APAP 5/325 MG TAB PO PRN (20:08)
[2018-12-09] MEDS: ATORVASTATIN 80 MG TAB PO SCH (20:08)
--- NOTE | 2018-12-09 21:41 | P.PN ---
Subjective Date of Service: 12/09/18 Chief Complaint: NO PAIN, NO FEVER. FEELS WELL. HE FEELS WELL, HE HAS NO PAIN, NO FEVER OR CHILLS. NO NEW ISSUES. DOCTOR FROM [place] CALLED AND WILL SEE HIM IN AM FOR EVAL. SUGGESTED IV ABX, BID DRESSING. NO DERBIDEMENT DONE. MR NAVARRO WENT TO [facility] AND WILL GO BACK AGAIN IN ONE WEEK. HE FEELS WELL. PER RN THE ULCER IS NOT SMELLING ANY LONGER. NO PAIN. MR. NAVARRO IS DOING WELL. HE HAS NO PAIN. HE HAS CLINICALLY IMPROVED. HE WILL SEE SURGEON IN AM AGAIN. HE WENT TO [facility] FOR VASCULAR MD VISIT. ADVISED ORAL ABX AFTER IV ZOSYN HERE AND START WET TO DRY DRESSING. MR. NAVARRO IS STABLE. HE HAS PLAN OF THERAPY BY [facility] DOCS. Physical Examination - Vital Signs Temperature: 97.4 F Blood Pressure: 110/58 Pulse: 94 Respirations: 16 Pulse Ox (%): 98 - Studies Microbiology Data (last 24 hrs): 12/06/18 13:40 Wound - Right Foot Gram Stain - Final Medications List Reviewed: Yes Assessment And Plan - Current Problems (Diagnosis) (1) PVD (peripheral vascular disease) Current Visit: Yes Status: Acute Plan: SP FOREFOOT AMPUTATION. STABLE. PT NOW. (2) Nontraumatic amputation of right foot Current Visit: Yes Status: Acute Plan: ABOVE. HP. SED RATE CRP MRI IN AM. TALKED TO VIK. (3) Diabetes Current Visit: Yes Status: Chronic Plan: DIABETES- STABLE BUT WITH SMOKING HE WILL GET COMPLICATIONS. HE WAS AWARE OF RISKS BEFORE. RESUME MEDS CHECK A1C AND LDL. WILL CHECK IN AM. DRESSING DONE ALREADY. STABLE ON ABX Qualifiers: Diabetes mellitus type: type 2 Diabetes mellitus complication status: with circulatory complication Diabetes mellitus complication detail: with peripheral angiopathy with gangrene (4) Amputation stump infection Current Visit: Yes Status: Acute Plan: IT SEEMS LIKE WOUND IS NOT HEALING AND HAS INFECTION WITH NECROTIC NON HEALING WOUND. HE MAY NEED HIGHER AMPUTATION AT [facility] THIS ULCER MAY NOT HEAL WITH YEARS OF SMOKING AND RELATED PVD. CULTURES HAVE BEEN SENT. ZOSYN STARTED. IV. DR. CHRISTA CALDERÓN HAS BEEN CALLED AND LEFT MESSAGE TO CALL BACK. [phone] HE NEEDS TO BE SENT BACK TO [facility]. DR. CALDERÓN CALLED. HE WILL SEE HIM IN AM. IV ABX CONTINUE. I LEAVE MRI FOR [facility]. HE WILL NEED DEBRIDEMENT BY THEM. DR. CALDERÓN IS MANAGING THIS. I AM AFRAID OF INFECTION BUT HE IS NOT SURE. HE ADVISED CONTINUATION OF ABX IV. PROTEUS FROM WOUND. RESUME ZOSYN. I REMOVED SOME MORE PUS TODAY JUST BY PRESSURE. HE WILL FU WITH DR. CALDERÓN. FURTHER DEBRIDMENT MAY BE NEEDED- BUT DECISION PER DR. CALDERÓN. HE WILL SEE DR. CALDERÓN IN AM. MANAGED BY DR Tamar CALDERÓN. HE GAVE NEW ORDERS.
[2018-12-10] MEDS: PIPER/TAZO/NS 3.375gm 3.375 GM/100 ML BAG IV SCH ×2 (01:53→08:46)
--- NOTE | 2018-12-10 02:42 | FAST ---
SHIFT START DATE/TIME: 12/09/2018 19:00 (CDT) SHIFT END DATE/TIME: 12/10/2018 07:00 (CDT) NAME YUMIKO NAVARRO DATE OF : 1950 DATE OF ADMISSION: 11/26/2018 19:02 (CDT) PHONE: AGE: 68 N# [id number] GENDER: Male ENCOUNTER PHYSICIAN: Dr. Dash Hernandez M.D. 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 EATING: Activity did not occur on this shift EATING - SCORE: 0-UNK GROOMING: Activity did not occur on this shift GROOMING - SCORE: 0-UNK BATHING: Activity did not occur on this shift BATHING - SCORE: 0-UNK DRESSING - UPPER BODY: Activity did not occur on this shift ARTICLES SCORE Total number of steps: 0 DRESSING - UPPER BODY - SCORE: 0-UNK DRESSING - LOWER BODY: Activity did not occur on this shift ARTICLES SCORE Total number of steps: 0 DRESSING - LOWER BODY - SCORE: 0-UNK TOILETING: Activity did not occur on this shift TOILETING - SCORE: 0-UNK BLADDER MANAGEMENT: BLADDER MANAGEMENT - STEP 1: Does the patient control the bladder completely and intentionally without equipment or devices or med ications, and is always continent? Yes. BLADDER MANAGEMENT - SCORE: 7-IND BOWEL MANAGEMENT: Activity did not occur on this shift BOWEL MANAGEMENT - SCORE: 7-IND TRANSFERS: BED, CHAIR, WHEELCHAIR: TRANSFERS: BED, CHAIR, WHEELCHAIR - STEP 1: Does the patient require assistance of a person or device, or need extra time with bed, chair, or whe elchair transfers? Yes. TRANSFERS: BED, CHAIR, WHEELCHAIR - STEP 2: Does the patient require the assistance of a helper? Yes. TRANSFERS: BED, CHAIR, WHEELCHAIR - STEP 3: How much assistance does the patient require from the helper? Only supervision TRANSFERS: BED, CHAIR, WHEELCHAIR - SCORE: 5-SUP TRANSFERS: TOILET: Activity did not occur on this shift TRANSFERS: TOILET - SCORE: 0-UNK TRANSFERS: SHOWER: Activity did not occur on this shift TRANSFERS: SHOWER - SCORE: 0-UNK TRANSFERS: TUB: Activity did not occur on this shift TRANSFERS: TUB - SCORE: 0-UNK LOCOMOTION: WALK: Activity did not occur on this shift LOCOMOTION: WALK - SCORE: 0-UNK LOCOMOTION: WHEELCHAIR: Activity did not occur on this shift LOCOMOTION: WHEELCHAIR - SCORE: 0-UNK COMPREHENSION: COMPREHENSION: TYPE: Both COMPREHENSION - STEP 1: Does the patient require help from a person or device, or need extra time to understand complex and a bstract ideas (such as current events, finances, discharge planning, medical issues, relationships, e tc)? No. COMPREHENSION - STEP 2: Does the patient need extra time, require an assistive device (such as glasses for visual comprehensi on or a hearing aid for auditory comprehension) or does s/he have mild difficulty understanding compl ex and abstract information? Yes. COMPREHENSION - SCORE: 6-ANIYA EXPRESSION EXPRESSION: TYPE: Both EXPRESSION - STEP 1: Does the patient require help from a person or device, or need extra time expressing complex and abst ract ideas (such as current events, finances, discharge planning, medical issues, relationships, etc) ? No. EXPRESSION - STEP 2: Does the patient need extra time, require an assistive device (such as augmentive communication syste m or a communication board), OR does s/he have mild difficulty expressing complex and abstract ideas (including mild dysarthria or mild word-find problems)? No. EXPRESSION - SCORE: 7-IND SOCIAL INTERACTION: SOCIAL INTERACTION - STEP 1: Does the patient require a helper to interact with others in social and therapeutic situations? No. SOCIAL INTERACTION - STEP 2: Does the patient need extra time in social situations, OR does s/he interact with staff, other patien ts, and family members ONLY in structured environments, OR does s/he require medication for social in teraction? No. SOCIAL INTERACTION - SCORE: 7-IND PROBLEM SOLVING: PROBLEM SOLVING - STEP 1: Does the patient need help from a person or device, or need extra time to solve complex problems such as managing a checking account or confronting interpersonal problems? No. PROBLEM SOLVING - STEP 2: Does the patient require extra time to make decisions or solve problems, OR does s/he have slight dif ficulty reading, initiating, or self-correcting in unfamiliar situations? No. PROBLEM SOLVING - SCORE: 7-IND MEMORY: MEMORY - STEP 1: Does the patient need help from a person or device, or need extra time to remember frequently encount ered people, daily routines, and executing requests? No. MEMORY - STEP 2: Does the patient have slight difficulty recognizing frequently encountered people, daily routines, or executing requests without the need for repetition or using self-initiated or environmental cues to remember? No. MEMORY - SCORE: 7-IND SIGNATURE PANEL: The following modified sections: Eating - Score, Grooming - Score, Bathing - Score, Dressing - Upper Body - Score, Dressing - Lower Body - Score, Toileting - Score, Bladder Management - Score, Bowel Man agement - Score, Transfers: Bed, Chair, Wheelchair - Score, Transfers: Toilet - Score, Transfers: Cammie wer - Score, Transfers: Tub - Score, Locomotion: Walk - Score, Locomotion: Wheelchair - Score, Compre hension - Score, Expression - Score, Social Interaction - Score, Problem Solving - Score, Memory - Sc ore were [electronically] signed by Susan Valdez CNA on FriDec 10 2018 02:42:28 T-0500 ([place] Da ylight Time)
[2018-12-10 06:24] LABS: Absolute Lymphocytes (CBC) 2.8 K/uL (0.7-4.9); Absolute Monocytes 0.8 K/uL (0.1-1.3); Absolute Neutrophil 5.2 K/uL (1.8-8.0); Basophils % 0.8 % (0-1.3); Eosinophils % 4.7 % (0-4.4); Hematocrit 30.7 % (39.6-49.0); Lymphocytes % 30.5 % (15.3-44.8); MPV 6.8 fL (7.6-11.3); Monocytes % 8.4 % (3.3-12.3); RBC Red Blood Cell Count 3.54 M/uL (4.33-5.43)
[2018-12-10 06:39] LABS: Albumin 2.7 g/dL (3.4-5.0); BUN Blood Urea Nitrogen 17 mg/dL (7-18); Bicarbonate 29 mmol/L (21-32); Glucose Level 114 mg/dL (74-106); Potassium 3.9 mmol/L (3.5-5.1); Prealbumin 22.9 mg/dL (20-40); Sodium Level 141 mmol/L (136-145)
[2018-12-10] MEDS: INSULIN -REGULAR HUMAN 50 UNIT/0.5 ML ML SQ SCH ×2 (07:30→12:04)
[2018-12-10] MEDS: INSULIN GLARGINE 100 UNITS/ML SQ SCH (07:46)
[2018-12-10] MEDS: FE SULF/FA/VIT B COMP & C TAB PO SCH (07:47)
[2018-12-10] MEDS: INSULIN LISPRO 100 UNIT/1 ML SQ SCH ×2 (07:47→12:03)
[2018-12-10] MEDS: METFORMIN HCL 500 MG TAB PO SCH (07:47)
[2018-12-10] MEDS: CLOPIDOGREL 75 MG TABLET PO SCH (07:48)
[2018-12-10] MEDS: FERROUS SULFATE 325 MG TAB PO SCH (07:48)
[2018-12-10] MEDS: APIXABAN 2.5 MG TABLET PO SCH (07:48)
[2018-12-10] MEDS: CRANBERRY FRUIT EXTRACT 200 MG CAP PO SCH (07:48)
[2018-12-10] MEDS: PROMOD 30 ML DOSE PO SCH (07:49)
[2018-12-10 08:20] VITALS: BP 103/55; TEMP 97.2
--- NOTE | 2018-12-10 09:26 | FAST ---
SHIFT START DATE/TIME: 12/10/2018 07:00 (CDT) SHIFT END DATE/TIME: 12/10/2018 19:00 (CDT) NAME YUMIKO NAVARRO DATE OF : 1950 DATE OF ADMISSION: 11/26/2018 19:02 (CDT) PHONE: AGE: 68 N# [id number] GENDER: Male ENCOUNTER PHYSICIAN: Dr. Dash Hernandez M.D. 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 EATING: EATING - STEP 1: Does the patient require the assistance of a person or device, or need extra time when eating? Yes. EATING - STEP 2: Does the patient require the assistance of a helper? No, patient only requires an assistive device, O R s/he takes more than reasonable time to eat, OR there is a safety concern, OR s/he requires modifie d food consistency EATING - SCORE: 6-ANIYA GROOMING: Activity did not occur on this shift GROOMING - SCORE: 0-UNK BATHING: Activity did not occur on this shift BATHING - SCORE: 0-UNK DRESSING - UPPER BODY: Activity did not occur on this shift ARTICLES SCORE Total number of steps: 0 DRESSING - UPPER BODY - SCORE: 0-UNK DRESSING - LOWER BODY: Activity did not occur on this shift ARTICLES SCORE Total number of steps: 0 DRESSING - LOWER BODY - SCORE: 0-UNK TOILETING: TOILETING - STEP 1: Does the patient require the assistance of a person or device, or need extra time with toileting? Yes . TOILETING - STEP 2: Does the patient require the assistance of a helper? No. TOILETING - SCORE: 6-ANIYA BLADDER MANAGEMENT: BLADDER MANAGEMENT - STEP 1: Does the patient control the bladder completely and intentionally without equipment or devices or med ications, and is always continent? No. BLADDER MANAGEMENT - STEP 2: Does the patient require the assistance of a helper? No, patient requires and independently uses an a ssistive device, such as a urinal, bedpan, bedside commode, catheter, absorbent pad, or collecting de vice BLADDER MANAGEMENT - SCORE: 6-ANIYA BOWEL MANAGEMENT: Activity did not occur on this shift BOWEL MANAGEMENT - SCORE: 7-IND TRANSFERS: BED, CHAIR, WHEELCHAIR: TRANSFERS: BED, CHAIR, WHEELCHAIR - STEP 1: Does the patient require assistance of a person or device, or need extra time with bed, chair, or whe elchair transfers? Yes. TRANSFERS: BED, CHAIR, WHEELCHAIR - STEP 2: Does the patient require the assistance of a helper? No. Patient only requires an assistive device fo r bed, chair, wheelchair transfers such as a sliding board, grab bar, or brace, OR s/he takes more th an reasonable time, OR there is a safety concern when s/he performs the transfers TRANSFERS: BED, CHAIR, WHEELCHAIR - SCORE: 6-ANIYA TRANSFERS: TOILET: TRANSFERS: TOILET - STEP 1: Does the patient require the assistance of a person or device, or need extra time with toilet transfe rs? Yes. TRANSFERS: TOILET - STEP 2: Does the patient require the assistance of a helper? No. Patient only requires an assistive device wins[place] ch as a grab bar or special seat, OR s/he takes more than reasonable time to perform toilet transfers , OR there is a safety concern when s/he performs toilet transfers. TRANSFERS: TOILET - SCORE: 6-ANIYA TRANSFERS: SHOWER: Activity did not occur on this shift TRANSFERS: SHOWER - SCORE: 0-UNK TRANSFERS: TUB: Activity did not occur on this shift TRANSFERS: TUB - SCORE: 0-UNK LOCOMOTION: WALK: Activity did not occur on this shift LOCOMOTION: WALK - SCORE: 0-UNK LOCOMOTION: WHEELCHAIR: Activity did not occur on this shift LOCOMOTION: WHEELCHAIR - SCORE: 0-UNK COMPREHENSION: COMPREHENSION: TYPE: Both COMPREHENSION - STEP 1: Does the patient require help from a person or device, or need extra time to understand complex and a bstract ideas (such as current events, finances, discharge planning, medical issues, relationships, e tc)? No. COMPREHENSION - STEP 2: Does the patient need extra time, require an assistive device (such as glasses for visual comprehensi on or a hearing aid for auditory comprehension) or does s/he have mild difficulty understanding compl ex and abstract information? Yes. COMPREHENSION - SCORE: 6-ANIYA EXPRESSION EXPRESSION: TYPE: Both EXPRESSION - STEP 1: Does the patient require help from a person or device, or need extra time expressing complex and abst ract ideas (such as current events, finances, discharge planning, medical issues, relationships, etc) ? No. EXPRESSION - STEP 2: Does the patient need extra time, require an assistive device (such as augmentive communication syste m or a communication board), OR does s/he have mild difficulty expressing complex and abstract ideas (including mild dysarthria or mild word-find problems)? Yes. EXPRESSION - SCORE: 6-ANIYA SOCIAL INTERACTION: SOCIAL INTERACTION - STEP 1: Does the patient require a helper to interact with others in social and therapeutic situations? No. SOCIAL INTERACTION - STEP 2: Does the patient need extra time in social situations, OR does s/he interact with staff, other patien ts, and family members ONLY in structured environments, OR does s/he require medication for social in teraction? Yes, patient needs extra time SOCIAL INTERACTION - SCORE: 6-ANIYA PROBLEM SOLVING: PROBLEM SOLVING - STEP 1: Does the patient need help from a person or device, or need extra time to solve complex problems such as managing a checking account or confronting interpersonal problems? No. PROBLEM SOLVING - STEP 2: Does the patient require extra time to make decisions or solve problems, OR does s/he have slight dif ficulty reading, initiating, or self-correcting in unfamiliar situations? Yes, patient needs extra ti me. PROBLEM SOLVING - SCORE: 6-ANIYA MEMORY: MEMORY - STEP 1: Does the patient need help from a person or device, or need extra time to remember frequently encount ered people, daily routines, and executing requests? No. MEMORY - STEP 2: Does the patient have slight difficulty recognizing frequently encountered people, daily routines, or executing requests without the need for repetition or using self-initiated or environmental cues to remember? Yes. MEMORY - SCORE: 6-ANIYA SIGNATURE PANEL: The following modified sections: Eating - Score, Grooming - Score, Bathing - Score, Dressing - Upper Body - Score, Dressing - Lower Body - Score, Toileting - Score, Bladder Management - Score, Bowel Man agement - Score, Transfers: Bed, Chair, Wheelchair - Score, Transfers: Toilet - Score, Transfers: Cammie wer - Score, Transfers: Tub - Score, Locomotion: Walk - Score, Locomotion: Wheelchair - Score, Compre hension - Score, Expression - Score, Social Interaction - Score, Problem Solving - Score, Memory - Sc ore were [electronically] signed by Vance Pacheco on FriDec 10 2018 09:26:11 GMT-0500 (Central Daylight Time)
--- NOTE | 2018-12-11 11:46 | FAST ---
ENCOUNTER DATE AND TIME: 12/10/2018 08:00 (CDT) NAME YUMIKO NAVARRO DATE OF : 1950 DATE OF ADMISSION: 11/26/2018 19:02 (CDT) PHONE: AGE: 68 N# [id number] GENDER: Male ENCOUNTER PHYSICIAN: Dr. Dash Hernandez M.D. 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 EATING: Activity did not occur on this shift EATING - SCORE: 0-UNK GROOMING: Activity did not occur on this shift GROOMING - SCORE: 0-UNK BATHING: Activity did not occur on this shift BATHING - SCORE: 0-UNK DRESSING - UPPER BODY: Activity did not occur on this shift Patient is not dressing in public clothing ARTICLES SCORE Total number of steps: 0 DRESSING - UPPER BODY - SCORE: 0-UNK DRESSING - LOWER BODY: Activity did not occur on this shift Patient is not dressing in public clothing ARTICLES SCORE Total number of steps: 0 DRESSING - LOWER BODY - SCORE: 0-UNK TOILETING: Activity did not occur on this shift TOILETING - SCORE: 0-UNK BLADDER MANAGEMENT: Activity did not occur on this shift BLADDER MANAGEMENT - SCORE: 7-IND BOWEL MANAGEMENT: Activity did not occur on this shift BOWEL MANAGEMENT - SCORE: 7-IND TRANSFERS: BED, CHAIR, WHEELCHAIR: TRANSFERS: BED, CHAIR, WHEELCHAIR - STEP 1: Does the patient require assistance of a person or device, or need extra time with bed, chair, or whe elchair transfers? Yes. TRANSFERS: BED, CHAIR, WHEELCHAIR - STEP 2: Does the patient require the assistance of a helper? No. Patient only requires an assistive device fo r bed, chair, wheelchair transfers such as a sliding board, grab bar, or brace, OR s/he takes more th an reasonable time, OR there is a safety concern when s/he performs the transfers TRANSFERS: BED, CHAIR, WHEELCHAIR - SCORE: 6-ANIYA TRANSFERS: TOILET: Activity did not occur on this shift TRANSFERS: TOILET - SCORE: 0-UNK TRANSFERS: SHOWER: Activity did not occur on this shift TRANSFERS: SHOWER - SCORE: 0-UNK TRANSFERS: TUB: Activity did not occur on this shift TRANSFERS: TUB - SCORE: 0-UNK LOCOMOTION: WALK: LOCOMOTION: WALK - STEP 1: Does the patient need help from a person or device, or need extra time to walk 150 feet? No. LOCOMOTION: WALK - STEP 2: Does the patient need an assistive device (such as an orthosis, prosthesis, crutches, or walker) to g o 150 feet, OR does s/he take more than reasonable time, OR is there a concern for safety? Yes, the p atient needs an assistive device LOCOMOTION: WALK - SCORE: 6-ANIYA LOCOMOTION: WHEELCHAIR: LOCOMOTION: WHEELCHAIR - STEP 1: Does the patient need help to go 150 feet in a wheelchair? No. LOCOMOTION: WHEELCHAIR - SCORE: 6-ANIYA LOCOMOTION: STAIRS: LOCOMOTION: STAIRS - STEP 1: Does the patient need help to go up and down 12 to 14 stairs? Yes. LOCOMOTION: STAIRS - STEP 2: How much assistance does the patient need from the helper to go a minimum of 12 to 14 stairs? The pat ient goes less than 12 stairs, but at least 4 stairs LOCOMOTION: STAIRS - SCORE: 2-MAX COMPREHENSION: COMPREHENSION - SCORE: 0-UNK EXPRESSION EXPRESSION - SCORE: 0-UNK SOCIAL INTERACTION: SOCIAL INTERACTION - SCORE: 0-UNK PROBLEM SOLVING: PROBLEM SOLVING - SCORE: 0-UNK MEMORY: MEMORY - SCORE: 0-UNK SIGNATURE PANEL: The following modified sections: Transfers: Bed, Chair, Wheelchair - Score, Transfers: Toilet - Score , Locomotion: Walk - Score, Locomotion: Wheelchair - Score, Locomotion: Stairs - Score were [electron adalberto] signed by Jesús Cabrera PTA on FriDec 11 2018 11:45:08 GMT-0500 (Central Daylight Time)
--- NOTE | 2018-12-11 15:25 | FAST ---
ENCOUNTER DATE AND TIME: 12/09/2018 08:00 (CDT) NAME YUMIKO NAVARRO DATE OF : 1950 DATE OF ADMISSION: 11/26/2018 19:02 (CDT) PHONE: AGE: 68 N# [id number] GENDER: Male ENCOUNTER PHYSICIAN: Dr. Dash Hernandez M.D. 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 EATING: EATING - STEP 1: Does the patient require the assistance of a person or device, or need extra time when eating? No. EATING - SCORE: 7-IND GROOMING: Wash, rinse, and dry face Wash, rinse, and dry hands GROOMING - STEP 1: Does the patient require the assistance of a person or device, or need extra time when grooming? No. GROOMING - SCORE: 7-IND BATHING: Abdomen Buttocks Chest Left arm Left lower leg and foot Left upper leg Perineal area Right arm Right lower leg and foot Right upper leg BATHING - STEP 1: Does the patient require the assistance of a person or device, or need extra time when bathing? Yes. BATHING - STEP 2: Does the patient require the assistance of a helper? Yes. BATHING - STEP 3: How much assistance does the patient require from the helper? Only prior preparation such as putting bathing equipment within reach, turning on water, checking water temperature BATHING - SCORE: 5-SUP DRESSING - UPPER BODY: T-shirt/pullover shirt (four steps) ARTICLES SCORE Total number of steps: 4 DRESSING - UPPER BODY - STEP 1: Does the patient require help from a person or device, or need extra time when dressing above the tera st? No. DRESSING - UPPER BODY - SCORE: 7-IND DRESSING - LOWER BODY: Elastic waist pants (three steps) Sock - Left foot (one step) Tied or buckled shoe - Left foot (two steps) Underwear (three steps) ARTICLES SCORE Total number of steps: 9 DRESSING - LOWER BODY - STEP 1: Does the patient require help from a person or device, or need extra time when dressing below the tera st? Yes. DRESSING - LOWER BODY - STEP 2: Does the patient require the assistance of a helper? No. Patient requires an assistive device such as a business analyst sales operations. OR s/he takes more than reasonable time as s/he dresses the lower body, OR there is a con cern for safety when s/he dresses the lower body DRESSING - LOWER BODY - SCORE: 6-ANIYA TOILETING: TOILETING - STEP 1: Does the patient require the assistance of a person or device, or need extra time with toileting? Yes . TOILETING - STEP 2: Does the patient require the assistance of a helper? No. TOILETING - SCORE: 6-ANIYA BLADDER MANAGEMENT: Activity did not occur on this shift BLADDER MANAGEMENT - SCORE: 7-IND BOWEL MANAGEMENT: Activity did not occur on this shift BOWEL MANAGEMENT - SCORE: 7-IND TRANSFERS: BED, CHAIR, WHEELCHAIR: Activity did not occur on this shift TRANSFERS: BED, CHAIR, WHEELCHAIR - SCORE: 0-UNK TRANSFERS: TOILET: TRANSFERS: TOILET - STEP 1: Does the patient require the assistance of a person or device, or need extra time with toilet transfe rs? Yes. TRANSFERS: TOILET - STEP 2: Does the patient require the assistance of a helper? No. Patient only requires an assistive device winslow ch as a grab bar or special seat, OR s/he takes more than reasonable time to perform toilet transfers , OR there is a safety concern when s/he performs toilet transfers. TRANSFERS: TOILET - SCORE: 6-ANIYA TRANSFERS: SHOWER: Activity did not occur on this shift TRANSFERS: SHOWER - SCORE: 0-UNK TRANSFERS: TUB: TRANSFERS: TUB - STEP 1: Does the patient require the assistance of a person or device, or need extra time with tub transfers? Yes. TRANSFERS: TUB - STEP 2: Does the patient require the assistance of a helper? No. Only requires the assistance of an assistive device, OR takes more than reasonable time, OR there is a concern for safety when s/he performs tub transfers TRANSFERS: TUB - SCORE: 6-ANIYA LOCOMOTION: WALK: Activity did not occur on this shift LOCOMOTION: WALK - SCORE: 0-UNK LOCOMOTION: WHEELCHAIR: Activity did not occur on this shift LOCOMOTION: WHEELCHAIR - SCORE: 0-UNK LOCOMOTION: STAIRS: Activity did not occur on this shift LOCOMOTION: STAIRS - SCORE: 0-UNK COMPREHENSION: COMPREHENSION: TYPE: Both COMPREHENSION - STEP 1: Does the patient require help from a person or device, or need extra time to understand complex and a bstract ideas (such as current events, finances, discharge planning, medical issues, relationships, e tc)? No. COMPREHENSION - STEP 2: Does the patient need extra time, require an assistive device (such as glasses for visual comprehensi on or a hearing aid for auditory comprehension) or does s/he have mild difficulty understanding compl ex and abstract information? No. COMPREHENSION - SCORE: 7-IND EXPRESSION EXPRESSION: TYPE: Both EXPRESSION - STEP 1: Does the patient require help from a person or device, or need extra time expressing complex and abst ract ideas (such as current events, finances, discharge planning, medical issues, relationships, etc) ? No. EXPRESSION - STEP 2: Does the patient need extra time, require an assistive device (such as augmentive communication syste m or a communication board), OR does s/he have mild difficulty expressing complex and abstract ideas (including mild dysarthria or mild word-find problems)? No. EXPRESSION - SCORE: 7-IND SOCIAL INTERACTION: SOCIAL INTERACTION - STEP 1: Does the patient require a helper to interact with others in social and therapeutic situations? No. SOCIAL INTERACTION - STEP 2: Does the patient need extra time in social situations, OR does s/he interact with staff, other patien ts, and family members ONLY in structured environments, OR does s/he require medication for social in teraction? No. SOCIAL INTERACTION - SCORE: 7-IND PROBLEM SOLVING: PROBLEM SOLVING - STEP 1: Does the patient need help from a person or device, or need extra time to solve complex problems such as managing a checking account or confronting interpersonal problems? No. PROBLEM SOLVING - STEP 2: Does the patient require extra time to make decisions or solve problems, OR does s/he have slight dif ficulty reading, initiating, or self-correcting in unfamiliar situations? No. PROBLEM SOLVING - SCORE: 7-IND MEMORY: MEMORY - STEP 1: Does the patient need help from a person or device, or need extra time to remember frequently encount ered people, daily routines, and executing requests? No. MEMORY - STEP 2: Does the patient have slight difficulty recognizing frequently encountered people, daily routines, or executing requests without the need for repetition or using self-initiated or environmental cues to remember? No. MEMORY - SCORE: 7-IND SIGNATURE PANEL: The following modified sections: Eating - Score, Grooming - Score, Bathing - Score, Dressing - Upper Body - Score, Dressing - Lower Body - Score, Toileting - Score, Transfers: Bed, Chair, Wheelchair - S core, Transfers: Toilet - Score, Transfers: Shower - Score, Transfers: Tub - Score, Comprehension - S core, Expression - Score, Social Interaction - Score, Problem Solving - Score, Memory - Score were [e lectronically] signed by Laura Layne OT on FriDec 11 2018 15:24:51 T-0500 ([place] [facility])
--- NOTE | 2018-12-18 13:39 | R.PN ---
ENCOUNTER DATE AND TIME: 12/02/2018 18:31 (CDT) NAME YUMIKO NAVARRO DATE OF : 1950 DATE OF ADMISSION: 11/26/2018 19:02 (CDT) SEVERE PERIPHERAL ARTERY DISEASECHIEF COMPLAINT: Severe peripheral arterial disease with osteomyelitis SUBJECTIVE: Pt denied any depression. Pt denied any Shortness of Breath. Ambulated 228' with modified independence using a rolling walker. Self-propelled wheelchair 500' with modified independence. Up and down 10 steps with contact guard assistance. Hgb 9.2, glucose 120 to 151, HgA1c 6.8, calcium 8.4. VITAL SIGNS Temperature: 97.8 F SBP/DBP: 128/69 Pulse: 80 Resp: 16 MEDICATION ALLERGIES: No Known Drug Allergies (NKDA) ENVIRONMENTAL ALLERGIES: None Known - Substance Allergies None Known - Other Allergies None Known CONSULT: Perform Consult Certified Prosthetic for prosthesis construction NURSING: - Shower allowing shower - Lab Results blood Sugar Check ACHS PRECAUTIONS: - Weight Bearing Precaution NWB right LE ACTIVITIES OOB only with supervision THERAPIES: - Orthotics/Prosthetics Prosthetic Evaluation. - Occupational Therapy Evaluate and Treat. - Physical Therapy Evaluate and Treat. PHYSICAL EXAM - Gen Alert and awake Lying in bed No apparent distress Oriented to: person, time, and place - Skin Right foot bandage in place with good hemostasis. No abnormalities - Eyes No abnormalities - ENMT No abnormalities - Neck No abnormalities - CVS RRR - Chest No abnormalities - Abd + bowel sounds - GI nondistended Deferred - No abnormalities - Ext No significant edema - MSK 4+/5 weakness in both lower extremities. - Neuro No focal deficits - Psych No abnormalities ASSESSMENT: Pt. is a 68 yo Right-handed white male.On 11/04/2018 he was admitted to [facility] with diagnosis SEVERE PE RIPHERAL ARTERY DISEASE.His impairment category is Amputation of Limb 05 - Other Amputation (05.9).P re-morbidly, Pt. was independent/mod-I in Self-Care, Sphincter Control, Transfers Control, Locomotion , Communication, and Social Cognition; and he had good Sphincter Control.Currently, he has deficits o f Transfers Control, Locomotion, Endurance, Balance, Safety Awareness, and Self-Care.Pt. is now refer red to [facility] for acute in-patient rehabilitation in order to maximize pat ient's functional independence in activities of daily living, strength, ROM, and mobility.- Rehab Goa l Patient has realistic goal of being discharged at assistance level 6-Rian to reside at Home with Fam jenn/Relatives. MDM/PLAN: - Physical Therapy Gait dysfunction - to improve, our physical therapists will perform initial evaluation of pt's statu s upon admission and devise an individualized program for Gait Training, and Wheel Chair mobility Inability to transfer - to improve, our physical therapists will perform initial evaluation of pt's status upon admission and devise an individualized program for Bed mobility Need for home safety evaluation - to improve, our physical therapists will perform initial evaluatio n of pt's status upon admission and devise an individualized program for Home Evaluation Need in caregiver upon discharge - to improve, our physical therapists will perform initial evaluati on of pt's status upon admission and devise an individualized program for Caregiver Training Edema - to improve, our physical therapists will perform initial evaluation of pt's status upon admi ssion and devise an individualized program for Elevation Training, and Lymphedema Therapy New precaution - to improve, our physical therapists will perform initial evaluation of pt's status upon admission and devise an individualized program for Patient precaution education Poor balance - to improve, our physical therapists will perform initial evaluation of pt's status up on admission and devise an individualized program for Balance Training Poor endurance - to improve, our physical therapists will perform initial evaluation of pt's status upon admission and devise an individualized program for Endurance Training Weakness - to improve, our physical therapists will perform initial evaluation of pt's status upon a dmission and devise an individualized program for Aquatic Therapy, Neuromuscular Reeducation, and Str engthening Achieving independence - to improve, our physical therapists will perform initial evaluation of pt's status upon admission and devise an individualized program for Community Reintegration Activities - Occupational Therapy ADL deficits - to improve, our occupation therapists will perform initial evaluation of pt's status upon admission and devise an individualized program for Bathing, Bed mobility, Community Reintegratio n, Cooking, Dressing, Eating, Fine Motor Skills, Grooming, Homemaking, Kitchen Mobility, Laundry, Pat ient Education, Safety Awareness, Splinting - Positioning, Transfers(Toilet, Tub, Shower), and Wheel Chair Management Need for healthcare educator - to improve, our occupation therapists will perform initial evaluation of pt's status upon admission and devise an individualized program for Caregiver Training Weakness - to improve, our occupation therapists will perform initial evaluation of pt's status upon admission and devise an individualized program for Aquatic Therapy, Balance, Endurance, UE ROM, and UE strengthening - Diet Type Continue ADA 1800 - Diet - Liquid Texture Continue Regular - Tube Feed Continue N/A - Lab Results blood Sugar Check ACHS - Weight Bearing Precaution NWB right LE - N/A Perform Consult Certified Prosthetic for prosthesis construction - Diet - Solid Texture Continue Regular - Shower allowing shower FUNCTIONAL STATUS: UPDATED AT WEEKLY TEAM CONFERENCE - Bladder Same accident frequency: 7-Ind - No accidents in the past 7 days - Bowel Same accident frequency: 7-Ind - No accidents in the past 7 days - Walking Same score based on distance walked: 1(<=50ft) - Wheelchair Same score based on distance traveled: 0(N/A) FUNCTIONAL STATUS: - Self-Care A. Eating Ind B. Grooming sup C. Bathing sup D. Dressing - Upper sup E. Dressing - Lower sup F. Toileting sup - Sphincter Control G: Bladder control Ind H: Bowel control Ind - Transfers Control I. Bed/Chair/Wheelchair Brigid J. Toilet Brigid K. Tub/Shower ADNO - Locomotion L. Walk/Wheelchair (C) Brigid L. Walk/Wheelchair (W) Brigid M. Stairs ADNO - Communication N. Comprehension (B) Ind O. Expression (B) Ind - Social Cognition P. Social Interaction Ind Q. Problem Solving Ind R. Memory Ind - Endurance Fair - Balance Fair - Safety Awareness Fair [facility] DEFICITS: Transfers Control, Locomotion, Endurance, Balance, Safety Awareness, and Self-Care SIGNATURE PANEL: (CDT)
--- NOTE | 2018-12-18 13:40 | R.DS ---
FACILITY [facility] MR# [id number] NAME YUMIKO NAVARRO ADDRESS [id number] [address] [place] [address] [address] [address] PHONE DATE OF 1950 AGE 68 SSN# [id number] GENDER Male DEXTERITY Right-handed MARITAL STATUS RACE White ENCOUNTER PHYSICIAN Dr. Dash Hernandez M.D. REFERRING DOCTOR Mark Farias REFERRING FACILITY [facility] DISCHARGE DIAGNOSIS: - Amputation of Limb 05 - Other Amputation (05.9) SEVERE PERIPHERAL ARTERY DISEASE. DISCHARGE COMORBIDITIES: - Non-Tiered Type 2 diabetes mellitus with other specified complication (E11.69) Tobacco abuse - N/A HLD HTN peripheral vascular disease (PVD) DATE OF ADMISSION 11/26/2018 19:02 (CDT) MEDICATION ALLERGIES: No Known Drug Allergies (NKDA) ENVIRONMENTAL ALLERGIES: None Known - Substance Allergies None Known - Other Allergies None Known CONSULT: Perform Consult Certified Prosthetic for prosthesis construction NURSING: - Shower allowing shower - Lab Results blood Sugar Check ACHS PRECAUTIONS: - Weight Bearing Precaution NWB right LE ACTIVITIES OOB only with supervision THERAPIES: - Orthotics/Prosthetics Prosthetic Evaluation - Occupational Therapy Evaluate and Treat - Physical Therapy Evaluate and Treat HISTORY OF PRESENT ILLNESS: Pt. is a 68 yo Right-handed white male.On 11/04/2018 he was admitted to [facility] with diagnosis SEVERE PE RIPHERAL ARTERY DISEASE.His impairment category is Amputation of Limb 05 - Other Amputation (05.9).P re-morbidly, Pt. was independent/mod-I in Self-Care, Sphincter Control, Communication, and Social Cog nition; and he had good Sphincter Control.Currently, he has deficits of Transfers Control, Locomotion , Endurance, Balance, Safety Awareness, and Self-Care.Pt. is now referred to [facility] for acute in-patient rehabilitation in order to maximize patient's functional independence in activities of daily living, strength, ROM, and mobility.- Rehab Goal Patient has realistic goal of being discharged at assistance level 6-Rian to reside at Home with Fam jenn/Relatives. HOSPITAL COURSE: DIET - LIQUID TEXTURE: On 11/25/2018 Pt was upgraded to Regular Diet - Liquid Texture. DIET - SOLID TEXTURE: On 11/25/2018 Pt was upgraded to Regular Diet - Solid Texture. DIET TYPE: On 11/25/2018 Pt was changed to ADA 1800 Diet Type. TUBE FEED: On 11/25/2018 Pt was changed to N/A Tube Feed. WEIGHT BEARING PRECAUTION: On 11/25/2018 the following precautions were added for the patient: Weight Bearing Precaution - NWB r ight LE. On 11/27/2018 the following precautions were added for the patient: Weight Bearing Precaution - NWB right LE. On 12/01/2018 the following precautions were removed for the patient: Weight Bearing Precaution - NW B right LE. On 12/07/2018 the following precautions were added for the patient: Weight Bearing Precaution - NWB right LE. DISCHARGE PHYSICAL EXAM - Gen Alert and awake Lying in bed No apparent distress Oriented to: person, time, and place - Skin Right foot bandage in place with good hemostasis. No abnormalities - Eyes No abnormalities - ENMT No abnormalities - Neck No abnormalities - CVS RRR - Chest No abnormalities - Abd + bowel sounds - GI nondistended Deferred - No abnormalities - Ext No significant edema - MSK 4+/5 weakness in both lower extremities. - Neuro No focal deficits - Psych No abnormalities FUNCTIONAL STATUS: - Self-Care A. Eating 7-Ind B. Grooming 7-Ind C. Bathing 6-Rian D. Dressing - Upper 7-Ind E. Dressing - Lower 6-Rian F. Toileting 6-Rian - Sphincter Control G: Bladder control 7-Ind H: Bowel control 7-Ind - Transfers Control I. Bed/Chair/Wheelchair 6-Rian J. Toilet 6-Rian K. Tub/Shower 6-Rian - Locomotion L. Walk/Wheelchair (C) 6-Rian L. Walk/Wheelchair (W) 6-Rian M. Stairs 5-sup - Communication N. Comprehension (B) 7-Ind O. Expression (B) 7-Ind - Social Cognition P. Social Interaction 7-Ind Q. Problem Solving 7-Ind R. Memory 7-Ind - Endurance Fair - Balance Fair - Safety Awareness Fair DISCHARGE INSTRUCTIONS: - N/A Eliquis 2.5 mg twice daily. DISCHARGE PLAN, FOLLOW UP CARE PROVISIONS: - Estimated Length of Stay (days) 13. - Consensus on plan Discharge plan has been discussed with primary caregiver. Patient/Family is in agreement with the devika n. Primary caregiver is in agreement with the plan. - Patient/Family Goals Return home with assistance. - Planned Living Setting Upon Discharge Home, to live with Family/Relatives. SIGNATURE PANEL: (CDT)
== END 2018-12-10 13:55 | disposition home health service (06) | DRG 300 ==
LOC: 5TH 11-26 19:02
PROVIDERS: ADMIT Psychiatry & Neurology Neurology with Special Qualifications in Child Neurology; ATTEND Psychiatry & Neurology Neurology with Special Qualifications in Child Neurology
DX: I73.9 Peripheral vascular disease, unspecified (principal); T87.43 Infection of amputation stump, right lower extremity; M86.9 Osteomyelitis, unspecified; E13.9 Other specified diabetes mellitus without complications; E78.5 Hyperlipidemia, unspecified; I10 Essential (primary) hypertension; F17.200 Nicotine dependence, unspecified, uncomplicated
CPT/HCPCS: 36415; 80048; 80061; 81001; 82040; 82043; 82570; 82962; 83036; 83735; 84134; 85025; 85652; 86140; 87070; 87075; 87077; 87086; 87088; 87186; 87205; 92508; 92523; 97110; 97116; 97150; 97162; 97167; 97530; 97542; J2543; J3590

== ENCOUNTER 2020-12-26 11:19 | Inpatient (IN) | payer OTHER ==
--- OUTSIDE RECORDS SUMMARY | 2020-12-26 13:45 | XMS REPORT | Continuity of Care Document ---
:1950 Author Organization [facility] t Address [address] [place] [address] Care Team Providers Name Role Phone Tasha Padilla DO Attending Clinician Lanie PAULSON Attending Clinician Marisela PAULSON Attending Clinician Santhosh PAULSON Attending Clinician Faviola Steel LMSW Attending Clinician Vanessa PAULSON Attending Clinician Marisela PAULSON Admitting Clinician Problems This patient has no known problems. Allergies, Adverse Reactions, Alerts This patient has no known allergies or adverse reactions. Medications This patient has no known medications. Procedures This patient has no known procedures. Encounters Start End Encounter Admission Attending Care Care Encounter Source Date/Time Date/Time Type Type Clinicians Facility Department ID 2020-10-25 2020-11-10 [facility] Alyssa Padilla [facility] [id number] 09:34:00 17:01:00 Encounter Mehdi Dela Cruz [id number] [place] [id number] Dewey Trevizo [id number] [facility] 114 (CLC) 2020-10-23 2020-10-23 Patient [employer] [id number] 00:00:00 00:00:00 Outreach Stacy Waldron [id number] [place] [id number] [facility] [phone] [address] 2020-10-23 2020-10-23 [facility] [id number] 00:00:00 00:00:00 Ernestine Chivo [id number] [place] [id number] [facility] [id number] [address] Results This patient has no known results.
[2020-12-26] MEDS ORDERED: GLUCAGON 1 MG/VIAL IM PRN (14:32)
[2020-12-26] MEDS ORDERED: D50W 25 GM/50 ML SYRINGE IV PRN (14:32)
[2020-12-26 14:33] VITALS: BMI 24.7
[2020-12-26] MEDS ORDERED: ONDANSETRON 4 MG (ODT) TAB PO PRN (15:00)
[2020-12-26] MEDS ORDERED: POLYETHYL GLY 3350 17 GM/DOSE PO PRN (15:00)
[2020-12-26] MEDS ORDERED: LOPERAMIDE HCL 2 MG CAPSULE PO PRN (15:00)
[2020-12-26] MEDS ORDERED: ACETAMINOPHEN 325 MG TABLET PO PRN (15:00)
[2020-12-26] MEDS ORDERED: DIPHENHYDRAMINE 25 MG TAB/CAP PO PRN (15:00)
[2020-12-26] MEDS ORDERED: ONDANSETRON 4 MG/2 ML VIAL IV PRN (15:00)
[2020-12-26 15:30] LABS: Absolute Lymphocytes (CBC) 3.9 K/uL (0.7-4.9); Basophils % 1.2 % (0-1.3); Hematocrit 36.6 % (39.6-49.0); Lymphocytes % 31.7 % (15.3-44.8); MPV 7.9 fL (7.6-11.3); RBC Red Blood Cell Count 4.38 M/uL (4.33-5.43)
[2020-12-26 15:55] LABS: Bilirubin Direct 0.1 mg/dL (0-0.2); Bilirubin Total 0.6 mg/dL (0.2-1.0); Magnesium 1.7 mg/dL (1.8-2.4); Phosphorus 3.9 mg/dL (2.5-4.9); Potassium 4.3 mmol/L (3.5-5.1); Protein, Total 8.1 g/dL (6.4-8.2)
[2020-12-26 15:57] LABS: Thyroid Stimulating Hormone 4.64 uIU/mL (0.360-3.740)
[2020-12-26] MEDS: INSULIN -REGULAR HUMAN 50 UNIT/0.5 ML ML SQ SCH ×2 (16:30→21:00)
--- NOTE | 2020-12-26 16:49 | RAD REPORT ---
EXAM DESCRIPTION: US - Extrem Venous W Compress Jose Manuel - 12/26/2020 4:32 pm CLINICAL HISTORY: DVT R/O, leg pain and swelling COMPARISON: None. TECHNIQUE: Real-time sonographic evaluation of the bilateral lower extremity common femoral, superfi cial femoral, popliteal and posterior tibial veins was performed. FINDINGS: Normal compressibility, flow augmentation, phasic flow and spontaneous flow are identified in the left and right lower extremity common femoral, superficial femoral, popliteal and posterior t ibial veins. No intraluminal filling defects seen. IMPRESSION: No DVT in either lower extremity.
--- NOTE | 2020-12-26 17:33 | RAD REPORT ---
EXAM DESCRIPTION: RAD - Chest Pa And Lat (2 Views) - 12/26/2020 5:21 pm CLINICAL HISTORY: Direct Admit, shortness of breath COMPARISON: None TECHNIQUE: Frontal and lateral views of the chest were obtained. FINDINGS: The lungs are clear of a peripheral mass or consolidation. Granuloma seen in the left midl trixie field. Prominence of the interstitial pattern is favored to be chronic fibrotic change rather th an acute edema or infiltrate. Heart size is normal and central vasculature is within normal limits. No pleural effusion or pneumothorax seen. No acute bony finding noted. No aortic abnormality. IMPRESSION: No mass or consolidation. No failure or volume overload. Prominent interstitial pattern favored to be fibrosis over interstitial edema or infiltrate.
--- NOTE | 2020-12-26 17:49 | RAD REPORT ---
EXAM DESCRIPTION: CT - Lower Ext Angio - 12/26/2020 5:06 pm CLINICAL HISTORY: for PVDleg pain COMPARISON: No comparisons TECHNIQUE: During dynamic enhancement using nonionic IV contrast, axial 3 millimeter thick images of the left lower extremity were obtained. Imaging extended from the distal abdominal aorta to the plan tar level of the foot. Coronal and sagittal reformatted images were generated and reviewed. The CT scan was performed using dose optimization techniques as appropriate to a performed exam incl uding one or more of the following: Automated exposure control, adjustment of the mA and/or kV accord ing to patient size (this includes techniques or standardized protocols for targeted exams where dose is matched to indication/reason for exam) and use of iterative reconstruction technique. FINDINGS: No surgical history for the patient as detailed. Distal aorta is 2 cm in diameter with peripheral calcifications. Left common carotid artery origin sh ows prominent calcified and noncalcified atherosclerotic change with a 70% short-segment luminal sten osis. Atherosclerotic calcifications cause approximately 50% stenosis at the origin of the internal i liac artery. Extensive calcifications in the internal iliac artery are present without additional lev els of significant stenosis. There is approximately 50% stenosis over several cm of the proximal portion left external iliac arter y. Numerous additional areas of calcified and noncalcified atherosclerotic changes 80% stenoses of th e distal portions of the left external iliac artery. Common femoral artery is normal in diameter and this may be a postsurgical finding in this segment. Muscular branches of the left lower extremity art erial tree proximally are unremarkable. The left common femoral- superficial femoral junction is full y occluded. Only faint amounts of contrast are visible in the superficial femoral artery. There is sh ort-segment re- cannulization near the adductor canal from muscular branches. Distal most SFA is agai n occluded. There is recanalization at the popliteal artery but multiple segments of significant grea ter than 50% stenosis identifiable. Calcifications cause significant greater than 50% stenosis of the distal popliteal artery. Posterior tibial and peroneal with two-vessel runoff is seen into the foot. IMPRESSION: Patient has very severe left lower extremity peripheral arterial disease with multiple a reas of stenosis ranging from moderate (50%) to fully occlusive extending from the left common iliac artery origin to the bifurcation of the distal popliteal artery. Left common femoral artery is normal in diameter and may represent bypass graft.
[2020-12-26] MEDS: NACHLORIDE 0.45% 1,000 ML IV SCH (17:56)
[2020-12-26 18:32] LABS: Urine Appearance CLEAR (Clear); Urine Bilirubin NEGATIVE (Negative); Urine Blood NEGATIVE (Negative); Urine Color YELLOW (Yellow); Urine Glucose TRACE (Negative); Urine Protein 1+ (Negative); Urine Specific Gravity 1.015 (1.005-1.030)
[2020-12-26 19:27] LABS: Urine Bacteria NONE SEEN /HPF (NONE SEEN); Urine RBC <5 /HPF (NONE SEEN)
[2020-12-27] MEDS: INSULIN -REGULAR HUMAN 50 UNIT/0.5 ML ML SQ SCH ×5 (07:30→21:00)
[2020-12-27 08:39] LABS: Absolute Lymphocytes (CBC) 2.8 K/uL (0.7-4.9); Basophils % 0.7 % (0-1.3); Hematocrit 32.3 % (39.6-49.0); Lymphocytes % 28.9 % (15.3-44.8); MPV 7.3 fL (7.6-11.3); RBC Red Blood Cell Count 3.88 M/uL (4.33-5.43)
[2020-12-27 08:58] LABS: BUN Blood Urea Nitrogen 13 mg/dL (7-18); Bicarbonate 31 mmol/L (21-32); Glucose Level 149 mg/dL (74-106); Magnesium 1.8 mg/dL (1.8-2.4); Potassium 4.4 mmol/L (3.5-5.1); Sodium Level 141 mmol/L (136-145)
[2020-12-27] MEDS ORDERED: NA CHLORIDE 0.9% 1,000 ML ONE (09:13)
[2020-12-27] MEDS ORDERED: MELATONIN 3 MG TABLET PO PRN (09:17)
[2020-12-27] MEDS ORDERED: HOME MED 1 EA UNK (Acetaminophen [Tylenol] 325 MG Capsule) PO PRN (09:17)
[2020-12-27] MEDS ORDERED: HYDRALAZINE HCL 10 MG TABLET PO PRN (09:17)
[2020-12-27] MEDS ORDERED: HYDROCODONE/APAP 5/325 MG TAB PO PRN (09:17)
[2020-12-27] MEDS ORDERED: CEFAZOLIN/SWI 1gm 1 GM/10 ML SYR ONE (09:17)
[2020-12-27] MEDS ORDERED: propofoL 200 MG/20 ML VIAL IV ONE (10:41)
[2020-12-27] MEDS ORDERED: FENTANYL CITR 100 MCG/2 ML ONE (10:41)
[2020-12-27] MEDS ORDERED: LIDOCAINE 1% MPF 5 ML VIAL ONE (10:41)
--- NOTE | 2020-12-27 10:59 | P.OP ---
Chief Design Branch: Matthew SAMAYOA Preoperative diagnosis: Non healing wound left foot and heel Postoperative diagnosis: same Primary procedure: Excisional debridement left foot and heel wounds to sq and mm Anesthesia: General Estimated blood loss: Min Specimen: C&S Findings: as above Complications: None Transferred to: Recovery Room Condition: Good
[2020-12-27] MEDS ORDERED: MAGNESIUM SULFATE 1 gm IVPB 1 GM/100 ML BAG IV ONE (11:00)
[2020-12-27] MEDS ORDERED: COLLAGENASE 30 GM OINTMENT TOP ONE (11:10)
[2020-12-27] MEDS: INSULIN LISPRO 100 UNIT/1 ML SQ SCH ×4 (11:29→21:00)
[2020-12-27] MEDS ORDERED: D50W 25 GM/50 ML VIAL IV PRN (12:00)
--- NOTE | 2020-12-27 13:09 | PREOPCON ---
Date of Consultation: 12/26/2020 Reason: Nonhealing wound, left foot and heel. History Of Present Illness: The patient is a 70-year-old gentleman who was admitted by Dr. Brynn reed h nonhealing wound on the left foot and heel that needs surgical debridement. He had been followed in [facility] recently and the wounds has been therefore 2 to 3 months. There is no purulent discharge. He does not have signs or symptoms of sepsis. No chest pain. No sore throat, runny nose, cough, headac hes, or dizziness. No fever or chills. He has had surgery and lost toes on the right lower extremit y in the past. Review of Systems: Otherwise unremarkable. Medications: He was on Plavix, but his last dose was Friday. He is on Lovenox currently. Past Medical History: Significant for diabetes, hypertension, hyperlipidemia, COPD, aortic stenosis, tobacco use. Past Surgical History: CABG, foot amputation, left hand carpal tunnel surgery. Allergies: NO ALLERGIES. Social History: The patient is a former smoker. He denies drinking. Family History: Noncontributory. Physical Examination: Vital Signs: Stable. He is currently afebrile. General: He is awake, alert, oriented x3. Head and neck: Cranial nerves 2 through 12 grossly within normal limits. No neck masses. No JVD. Throat clear. Neck is supple. Chest: Clear. Heart: S1, S2. Abdomen: Soft. Extremities: neurovascularly intact. Well-healed wound on the right foot. On the dorsum of the lef t foot, there is approximately an 8 x 6 cm wound with some granulation tissue around the edges. Mode rate amount of fibrin in the middle and there is a tendon exposed as well. On the heel, there is reynaldo roximately a 3 x 3 cm stage III pressure ulcer with moderate amount of fibrin. No surrounding erythe ma, warmth or edema. Laboratory Data: Reviewed. His white count is 12.2 on admission, today is 9.7. There is no left sh ift. Chemistry reviewed. The patient had a venous study done which was negative for DVT and lower e xtremity. CTA done which showed patient has a very severe left lower extremity peripheral arterial d isease with multiple areas of stenosis ranging from moderate 50% to fully occlusive from the left com mon iliac artery into the bifurcation and the distal popliteal. Left common femoral artery is normal in diameter and may represent a bypass graft. Assessment: Nonhealing wound, left foot and heel with severe peripheral vascular disease. Plan: For the time being, the patient needs surgical debridement. We will go ahead and debride the wound. The patient understands the risks, benefits, alternatives and we will institute local wound c are. He will need further followup with the Vascular Service to determine if intervention can help w ith circulation for this patient. Plan of care discussed with Dr. Swain. /MODL Voice ID: [id number] Report ID: [id number]
--- NOTE | 2020-12-27 15:18 | OP ---
Date of Procedure: 12/27/2020 Surgeon: Dileep Sharp MD Card Stripper: YAO Muniz. Preoperative Diagnosis: Nonhealing wound, left foot and heel. Postoperative Diagnosis: Nonhealing wound, left foot and heel. Procedures: 1.Excisional debridement of left foot wound 6 x 8 cm to subcutaneous tissue and muscle. 2.Excisional debridement of left heel wound 3 x 3 cm to subcutaneous tissue. Estimated Blood Loss: Minimal. Specimen: Tissue for culture and sensitivity. Finding: As above. Anesthesia: General. Complications: None. Disposition: The patient tolerated the procedure in stable condition and taken to Recovery in good g eneral condition. Procedure In Detail: The patient was brought to the OR and placed in supine position. General anest hesia begun. The patient was prepped and draped in the usual sterile fashion. A sharp dissection ut ilizing iris scissors were used to debride all of the necrotic fibrin that was present including some of the tendons and they were debrided down through the deep subcutaneous tissue and muscle. Bone wa s exposed. The patient does have chronic osteo secondary to that in the dorsum of the foot and heel. The foot pad was debrided all the way down to the muscle layer. Wound irrigated. Bleeding was min imal and easily controlled with pressure and cautery. Then, collagenase dressing was applied. The patient awakened and taken to Recovery in good general condition. /MODL Voice ID: [id number] Report ID: [id number]
[2020-12-27] MEDS ORDERED: METFORMIN HCL 500 MG TAB PO SCH (17:00)
--- NOTE | 2020-12-27 20:11 | P.PN ---
Subjective Date of Service: 12/27/20 Chief Complaint: DIABETIC FOOT ULCER MR LIPSCOMB HAS NO NEW COMPLAINTS. Review of Systems 10-point ROS is otherwise unremarkable General: Weakness Integumentary: As per HPI Physical Examination - Vital Signs Temperature: 97.9 F Blood Pressure: 145/64 Pulse: 68 Respirations: 18 Pulse Ox (%): 97 - Physical Exam General: Oriented x3, Mild distress HEENT: Atraumatic, PERRLA, EOMI Neck: Supple, JVD not distended Respiratory: Clear to auscultation bilaterally, Normal air movement Cardiovascular: Regular rate/rhythm, Normal S1 S2 Gastrointestinal: Normal bowel sounds, No tenderness Musculoskeletal: No tenderness Integumentary: No rashes, Diabetic ulcer Neurological: Normal speech, Normal tone, Normal affect Lymphatics: No axilla or inguinal lymphadenopathy - Studies Laboratory Data (last 24 hrs) 12/27/20 : Magnesium Cancelled 12/27/20 14:35: Sodium Cancelled, Potassium Cancelled, BUN Cancelled, Creatinine Cancelled, Glucose Cancelled, Magnesium Cancelled 12/27/20 14:34: WBC Cancelled, Hgb Cancelled, Hct Cancelled, Plt Count Cancelled 12/27/20 08:28: WBC 9.70 D, Hgb 11.2 L, Hct 32.3 L, Plt Count 265 12/27/20 08:28: Sodium 141, Potassium 4.4, BUN 13, Creatinine 0.68, Glucose 149 H, Magnesium 1.8 Medications List Reviewed: Yes Assessment And Plan - Current Problems (Diagnosis) (1) Diabetic ulcer of left foot Current Visit: No Status: Chronic Plan: DEBRIDED TODAY. DR. RODRÍGUEZ SAYS THAT HIS FORFOOT IS NOT SUPPORTED WELL TENDONS ARE EXPOSED AND WEAK. HE HAS SEVERE AND INOPERABLE PVD. HEEL ULCER MRI PENDING. Qualifiers: Diabetic foot ulcer location: midfoot Diabetes mellitus type: type 2 (2) PVD (peripheral vascular disease) Current Visit: No Status: Acute (3) Diabetes Current Visit: No Status: Chronic Qualifiers: Diabetes mellitus type: type 2
[2020-12-27] MEDS ORDERED: ATORVASTATIN 40 MG TAB PO SCH (21:00)
[2020-12-27] MEDS: VITAMIN D 1000 UNIT TAB PO SCH (21:51)
[2020-12-28 01:19] VITALS: O2SAT 97
[2020-12-28] MEDS: NACHLORIDE 0.45% 1,000 ML IV SCH (06:18)
[2020-12-28] MEDS: INSULIN -REGULAR HUMAN 50 UNIT/0.5 ML ML SQ SCH (07:30)
[2020-12-28] MEDS ORDERED: GLIMEPIRIDE 2 MG TABLET PO SCH (07:30)
[2020-12-28] MEDS: INSULIN LISPRO 100 UNIT/1 ML SQ SCH (07:30)
[2020-12-28 08:43] VITALS: BP 142/63; TEMP 97
[2020-12-28] MEDS ORDERED: ENOXAPARIN 40 MG/0.4 ML SQ SCH (09:00)
[2020-12-28] MEDS ORDERED: LOSARTAN POTASSIUM 50 MG TABLET PO SCH (09:00)
[2020-12-28] MEDS ORDERED: COLLAGENASE 30 GM OINTMENT TOP SCH (09:00)
[2020-12-28] MEDS: VITAMIN D 1000 UNIT TAB PO SCH (09:32)
--- NOTE | 2020-12-28 22:15 | P.DS ---
Admission Date: 12/26/20 Discharge Date: 12/28/20 Disposition: ROUTINE DISCHARGE Discharge Condition: FAIR Reason for Admission: DIABETIC FOOT ULCER - Problems (1) Diabetic ulcer of left foot Status: Chronic Qualifiers: Diabetic foot ulcer location: midfoot Diabetes mellitus type: type 2 (2) PVD (peripheral vascular disease) Status: Acute (3) Diabetes Status: Chronic Qualifiers: Diabetes mellitus type: type 2 Hospital Course: MR. NAVARRO HAS SEVERE PVD FROM DIABETES WITH HEAVY SMOKING. HE STILL SMOKES DESPITE OUR EFFORTS. HE HAD PROCEDURE DONE FOR PVD. HE COMES TO WOUND CENTER WITH ULCER WITH DEEP SLOUGH. I ADVISED HOSPITAL ADMISSION TO DEBRIDE, AFTER THAT HE IS DISCHARGED AND WILL GO TO DR. SHARP FOR WOUND CARE FOR NOW. I AM AFRAID HE WILL END UP NEEDING BKA HE IS NOT GOING TO HEAL. Vital Signs/Physical Exam: Temp Pulse Resp BP Pulse Ox 97.0 F 68 16 142/63 H 97 12/28/20 08:00 12/28/20 08:00 12/28/20 08:00 12/28/20 08:00 12/28/20 08:00 Laboratory Data at Discharge: WBC Cancelled 12/28/20 14:34 Hgb Cancelled 12/28/20 14:34 Hct Cancelled 12/28/20 14:34 Plt Count Cancelled 12/28/20 14:34 APTT 35.4 SECONDS (24.3-36.9) 12/26/20 15:14 Sodium Cancelled 12/28/20 14:35 Potassium Cancelled 12/28/20 14:35 BUN Cancelled 12/28/20 14:35 Creatinine Cancelled 12/28/20 14:35 Glucose Cancelled 12/28/20 14:35 Phosphorus 3.9 mg/dL (2.5-4.9) 12/26/20 15:14 Magnesium Cancelled 12/28/20 14:35 Total Bilirubin 0.6 mg/dL (0.2-1.0) 12/26/20 15:14 AST 11 U/L (15-37) L 12/26/20 15:14 ALT 20 U/L (12-78) 12/26/20 15:14 Alkaline Phosphatase 53 U/L (45-117) 12/26/20 15:14 Home Medications: Clopidogrel Bisulfate [Plavix*] 75 mg PO DAILY 11/26/18 Metformin HCl 1,000 mg PO DAILY AT SUPPER 11/26/18 Acetaminophen [Tylenol] 650 mg PO Q6H PRN 12/26/20 Atorvastatin Calcium 40 mg PO BEDTIME 12/26/20 Cholecalciferol (Vitamin D3) [Vitamin D3] 2,000 unit PO BID 12/26/20 Ciprofloxacin HCl 750 mg PO BID 12/26/20 Clopidogrel Bisulfate [Plavix*] 75 mg PO DAILY 12/26/20 Doxycycline Monohydrate 100 mg PO BID 12/26/20 Doxycycline Monohydrate 100 mg PO BID 12/26/20 Glimepiride 4 mg PO DAILY 12/26/20 Hydralazine HCl 10 mg PO Q6H PRN 12/26/20 Hydrocodone 5/APAP 325 [[place] 5/325*] 1 tab PO Q6H PRN 12/26/20 Insulin Lispro [Humalog Kwikpen U-100] 1 unit SQ ACHS 12/26/20 Losartan Potassium 50 mg PO DAILY 12/26/20 Melatonin 3 mg PO BEDTIME PRN PRN 12/26/20 Multivit with Iron,Minerals [Complete Senior] 1 tab PO DAILY 12/26/20 Nitroglycerin Oint [Nitrol Oint*] 1 gm TD DAILY 12/26/20 Pantoprazole Sodium 40 mg PO DAILY 12/26/20 Silver Sulfadiazine Crm [Silvadene] 1 appl TOP TID 12/26/20 Collagenase [Santyl Ointment*] 0 appl TOP DAILY tube 12/28/20 Followup: Clovis Swain MD [Primary Care Provider] - (call to schedule appointment) Dileep Sharp MD [ACTIVE - CAN ADMIT] - 1-2 Weeks (call to schedule appointment in [facility] )
== END 2020-12-28 10:50 | disposition home health service (06) | DRG 264 ==
LOC: PREOBSVTOIN 11:20 → 4TH 13:42
PROVIDERS: ADMIT Internal Medicine; ATTEND Internal Medicine
PROC: 0JBR0ZZ Excision of Left Foot Subcutaneous Tissue and Fascia, Open Approach (ICD-10-PCS; 2020-12-27)
PROC: 0KBW0ZZ Excision of Left Foot Muscle, Open Approach (ICD-10-PCS; principal; 2020-12-27 10:30)
DX: E11.51 Type 2 diabetes mellitus with diabetic peripheral angiopathy without gangrene (principal); M31.9 Necrotizing vasculopathy, unspecified; L97.424 Non-pressure chronic ulcer of left heel and midfoot with necrosis of bone; E11.621 Type 2 diabetes mellitus with foot ulcer; E11.59 Type 2 diabetes mellitus with other circulatory complications; E78.5 Hyperlipidemia, unspecified; I10 Essential (primary) hypertension; J44.9 Chronic obstructive pulmonary disease, unspecified; Z89.431 Acquired absence of right foot; Z95.5 Presence of coronary angioplasty implant and graft; Z79.82 Long term (current) use of aspirin; Z79.02 Long term (current) use of antithrombotics/antiplatelets; Z79.899 Other long term (current) drug therapy; Z79.4 Long term (current) use of insulin; Z95.1 Presence of aortocoronary bypass graft; Z87.891 Personal history of nicotine dependence; Z20.822 Contact with and (suspected) exposure to COVID-19
CPT/HCPCS: 11042; 36415; 71046; 73706; 80048; 80076; 81001; 82043; 82570; 82947; 83036; 83735; 84100; 84439; 84443; 85025; 85730; 87040; 87070; 87176; 87205; 88304; 93970; 99204; J0690; J1650; J1815; J2704; J3010; J3475; J3590; J7030; Q9967; U0003